=== PATIENT | male | born 1980 | race African-American/Black ===

== ENCOUNTER 2021-05-14 02:37 | Day surgery (SDC) | payer OTHER, SELFPAY ==
[2021-05-08 13:27] VITALS: BMI 36.2
[2021-05-14 08:45] VITALS: BP 141/78; PULSE 82; RESP 18; TEMP 36.4; O2SAT 100; BMI 37.5
--- NOTE | 2021-05-14 08:50 | WPDANESEPPF ---
Anes - Initial Pre Proc Eval Procedure: Operation Date: 05/14/21 09:30 Proposed Procedures p Colonoscopy - López Gauthier MD Date/Time: 05/14/21 08:50 Surgeon: López Gauthier MD Pre Op Diagnosis: diverticulitis Patient Data Age: 40 Gender: M Height: 1.91 m Weight: 136.1 kg Last Vital Signs Temp 36.4 C L 05/14/21 08:45 Pulse 82 05/14/21 08:45 Resp 18 05/14/21 08:45 BP 141/78 H 05/14/21 08:45 Pulse Ox 100 05/14/21 08:45 Allergies Allergy/AdvReac Type Severity Reaction Status Date / Time No Known Allergies Allergy Unknown Verified 05/14/21 08:44 Home Medications Medication Instructions Recorded Confirmed Type fluticasone propionate 50 1 spray NASAL DAILY PRN 11/08/19 05/08/21 History mcg/actuation nasal spray,suspension alprazolam [Xanax] 0.5 mg PO TID PRN 05/08/21 05/08/21 History valsartan-hydrochlorothiazide 1 tablet PO DAILY 05/08/21 05/08/21 History Patient hx anesthesia problems: none Family hx anesthesia problems: none Results Review: All pre-operative results and documents have been reviewed as part of the pre-operative evaluation. [facility] Past Medical History Medical History (Updated 05/14/21 @ 08:50 by Farshad Linares MD) Anxiety Hypertension Obesity RYAN (obstructive sleep apnea) Surgical History Surgical History Status post incision and drainage I&D complex pilonidal abscess 2017 Family History Family History Father Diabetes mellitus Mother Diabetes mellitus Breast cancer Hypertension Unknown Diabetes mellitus Hypertension Cancer Social History Social History Smoking status: Never smoker Alcohol intake: current Alcohol use details: rarely Substance use: current Substance use type: marijuana Last use: last year Living arrangements: with family Spiritual care concerns: No Anes - Eval Final PreProcedure Day of Procedure 05/14/21 08:50 Patient weight: obese Heart: regular rate and rhythm Lungs: clear to auscultation Airway: Mallampati scale class II Neurological: alert and oriented Last oral intake: >/= 8 hours ASA classification: III Emergent: no Anesthetic plan: proceed Anesthesia type and monitoring: general GIVS and standard monitoring Results Review: All pre-operative results and documents have been reviewed as part of the pre-operative evaluation. Informed Consent: The patient's anesthetic plan and its attendant risks and benefits were discussed with the patient/family/POA. Questions were solicited and answers provided to the satisfaction of the patient/family/POA.
[2021-05-14] MEDS: LACTATED RINGERS 1,000 ML 150 ML IV CONT (08:55)
--- NOTE | 2021-05-14 09:13 | P.CONGI_ITS ---
Assessment and Plan Assessment and plan (1) Diverticulitis: Code(s): K57.92 - Diverticulitis of intestine, part unspecified, without perforation or abscess without bleeding Status: Acute Assessment and Plan: Patient has a history of diverticulitis. Currently improved clinically. Plan is for high-fiber diet. Colonoscopy has been recommended will plan to proceed with this. It was deferred last year because of COVID restrictions. GI Consult Note Consult date/time: 05/14/21 09:13 HPI: Suzie Osorio is a 40 year old male presents for colonoscopy. Patient has a history of diverticulitis last year. He had rather significant abdominal pain that has subsequently improved after antibiotics. Currently bowel habits returned to normal. Denies abdominal pain. He has had no bleeding. His appetite is good. He has had intentional weight loss with dietary restriction. He presents today for colonoscopy because of prior history of diverticulitis. Review of Systems Review of Systems: All systems reviewed & are unremarkable except as noted in HPI and below PMFSH Past Medical History Medical History (Updated 05/14/21 @ 09:15 by López Gauthier MD) Anxiety Hypertension Obesity RYAN (obstructive sleep apnea) Surgical History Surgical History Status post incision and drainage I&D complex pilonidal abscess 2016 Family History Family History Father Diabetes mellitus Mother Diabetes mellitus Breast cancer Hypertension Unknown Diabetes mellitus Hypertension Cancer Social History Social History Smoking status: Never smoker Alcohol intake: current Alcohol use details: rarely Substance use: current Substance use type: marijuana Last use: last year Living arrangements: with family Spiritual care concerns: No Meds Home Medications and Allergies Home Medications Medication Instructions Recorded Confirmed Type fluticasone propionate 50 1 spray NASAL DAILY PRN 11/08/19 05/08/21 History mcg/actuation nasal spray,suspension alprazolam [Xanax] 0.5 mg PO TID PRN 05/08/21 05/08/21 History valsartan-hydrochlorothiazide 1 tablet PO DAILY 05/08/21 05/08/21 History Allergies Allergy/AdvReac Type Severity Reaction Status Date / Time No Known Allergies Allergy Unknown Verified 05/14/21 08:44 Vital Signs Vital Signs - 24 hr 05/14/21 08:45 Temperature 97.5 F L Pulse Rate 82 Respiratory Rate 18 Blood Pressure 141/78 H Pulse Oximetry 100 Exam Narrative: Physical exam reveals patient to be alert. Vital signs stable. HEENT exam is unremarkable. Patient is anicteric. Lungs are clear to ausc ultation and percussion. Heart is without murmur or extra sounds. Abdominal exam bowel sounds are present soft nontender with no organomegaly. Digital external rectal exam is normal.
[2021-05-14 09:52] VITALS: BP 112/42; PULSE 82; RESP 16; O2SAT 100
[2021-05-14 10:02] VITALS: BP 117/65; PULSE 77; RESP 18; O2SAT 100
[2021-05-14 10:12] VITALS: BP 134/77; PULSE 75; RESP 22; O2SAT 100
== END 2021-05-14 10:27 | disposition home or self-care (01) ==
PROVIDERS: PCP Family Medicine; Visit Provider Internal Medicine Gastroenterology
PROC: 0DJD8ZZ Inspection of Lower Intestinal Tract, Via Natural or Artificial Opening Endoscopic (ICD-10-PCS; CPT 45378; principal; 2021-05-14 09:30)
DX: K57.32 Diverticulitis of large intestine without perforation or abscess without bleeding (principal); D12.4 Benign neoplasm of descending colon; G47.33 Obstructive sleep apnea (adult) (pediatric); F41.9 Anxiety disorder, unspecified
CPT/HCPCS: 45385; 88305; J2704; J7120

== ENCOUNTER 2021-12-14 13:02 | Emergency (ER) | payer OTHER, SELFPAY ==
--- NOTE | ~2021-12-14 | XR_ITS ---
XR humerus LT DATE: 12/14/2021 13:43 INDICATION: Left arm pain TECHNIQUE: AP and lateral views COMPARISON: None FINDINGS: Dorsal olecranon process spur. Normal alignment at the acromioclavicular, glenohumeral and elbow joints. No fracture or dislocation, periosteal reaction or bone destruction of the left humerus. IMPRESSION: Dorsal olecranon process spur Reviewed, dictated and finalized at location A.
--- NOTE | ~2021-12-14 | XR_ITS ---
XR chest 2V DATE: 12/14/2021 13:43 INDICATION: Dizziness, near syncope TECHNIQUE: PA and lateral views COMPARISON: None FINDINGS: Normal heart size. No hilar or mediastinal enlargement. No pulmonary infiltrate or consolid ation, pleural effusion or pulmonary vascular congestion or pneumothorax. Included skeletal structures are unremarkable. IMPRESSION: Negative Reviewed, dictated and finalized at location A. IMPRESSION: Negative
[2021-12-14 13:02] VITALS: BP 144/83; PULSE 79; RESP 20; TEMP 36.9; O2SAT 99
--- NOTE | 2021-12-14 13:10 | ECG_ITS ---
Measurements Intervals [place] Rate: 79 P: 38 SD: 164 QRS: 24 QRSD: 109 T: 80 QT: 352 QTc: 405 Interpretive Statements SINUS RHYTHM POSSIBLE LEFT ATRIAL ENLARGEMENT INCOMPLETE RIGHT BUNDLE BRANCH BLOCK BORDERLINE ECG Electronically Signed On 12-14-2021 18:38:29 CDT by Tai Coy D.O.
[2021-12-14 13:12] VITALS: BP 130/65; BP 144/80; PULSE 84
[2021-12-14 13:36] LABS: Basophils Percent Auto 0.2 % (0.2-1.2); Eosinophils Absolute Auto 0.1 K/mm3 (0-0.3); Eosinophils Percent Auto 0.4 % (0-4.4); Hematocrit 50.4 % (42.0-52.0); Immature Granulocyte Absolute 0.06 K/mm3 (0.00-0.031); Immature Granulocyte Percent A 0.5 % (0-0.5); Lymphocytes Absolute Auto 1.11 K/mm3 (0.9-3.2); Lymphocytes Percent Auto 8.7 % (18.3-44.2); Mean Corpuscular HGB Conc 31.7 g/dl (32-36); Mean Corpuscular Hemoglobin 26.1 pg (26-34); Mean Corpuscular Volume 82.1 fl (80-100); Mean Platelet Volume 12.3 fl (7.4-10.4); Monocytes Absolute Auto 0.5 K/mm3 (0.1-0.6); Monocytes Percent Auto 3.8 % (2.6-8.5); Neutrophils Absolute Auto 11.1 K/mm3 (1.3-6.7); Neutrophils Percent Auto 86.4 % (45.5-73.1); Platelet Count Result 212 k/mm3 (150-375); Red Blood Count 6.14 M/mm3 (4.6-6.20); Red Cell Distribution Width 15.6 % (11.5-14.5); White Blood Count 12.8 K/mm3 (4.5-10.0)
--- NOTE | 2021-12-14 13:37 | ED.GENADULT ---
HPI - General Adult General Chief complaint: Syncope Stated complaint: syncopal Time Seen by Provider: 12/14/21 13:10 History of Present Illness HPI narrative: 41-year-old male presented to the emergency department for evaluation after having a syncopal episode. Patient states he was working on the yard and did injure his left arm. Patient states while he was inside resting he was talking to a friend and his left arm began hurting more. Patient became fixated on the left arm and states that he thinks he started to have a bit of an anxiety reaction to it. Patient states he did have some onset of diaphoresis lightheaded dizziness and then did have a near syncopal episode. Patient is still complaining of left arm pain that is reproducible. Patient denies any associated chest pain or shortness of breath. Patient does feel improved but does report a history of anxiety. Related Data Home Medications Medication Instructions Recorded Confirmed fluticasone propionate 50 1 spray intranasal DAILY PRN 11/08/19 05/08/21 mcg/actuation nasal allergies spray,suspension alprazolam 0.5 mg tablet (Xanax) 0.5 mg PO TID PRN Anxiety 05/08/21 05/08/21 valsartan 320 1 tablet PO DAILY 05/08/21 05/08/21 mg-hydrochlorothiazide 25 mg tablet Allergies Allergy/AdvReac Type Severity Reaction Status Date / Time No Known Allergies Allergy Unknown Verified 12/14/21 13:37 Review of Systems Review of Systems: CONSTITUTIONAL: Near syncope EYES: Denies visual changes, redness, or discharge. ENT: Denies rhinorrhea, congestion, sore throat, or otalgia. CARDIOVASCULAR: Denies chest pain, palpitations, or edema. RESPIRATORY: Denies cough or dyspnea. GASTROINTESTINAL: Denies abdominal pain, nausea, vomiting, or diarrhea. GENITOURINARY: Denies dysuria or hematuria. SKIN: Denies rash or itching. MUSCULOSKELETAL: Left arm pain, see HPI NEUROLOGIC: Denies headache, numbness, or weakness. PSYCHIATRIC: Anxiety [facility] Past Medical History Medical History (Updated 12/14/21 @ 16:57 by Ned Christopher MD) Anxiety Hypertension Obesity RYAN (obstructive sleep apnea) Surgical History Surgical History Status post incision and drainage I&D complex pilonidal abscess 2017 Family History Family History Father Diabetes mellitus Mother Diabetes mellitus Breast cancer Hypertension Unknown Diabetes mellitus Hypertension Cancer Social History Social History Smoking status: Never smoker Alcohol intake: current Alcohol use details: rarely Substance use: current Substance use type: marijuana Last use: last year Spiritual care concerns: No Exam Narrative: APPEARANCE: Well appearing, no pain, no distress, well-nourished. HEAD: normocephalic, atraumatic. EYES: PERRLA/EOMI, conjunctivae clear. NOSE: Normal no drainage EARS:TMS clear with good light reflex. THROAT: Pharynx clear, no exudate. NECK: Supple. No adenopathy, no masses. RESPIRATORY: Airway patent, respirations nonlabored. Clear to auscultation bilaterally, no rales, rhonchi, wheezing. CARDIOVASCULAR: Regular rate and rhythm without murmurs rubs or gallops. ABDOMINAL: Soft, nontender, nondistended, normal bowel sounds MUSCULOSKELETAL: Tenderness to distal tricep. NEURO: Alert. Cranial nerves II through XII intact. Grossly intact SKIN: Warm, dry. Normal Color PSYCHIATRIC: Normal affect/mood. Course Course Emergency Course: Patient was updated the results of the x-ray showing no acute fracture or dislocation. Clinically patient does have a triceps strain. Patient was referred to orthopedics for close follow-up. Patient was provided a pouch sling for comfort. Patient was also updated on the rest of his work-up and all questions and concerns were addressed. Patient was comfortable with the plan for discharge and
[2021-12-14] MEDS: HYDROmorphone HCL INJ (*CRX) 1 MG/ML SYR 0.5 MG IV PUSH ×2 (13:44→14:37)
[2021-12-14 14:01] LABS: Alanine Aminotransferase 42 U/L (6-50); Albumin Level 5.1 g/dL (3.5-5.1); Alkaline Phosphatase 79 U/L (38-126); Anion Gap 8 mmol/L (8-16); Aspartate Amino Transferase 52 U/L (17-59); Bilirubin,Total 0.7 mg/dL (0.2-1.3); Blood Urea Nitrogen 18 mg/dL (9-20); Calcium 9.8 mg/dL (8.4-10.2); Carbon Dioxide 28 mmol/L (22-30); Chloride 105 mmol/L (98-107); Estimated CRCL calculation 95 ml/min; Estimated Glomerular Filt Rate > 60; Glucose 109 mg/dL (65-110); Lactic Acid Reflex 1.7 mmol/L (0.7-2.0); Potassium 3.1 mmol/L (3.4-5.0); Sodium 141 mmol/L (137-145)
[2021-12-14] MEDS: SODIUM CHLORIDE 0.9% IV 1,000 ML 999 ML IV CONT (14:26)
[2021-12-14 15:03] LABS: Add Urine Microscopic? YES; Appearance Urine Clear (Clear); Bilirubin Urine Negative (Negative); Blood Urine Negative (Negative); Color Urine Yellow (Yellow); Glucose Urine UA Negative (Negative); Ketones Urine Negative (Negative); Leukocyte Esterase Ur Negative LEU/UL (Negative); Nitrate Urine Negative (Negative); Protein Urine 1+ mg/dL (Negative); Urobilinogen Urine 0.2 mg/dL (<2.0)
[2021-12-14 15:08] LABS: Bacteria Urine Trace /hpf; Mucus Urine Few /lpf; RBC Urine 0-2 /hpf (0-2); WBC Urine 0-3 /hpf
[2021-12-14 15:23] LABS: Amphetamine Screen Urine Negative (Negative); Barbiturate Screen Urine Negative (Negative); Benzodiazepines Screen Urine Negative (Negative); Cannabinoid Screen Urine Positive (Negative); Cocaine Screen Urine Negative (Negative); Methadone Screen Urine Negative (Negative); Opiate Screen Urine Negative (Negative); Phencyclidine Screen Urine Negative (Negative)
[2021-12-14 16:12] LABS: Troponin I < 0.012 ng/mL (0.000-0.034)
[2021-12-14 17:24] VITALS: BP 135/56; PULSE 87; RESP 17; O2SAT 98
== END 2021-12-14 17:24 | disposition home or self-care (01) ==
PROVIDERS: Emergency Provider Emergency Medicine; PCP Family Medicine
DX: R55 Syncope and collapse (principal); S46.312A Strain of muscle, fascia and tendon of triceps, left arm, initial encounter; I10 Essential (primary) hypertension; G47.33 Obstructive sleep apnea (adult) (pediatric); F41.9 Anxiety disorder, unspecified; E66.9 Obesity, unspecified; Z68.37 Body mass index [BMI] 37.0-37.9, adult; I45.10 Unspecified right bundle-branch block; R94.31 Abnormal electrocardiogram [ECG] [EKG]; W18.39XA Other fall on same level, initial encounter
CPT/HCPCS: 36415; 71046; 73060; 80053; 80307; 81001; 83605; 84484; 85025; 93005; 96361; 96374; 96376; 99284; A4565; J1170; J7030

== ENCOUNTER 2024-05-16 18:53 | Emergency (ER) | payer OTHER, SELFPAY ==
--- NOTE | ~2024-05-16 | CT_ITS ---
EXAMINATION: CT cervical spine wo con DATE: 05/16/2024 19:53 INDICATION: right arm neruopathy and pain TECHNIQUE: Computed tomography (CT) of the cervical spine was performed without intravenous contrast. Automated exposure control and iterative reconstruction technique were employed. The dose-length pro duct was 405.58 mGy-cm. COMPARISON: None. FINDINGS: Vertebral Body Alignment: Intact. Craniocervical and atlantoaxial alignment: Mild degenerative change. Alignment intact. Osseous structures/fracture: No evidence of a lytic or blastic process in the visualized spine. No e vidence of acute fracture. Cervical soft tissues: The paraspinal soft tissues planes are maintained. Degenerative changes: Mild multilevel degenerative disc disease with prominent anterior osteophytes a t C4-5 C5-6. Mild multilevel facet arthropathy. IMPRESSION: No acute fracture or traumatic malalignment in the cervical spine. No significant central canal or ne ural foraminal narrowing Reviewed, dictated and finalized at location K. WASH MANAGER IMPRESSION: No acute fracture or traumatic malalignment in the cervical spine. No significa nt central canal or neural foraminal narrowing
--- NOTE | ~2024-05-16 | CT_ITS ---
CT OF right shoulder EXAMINATION: CT shoulder RT wo con DATE: 05/16/2024 19:53 INDICATION: Right arm neuropathy and pain TECHNIQUE: Computed tomography (CT) of the right shoulder was performed without intravenous contrast. Automated exposure control and iterative reconstruction technique were employed. The dose-length pro duct was 537.40 mGy-cm. COMPARISON: None FINDINGS: Limitations: None Bones: The included osseous structures are within normal limits. There are no erosive or destructive bony lesions. Mild degenerative change at the AC joint and glenohumeral joint Soft Tissues:The soft tissues appear within normal limits. No evidence of mass or fluid collection. Fluid: No significant fluid within the joint capsule or surrounding bursal spaces. IMPRESSION: Mild right AC joint and glenohumeral joint osteoarthritis, otherwise normal right shoulder CT finding s Reviewed, dictated and finalized at location K. DEVELOPER IMPRESSION: Mild right AC joint and glenohumeral joint osteoarthritis, otherwise normal rig ht shoulder CT findings
[2024-05-16 19:00] VITALS: BP 145/89; PULSE 103; RESP 20; TEMP 37; O2SAT 100
[2024-05-16] MEDS: predniSONE 10 MG TABLET 50 MG PO (19:36)
[2024-05-16] MEDS: HYDROmorphone HCL INJ (*CRX) 1 MG/ML SYR IM (19:37)
--- NOTE | 2024-05-16 19:43 | PC.NURSE ---
Patient in CT at this time.
--- NOTE | 2024-05-16 19:52 | ED_ITS ---
HPI - Extremity Injury (Upper) General Chief Complaint: Extremity Injury, Upper Stated Complaint: R shoulder pain Time Seen by Provider: 05/16/24 19:07 History of Present Illness HPI narrative: 43-year-old male presenting to the emergency department for evaluation of right shoulder pain. He is currently undergoing physical therapy for right shoulder pain and pinched nerves in that area. He states that he went to physical therapy on Friday and had worsening pain after exercising. He is now having some subjective paresthesias in the dorsal aspect of the 1st 3 fingers of the right hand that radiated up into his neck. Has restricted range of motion where he gets pain when he flexes or extends, abducts his arm and shoulder above 90?. Difficulty with overlying had activity. No other injuries or trauma. Denies any falls. No weakness in the limb. He has been going to physical therapy for quite some time and otherwise been improving but does note that he did have a new injury to the right side of his neck over a month ago that reset his progress according to himself. Denies any chest pain, shortness a breath, headache, vision changes, weakness, numbness. Has tried some Aleve at home without any relief of his symptoms. Related Data Home Medications ?Medication ?Instructions ?Recorded ?Confirmed ?Last Taken ?Type fluticasone propionate 50 1 spray intranasal DAILY PRN 11/08/19 04/15/22 05/13/21 History mcg/actuation nasal allergies spray,suspension alprazolam 0.5 mg tablet (Xanax) 0.5 mg PO TID PRN Anxiety 05/08/21 04/15/22 05/13/21 History valsartan 320 1 tablet PO DAILY 05/08/21 04/15/22 05/13/21 History mg-hydrochlorothiazide 25 mg tablet Allergies Allergy/AdvReac Type Severity Reaction Status Date / Time No Known Allergies Allergy Unknown Verified 04/15/22 11:22 Review of Systems Review of Systems: As reviewed above in HPI [facility] Past Medical History Medical History RYAN (obstructive sleep apnea) Obesity Hypertension Anxiety Surgical History Surgical History Status post incision and drainage I&D complex pilonidal abscess 2017 Family History Family History Father Diabetes mellitus Mother Diabetes mellitus Breast cancer Hypertension Unknown Diabetes mellitus Hypertension Cancer Social History Social History Smoking status: Never smoker Alcohol intake: current Alcohol use details: rarely Substance use: current Substance use type: marijuana Last use: last year Living arrangements: with family Spiritual care concerns: No Exam Narrative: GENERAL: [Well-appearing, well-nourished, and in no acute distress.] HEAD: [Normocephalic, atraumatic.] EYES: [PERRLA and EOMI.] ENT: Nares clear, no rhinorrhea or epistaxis. Mucous membranes moist. NECK: Supple. CHEST: [Clear to auscultation. No respiratory distress.] HEART: [Regular rate and rhythm]. No murmur heard. [Normal peripheral pulses.] ABDOMEN: [Soft, nondistended], [nontender], [No rigidity or guarding] EXTREMITIES: Abduction and flexion of the shoulder restricted to 90? without causing pain, passive range of motion is full. Positive Neer's and Matias testing. Positive tenderness over the bicipital tendon on the right upper extremity. No step-offs deformities. Full strength throughout both arms. No step-offs to the spinal column. SKIN: Warm, dry, no rash. NEURO: [No focal deficits]. Alert and oriented [x3.] Full strength and sensation throughout both arms and legs, subjective paresthesias in the distribution of the right-sided radial nerve mostly localized to the right dorsal aspect the hand and distal forearm. No other nerve distributions identified PSYCH: [Normal mood and affect.] Course Vital Signs Vital signs: Vital Signs Temperature 37.0 C 05/16/24 19:00 Pulse Rate 103 H 05/16/24 19:00 Respiratory Rate 20 05/16/24 19:00 Blood Pressure 145/89 H 05/16/24 19:00 Pulse Oximetry 100 05/16/24 19:00 Oxygen Delivery Room Air 05/16/24 19:00 Temperature 37.0 C 05/16/24 19:00 Pulse Rate 67 05/16/24 22:22 Respiratory Rate 17 12/15/24 22:22 Blood Pressure 144/75 H 05/16/24 22:22 Pulse Oximetry 100 05/16/24 22:22 Oxygen Delivery Room Air 05/16/24 19:00 MDM - Extremity Injury (Upper) MDM Narrative Medical decision making narrative: 43-year-old male presenting with musculoskeletal symptoms of his right upper extremity as well as some neuropathy with pins and needle sensation in the distribution of the radial nerve on the right upper extremity. He is going through physical therapy currently to address these issues but states that 2 days ago in physical therapy had worsening pain after exercising. Tried some Aleve at home without symptom relief. Otherwise appears well not any acute distress and does have positive musculoskeletal signs including Neer's testing and Matias testing. Abduction and flexion above 90? elicits pain consistent with potential impingement syndrome versus bicipital tendinitis. He could have cervical strain as well and potential for a pinched nerve especially with the radial nerve distribution of his symptomatology. He has no weakness or actual numbness and low suspicion for any kind of intracranial pathology. CT of the shoulder and cervical spine were obtained and he was given symptomatic control with Dilaudid and prednisone. He was re-evaluated after medications and improvement and awaiting CT images at this time. Patient CT cervical spine shows no acute fractures or traumatic malalignment, no central canal stenosis or neural stenosis. Shoulder cc shows mild right-sided AC joint and glenohumeral joint osteoarthritis otherwise unremarkable CT findings. Patient had significant improvement after medications here and I believe he is stable for discharge home with regular follow-up with his PCP and back to physical therapy for continued symptom control and re-evaluation on outpatient basis. Patient comfortable with this plan of care. Will be sent home with a dose of steroids for continued symptom control. Medical Records Attestation: I reviewed the patient's medical records. Imaging Data Attestation: I personally reviewed and interpreted this imaging study as follows: My impression: Impressions Cervical Spine CT 05/16/24 19:57 IMPRESSION: No acute fracture or traumatic malalignment in the cervical spine. No significant central canal or neural foraminal narrowing Shoulder CT 05/16/24 19:59 IMPRESSION: Mild right AC joint and glenohumeral joint osteoarthritis, otherwise normal right shoulder CT findings Discharge Plan Discharge Clinical Impression: Impingement of right shoulder, Cervical muscle strain Patient Disposition: Home, Self-Care Condition: Stable Instructions: Antibiotic Form, Cervical Strain (DC), Shoulder Impingement Syndrome (ED), Rotator Cuff Injury Exercises (DC) Additional Instructions: Your CT scans are all reassuring without any damage or injury to her cervical spine or shoulder. There is some osteoarthritis and your clinical exam is consistent with impingement and cervical strain. Follow-up with your regular doctor as well as your physical therapist for continued symptom control but we will send you home with a Medrol Dosepak for inflammation and pain control. Return with any new or worsening concerns at any time. Patient Language: Singaporean Prescriptions: New methylprednisolone [Medrol (Mohamud)] 4 mg tablets,dose pack See Rx Instructions .ROUTE .COMPLEX Qty: 21 0RF Rx Instructions: orally per package directions No Action fluticasone propionate 50 mcg/actuation spray,suspension 1 spray NASAL DAILY PRN (Reason: allergies) Rx Instructions: administer into each nostril valsartan-hydrochlorothiazide 320-25 mg tablet 1 tablet PO DAILY alprazolam [Xanax] 0.5 mg Tablet 0.5 mg PO TID PRN (Reason: Anxiety) Follow-up/Referrals: Kamar,MD Betty [Primary Care Provider] - Time of Disposition: 22:31
[2024-05-16 22:22] VITALS: BP 144/75; PULSE 67; RESP 17; O2SAT 100
--- OUTSIDE RECORDS SUMMARY | 2024-05-21 21:10 | XMS_ITS | Encounter Summary ---
Author Organization [facility] Address [address] [place] [address]. [place] [address] [place] [address] Care Team Providers Care Dairy Cattle Farm Worker Name Role Phone Unavailable Primary Care Provider Unavailabl e Encounter Details Date Type Department Care Team (Late st Contact Info) Description 11/19/2002 Abstract [facility] Cardiology [address] [place] [address] Martín Blanton MD [address] [place] [address] Social History Tobacco Use Types Packs/Day Years Used Date Smoking Tobacco: Never Assessed Sex and Gender Information Value Date Recorded Sex Assigned at Not on file Legal Sex Male 5:38 PM MINING MANAGER Gender Identity Not on file Sexual Orientation Not on file documented as of this encounter Plan of Treatment Upcoming Encounters Date Type Department Care Team (Late st Contact Info) Description 05/27/2024 1:40 PM MINING MANAGER Office Visit [facility] [place] [address] [place] [address] Ryann Renner NP [address] [place] [address] 06/15/2024 1:00 PM MINING MANAGER Office Visit [facility] [place] [address] [place] [address] Betty Galvin MD [address] [place] [address] 11/30/2024 9:40 AM CDT Office Visit [facility] - [facility] [address] [place] [address] Nilo Dasilva DO [address] [place] [address] documented as of this encounter Visit Diagnoses Not on filedocumented in this encounter
--- OUTSIDE RECORDS SUMMARY | 2024-05-21 21:10 | XMS_ITS | Encounter Summary ---
Author Organization [facility] Address [address] [place] [address]. [place] [address] [place] [address] Care Team Providers Care Dust Puller Name Role Phone Betty Galvin MD Primary Care Provider [phone] Encounter Details Date Type Department Care Team (Latest Contact Info) Description 02/10/2024 Travel Social History Tobacco Use Types Packs/Day Years Used Date Smoking Tobacco: Never Smokeless Tobacco: Never Comments:Counseled by DR Leia villanueva. Alcohol Use Standard Drinks/Week Comments Yes 0 (1 standard drink = 0.6 oz pur e alcohol) socially AUDIT-C Answer Date Recorded Q1: How often do you have a drink containing alc ohol? Monthly or less 02/10/2024 Q2: How many drinks containi ng alcohol do you have on a typical day when you are drinking? 3 or 4 02/10/2024 Q3: How often do you have si x or more drinks on one occasion? Never 02/10/2024 PHQ-2 Answer Date Recorded Patient Health Questionnaire-2 Score 1 02/10/2024 Sex and Gender Information Value Date Recorded Sex Assigned at Not on file Legal Sex Male 5:38 PM TOOL ENGINEER Gender Identity Not on file Sexual Orientation Not on file documented as of this encounter Plan of Treatment Upcoming Encounters Date Type Department Care Team (Late st Contact Info) Description 05/27/2024 1:40 PM TOOL ENGINEER Office Visit [facility] Care - [address] [place] [address] Ryann Renner, OIL TESTER [address] [facility] [address] [place] [address] 06/15/2024 1:00 PM TOOL ENGINEER Office Visit [facility] - [place] [address] [facility] [address] [place] [address] Betty Galvin MD [address] [facility] [address] [place] [address] 11/30/2024 9:40 AM CDT Office Visit [facility] Multispecialty Care - [facility] [address] [facility] [address] [place] [address] Nilo Dasilva DO [address] [facility] [address] [place] [address] documented as of this encounter Visit Diagnoses Not on filedocumented in this encounter Additional Health Concerns Assessment Noted Time PHQ-9 Depression Total Score: 7 02/10/20 24 3:34 PM CDT documented as of this encounter Care Teams Dust Puller Relationship Specialty Start Date End Date Betty Galvin MD [address] [facility] [address] [place] [address] PCP - General INTERNAL MEDICINE 02/10/24 documented as of this encounter
--- OUTSIDE RECORDS SUMMARY | 2024-05-21 21:10 | XMS_ITS | Encounter Summary ---
Author Organization [facility] Address [address] [place] [address]. [place] [address] [place] [address] Care Team Providers Care Extractor Plant Operator Name Role Phone Betty Galvin MD Primary Care Provider [phone] Encounter Details Date Type Department Care Team (Latest Contact Info) Description 02/12/2024 Travel Social History Tobacco Use Types Packs/Day [...] on file Legal Sex Male 5:38 PM KINESIOTHERAPIST Gender Identity Not on file Sexual Orientation Not on file documented as of this encounter Plan of Treatment Upcoming Encounters Date Type Department Care Team (Late st Contact Info) Description 05/27/2024 1:40 PM KINESIOTHERAPIST Office Visit [facility] Multispecialty Care - [address] [place] [address] Ryann Renner, [facility] [address] [facility] [address] [place] [address] 06/15/2024 1:00 PM KINESIOTHERAPIST Office Visit [facility] Care - [place] [address] [facility] [address] [place] [address] Betty Galvin MD [address] [facility] [address] [place] [address] 11/30/2024 9:40 AM CDT Office Visit [facility] Multispecialty Care - [facility] [address] [place] [address] Nilo Dasilva DO [address] [facility] [address] [place] [address] documented as of this encounter Visit Diagnoses Not on filedocumented in this encounter Additional Health Concerns Assessment Noted Time PHQ-9 Depression Total Score: 7 02/10/20 24 3:34 PM CDT documented as of this encounter Care Teams Extractor Plant Operator Relationship Specialty Start Date End Date Betty Galvin MD [address] [facility] [address] [place] [address] PCP - General INTERNAL MEDICINE 02/10/24 documented as of this encounter
--- OUTSIDE RECORDS SUMMARY | 2024-05-21 21:10 | XMS_ITS | Encounter Summary ---
Author Organization [facility] Address [address] [place] [address]. [place] [address] [place] [address] Care Team Providers Care Wall Worker Name Role Phone Betty Galvin MD Primary Care Provider [phone] Encounter Details Date Type Department Care Team (Latest Contact Info) Description 04/08/2024 Scan HEALTH INFO SRVCS Scanned, Doc Med Group Social History Tobacco Use Types Packs/Day Years Used Date Smoking Tobacco: Never Smokeless Tobacco: Never Alcohol Use Standard Drinks/Week Comments Yes 0 [...] Date Recorded Patient Health Questionnaire-2 Score 1 04/12/2024 Sex and Gender Information Value Date Recorded Sex Assigned at Not on file Legal Sex Male 5:38 PM CONSTRUCTION ADMINISTRATOR Gender Identity Not on file Sexual Orientation Not on file documented as of this encounter Plan of Treatment Upcoming Encounters Date Type Department Care Team (Late st Contact Info) Description 05/27/2024 1:40 PM CONSTRUCTION ADMINISTRATOR Office Visit [facility] Multispecialty Care - [address] [place] [address] Ryann Renner, TUBER MACHINE OPERATOR HELPER [address] [facility] [address] [place] [address] 06/15/2024 1:00 PM CONSTRUCTION ADMINISTRATOR Office Visit [facility] Multispecialty Care - [place] [address] [place] [address] [address] [place] [address] Betty Galvin MD [address] [facility] [address] [place] [address] 11/30/2024 9:40 AM CDT Office Visit [facility] Multispecialty Care - [facility] [address] [facility] [place] [address] Nilo Dasilva DO [address] [facility] [address] [place] [address] documented as of this encounter Visit Diagnoses Not on filedocumented in this encounter Additional Health Concerns Assessment Noted Time PHQ-9 Depression Total Score: 7 02/10/20 24 3:34 PM CDT documented as of this encounter Care Teams Wall Worker Relationship Specialty Start Date End Date Betty Galvin MD [address] [facility] [address] [place] [address] PCP - General INTERNAL MEDICINE 02/10/24 documented as of this encounter
--- OUTSIDE RECORDS SUMMARY | 2024-05-21 21:10 | XMS_ITS | Encounter Summary ---
Author Organization [facility] Address [address] [place] [address]. [place] [address] [place] [address] Care Team Providers Care Second Butler Name Role Phone Betty Galvin MD Primary Care Provider [phone] Encounter Details Date Type Department Care Team (Latest Contact Info) Description 02/12/2024 - 02/12/2024 11:59 PM T Hospital [facility] [address] [place] [address] Betty Galvin MD [address] [facility] [address] [place] [address] Discharge Disposition: Home or Self Care (Routine Discharge) Social History Tobacco Use Types Packs/Day Years [...] on file Legal Sex Male 5:38 PM LIQUEFACTION SUPERVISOR Gender Identity Not on file Sexual Orientation Not on file documented as of this encounter Medications at Time of Discharge valsartan-hydroCHL OROthiazide (DIOVAN-HCT) 320-25 MG tabletIndications: Primary hypertension Take 1 tablet by mouth daily. 90 tablet 1 02/10/2024 buPROPion (WELLBUTRIN) 75 MG tabletIndications: Anxiety Take 1 tablet (75 mg total) by mouth 2 (two) times daily. 180 tablet 02/10/2024 04/12/2024 busPIRone (BUSPAR) 5 MG tabletIndications: Anxiety Take 1 tablet (5 mg total) by mouth 2 (two) times daily. 60 tablet 1 02/10/2024 03/04/2024 documented as of this encounter Plan of Treatment Upcoming Encounters Date Type Department Care Team (Late st Contact Info) Description 05/27/2024 1:40 PM LIQUEFACTION SUPERVISOR [facility] [place] [facility] - [place] [address] [address] [place] [address] [place] [address] [place] [address] [address] [place] [address] 06/15/2024 1:00 PM LIQUEFACTION SUPERVISOR [facility] - [place] [address] [place] [address] [place] [address] [place] [address] [address] [place] [address] 11/30/2024 9:40 AM CDT [facility] [place] [facility] - [facility] [address] [facility] [address] [place] [address] Nilo Dasilva DO [address] [facility] [address] [place] [address] documented as of this encounter Visit Diagnoses Not on filedocumented in this encounter Additional Health Concerns Assessment Noted Time PHQ-9 Depression Total Score: 7 02/10/20 24 3:34 PM CDT documented as of this encounter Care Teams Second Butler Relationship Specialty Start Date End Date Betty Galvin MD [address] [address] PCP - General INTERNAL MEDICINE 02/10/24 documented as of this encounter
--- OUTSIDE RECORDS SUMMARY | 2024-05-21 21:10 | XMS_ITS | Encounter Summary ---
Author Organization [facility] Address [address] [place] [address]. [place] [address] [place] [address] Care Team Providers Care Field Training Manager Name Role Phone Betty Galvin MD Primary Care Provider [phone] Reason for Visit * Reason Comments Obstructive Sleep Apnea On cpap; would l lucy a new cpap * Consultation (Routine) - Authorized Specialty Diagnoses / Procedures Referred By Contact Referred To Contact SLEEP & RESPIRATORY CARE Diagnoses GONZÁLEZ on CPAP Procedures OFFICE/OUTPATIENT NEW LOW MDM 30-44 MINUTES OFFICE/OUTPT VISIT,NEW,LEVL IV OFFICE/OUTPT VISIT,NEW,LEVL V OFFICE/OUTPT VISIT,EST,LEVL III OFFICE/OUTPT VISIT,EST,LEVL IV OFFICE/OUTPT VISIT,EST,LEVL V Betty Galvin MD [address] [facility] [address] [place] [address] Phone: tel:[phone] fax:[phone] [facility] Mult[facility]pec[facility] Care - [facility] [address] [facility] [place] [address] Phone: tel: fax: Referral ID Status Reason Start Date Expiration Date Visits Requested Visits Authorized [id number] Authorized Specialty Services 02/10/2024 02/09/2025 99 99 Encounter Details Date Type Department Care Team (Latest Contact Info) Description 04/07/2024 11:00 AM MANAGER COPY Office Visit [facility] - [facility] [address] [facility] [address] [place] [address] Nilo Dasilva DO [address] [facility] [address] [place] [address] Obstructive Sleep Apnea (On cpap; would like a new cpap ) Social History Tobacco Use Types Packs/Day Years Used Date Smoking Tobacco: Never Smokeless Tobacco: Never Tobacco Cessation:Counseling Given: Yes Alcohol Use Standard Drinks/Week Comments Yes 0 [...] on file Legal Sex Male 5:38 PM MANAGER COPY Gender Identity Not on file Sexual Orientation Not on file documented as of this encounter Last Filed Vital Signs Vital Sign Reading Time Taken Comments Blood Pressure 124/75 04/07/2024 11:01 AM MANAGER COPY Pulse 93 04/07/2024 11:01 AM MANAGER COPY Temperature - - Respiratory Rate 16 04/07/2024 11:01 AM MANAGER COPY Oxygen Saturation 96% 04/07/2024 11:01 AM MANAGER COPY Inhaled Oxygen Concentration - - Weight 127 kg (280 lb) 04/07/2024 11:01 AM MANAGER COPY Height 189.2 cm (6' 2.5 ) 04/07/2024 11:01 AM CS T Body Mass Index 35.47 04/07/2024 11:01 AM MANAGER COPY documented in this encounter Patient Instructions * Patient Instructions* Nilo Dasilva DO - 04/07/2024 11:00 AM MANAGER COPY Images from the original note were not included. PATIENT INSTRUCTIONS Please review the following items discussed in your visit today: we sent a prescription for this to a biomedical equipment technician/CPAP company, they should contact you to set this up soon, sometimes can take a while, would keep in touch with them every few weeks, call my office if you have issues. If you don't hear from them within 1 week please let me know. Would encourage weight loss through diet and exercise to improve your sleep apnea. Try to avoid alcohol and sedatives at night as to not worsen your sleep apnea. Would recommend to change your CPAP mask and straps every 6 months. Return to clinic: 3m, or sooner if your symptoms change or worsen. 3. If you have any questions or concerns please send us a [employer] message for the most timely response However, you can always call us at ([phone]) during office hours 4. It was my pleasure to take care of you today, looking forward to seeing you at your next appointment. 5. Please let us know how we are doing and leave a review for me on Google with the following QR code. You do not need an account and doesn't sign you up for anything. a. Usually can hover your smartphone camera over this QR code like you are taking a picture and just click on the link that forms under the QR code b.Alternatively you can use a QR scanner nichelle through the [employer]). c.If you don't have a smart phone and want to leave a review for me you can always search Dr. Barnett DO Google review to let us know how we are doing. Sincerely, Dr. Shoaib Dasilva GER COPY GER COPY documented in this encounter Progress Notes * Nilo Dasilva DO - 04/07/2024 11:00 AM CST [facility] P[facility]IC[facility] CLINIC NOTE History of Present Illness Suzie Osorio is a 43-year-old male who presented to our clinic for: Chief Complaint Patient presents with Obstructive Sleep Apnea On cpap; would like a new cpap Initial Pulmonary OV 04/07/2024: The patient presents today to establish care for for sleep apnea. -- notes having issues with poor sleep at night, daytime fatigue, led to sleep study in ~2015, afterwards was started on cpap therapy. Notes since then, sleep quality has improved. -- notes no issues with cpap machine, getting more restful sleep at night with cpap, not having significant daytime fatigue, no cpap download to review / answered questions and concerns regarding cpap. Waking up a few times throughout the night, not having much fatigue. -- Reports no symptoms consistent with any other parasomnias. Other Relevant Hx: Imaging reviewed: Testing/Data reviewed: Labs: Echo: PFT: Sleep Data: -- PSG 2016: overall ahi 6/h, RDI 9/h --- PS06/2015; ahi 0/h on 8cmH2O -- no DL to review Past Medical History: Diagnosis Date Diverticulitis Hypertension Sleep apnea Sleep apnea, unspecified Past Surgical History: Procedure Laterality Date BACK SURGERY Social History Tobacco Use Smoking status: Never Smokeless tobacco: Never Vaping Use Vaping status: Never Used Substance Use Topics Alcohol use: Yes Comment: socially Drug use: Never Family History Problem Relation Name Age of Onset Asthma Mother Current Outpatient Medications Medication Sig Dispense Refill buPROPion (WELLBUTRIN) 75 MG tablet Take 1 tablet (75 mg total) by mouth 2 (two) times daily. 180 tablet 0 busPIRone (BUSPAR) 5 MG tablet TAKE 1 TABLET BY MOUTH TWICE A DAY 180 tablet 0 valsartan-hydroCHLOROthiazide (DIOVAN-HCT) 320-25 MG tablet Take 1 tablet by mouth daily. 90 tablet1 No current facility-administered medications for this visit. Review of patient's allergies indicates: Not on File Immunization History Administered Date(s) Administered PFIZER COVID-19 (ORIGINAL FORMULATION, PURPLE CAP) mRNA, LNP-S, PF, 30 MCG/0.3 ML DOSE 10/21/2020, 11/21/2020 Tdap (Adacel) 02/12/2024 Review of Systems Constitutional: Negative for malaise/fatigue and weight loss. HENT: Negative for congestion and sore throat. Respiratory: Negative for cough, hemoptysis, sputum production, shortness of breath and wheezing. Cardiovascular: Negative for chest pain, palpitations, orthopnea, leg swelling and PND. Endo/Heme/Allergies: Negative for environmental allergies. Psychiatric/Behavioral: The patient does not have insomnia. Physical Exam Filed Vitals: 04/07/24 1101 BP: 124/75 Pulse: 93 Resp: 16 SpO2: 96% Weight: 127 kg (280 lb) Height: 1.892 m (6' 2.5 ) GEN: Pleasant, in NAD NEURO: Alert, oriented x3, no focal neurologic deficits noted PSYCH: Affect is normal HEAD: NC, AT EENT: mallampati 3 NECK: Supple, trachea midline LN: No appreciable cervical lymphadenopathy PULM: non-labored, CTAB, no wheezes/crackles HEART: normal s1,s2, rrr, no audible murmur GI: non-distended MSK: Normal range of motion of b/l hand/wrist joints without effusion or joint tenderness EXTR: No clubbing, no edema Skin: No visible rashes, no visible tattoos Assessment #. González on cpap The patient continues to use, need, and benefit from CPAP therapy. #. Obesity -- Body mass index is 35.47 kg/m??. Plan -- order new cpap APAP [id number] of cpap. -- patient encouraged to use CPAP nightly and change mask/straps out every 6 months. -- Will renew CPAP supplies for 1 year. -- recommend weight loss with diet and exercise as able. RTC 3m Dr. Shoaib Dasilva [facility] Pulmonary Medicine GER COPY documented in this encounter Plan of Treatment Upcoming Encounters Date Type Department Care Team (Late st Contact Info) Description 05/27/2024 1:40 PM MANAGER COPY Office Visit [facility] - [address] [place] [address] Ryann Renner NP [address] [facility] [address] [place] [address] 06/15/2024 1:00 PM MANAGER COPY [facility] [place] [address] [facility] [address] [place] [address] [place] [address] [place] [address] [address] [place] [address] 11/30/2024 9:40 AM CDT Office Visit [facility] Multispecialty Care - [facility] [address] [place] [place] [address] Nilo Dasilva DO [address] [facility] [address] [place] [address] documented as of this encounter Visit Diagnoses Diagnosis GONZÁLEZ on CPAP- Primary Obstructive sleep apnea (adult) (pediatric) Class 2 severe obesity due to excess calories with serious comorbidity and body mass index (BMI) of 35.0 to 35.9 in adult ([facility]) documented in this encounter Additional Health Concerns Assessment Noted Time PHQ-9 Depression Total Score: 7 02/10/20 24 3:34 PM CDT documented as of this encounter Care Teams Field Training Manager Relationship Specialty Start Date End Date Betty Galvin MD [address] [address] PCP - General INTERNAL MEDICINE 02/10/24 documented as of this encounter
--- OUTSIDE RECORDS SUMMARY | 2024-05-21 21:10 | XMS_ITS | Clinical Summary ---
Author Organization [facility] Address [facility] [place] [address] [place] [address] Care Team Providers Care Communications Media Professor Name Role Phone Betty Galvin MD Primary Care Provider [phone] Allergies No known active allergies Medications valsartan-hydroCH LOROthiazide (DIOVAN-HCT) 320-25 MG tabletIndications :Primary hypertension Take 1 tablet by mouth daily. 90 tablet 1 4 Active busPIRone (BUSPAR) 10 MG tabletIndications :Anxiety Take 1 tablet (10 mg total) by mouth 3 (three) times daily. 270 tablet 1 4 Active buPROPion XL (WELLBUTRIN XL) 300 MG 24 hr tabletIndications :Mild episode of recurrent major depressive disorder (CMS/HCC) Take 1 tablet (300 mg total) by mouth every morning. 90 tablet 1 4 Active hydrOXYzine (ATARAX) 50 MG tabletIndications :Anxiety Take one to two tablets nightly to help with sleep. 90 tablet 1 4 Active cyclobenzaprine (FLEXERIL) 10 MG tabletIndications :Muscle spasm Take 1 tablet (10 mg total) by mouth nightly as needed for Muscle Spasms. 30 tablet 1 4 Active celecoxib (CELEBREX) 100 MG capsuleIndication s:Neck pain on right side Take 1 capsule (100 mg total) by mouth 2 (two) times daily for 30 days. 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 [place] [address] Ryann Renner, SQL ANALYST ER F/U 05/20/2024 Travel 05/19/2024 Scan [facility] Scanned, [facility] 05/16/2024 Scan [facility] Scanned, [facility] 04/23/2024 Scan [facility] Scanned, [facility] 04/12/2024 1:40 PM APPLE SORTER Office Visit [facility] [address] [place] [address] Betty Galvin MD Follow Up; Anxiety; Depression 04/12/2024 Travel 04/08/2024 Scan [facility] Scanned, [facility] 04/07/2024 11:00 AM APPLE SORTER [facility] [address] [place] [address] Nilo Dasilva DO Obstructive Sleep Apnea (On cpap; would like a new cpap ) 04/07/2024 Telephone [facility] [address] [place] [address] Nilo Dasilva, DO Orders 04/07/2024 Travel 03/25/2024 Scan [facility] Scanned, [facility] from Last 3 Months Immunizations Name Administration Dates Next Due Tdap (Adacel) 02/12/2024 Family History Medical History Relation Comments Asthma Mother Relation Status Comments Mother Alive Social History Tobacco Use Types Packs/Day Years Used Date Smoking Tobacco: Never Passive Smoke Exposure: Never Smokeless Tobacco: Never Tobacco Cessation:Counseling Given: Not Answered Alcohol Use Standard Drinks/Week Comments Yes 0 [...] on file Legal Sex Male 5:38 PM APPLE SORTER Gender Identity Not on file Sexual Orientation Not on file Last Filed Vital Signs Vital Sign Reading Time Taken Comments Blood Pressure 140/87 05/20/2024 1:02 PM APPLE SORTER Pulse 115 05/20/2024 1:02 PM APPLE SORTER Temperature 36.9 ??C (98.4 ??F) 05/20/2024 1:02 PM CS T Respiratory Rate 19 05/20/2024 1:02 PM APPLE SORTER Oxygen Saturation 99% 05/20/2024 1:02 PM APPLE SORTER Inhaled Oxygen Concentration - - Weight 126.1 kg (278 lb) 05/20/2024 1:02 PM APPLE SORTER Height 189.2 cm (6' 2.5 ) 05/20/2024 1:02 PM APPLE SORTER Body Mass Index 35.22 05/20/2024 1:02 PM APPLE SORTER Plan of Treatment Upcoming Encounters Date Type Department Care Team (Late st Contact Info) Description 05/27/2024 1:40 PM APPLE SORTER Office Visit [facility] - [address] [place] [address] Ryann Renner NP [address] [place] [address] 06/15/2024 1:00 PM APPLE SORTER Office Visit [facility] - [place] [address] [place] [address] Betty Galvin MD [address] [place] [address] 11/30/2024 9:40 AM CDT [facility] [address] [place] [address] Nilo Dasilva DO [address] [place] [address] Health Maintenance Due Date Last Done Comments Pneumococcal Vaccine: Pediatrics (0 to 5 Years) and At-Risk Patients (6 to 64 Years) (1 of 2 - PCV) 1988 Hepatitis B Vaccines (1 of 3 - 19+ 3-dose series) 2001 COVID-19 Vaccine ( - 2023-2 5 season) 2024 11/21/2020, 10/21/2020 Annual Physical 02/09/2025 02/10/2024 Influenza Adult (#1) 2025 Postpon ed from 03/02/2024 (Patient Refused) DTaP, Tdap and Td Vaccines ( 3 - Td or Tdap) 02/11/2034 02/12/2024, 07/09/1996 Hepatitis C Completed 02/12/2024 HPV Vaccines Aged Out No longer eligi ble based on patient's age to complete this topic Meningococcal Vaccine Aged Out No olga macie eligible based on patient's age to complete this topic RSV Immunizations Under 20 Months Aged Out No longer eligible b ased on patient's age to complete this topic Procedures Procedure Name Priority Date/Time Associated Diagnosis Comments HEPATITIS C ANTIBODY Routine 02/12/2024 8:51 AM CDT Annual physical exam Establishing care with new doctor, encounter for General medical exam Encounter for hepatitis C screening test for low risk patient from Last 3 Months or Most Recently Relevant to Health Maintenance Results * HEPATITIS C ANTIBODY (02/12/2024 8:51 AM CDT) HEPATITIS C AB NON-REACTI VE NON-REACT SHANELL 02/13/2024 7:12 PM CDT [facility] Comment: ANTIBODIES TO HCV NOT DETECTED. DOES NOT EXCLUDE THE POSSIBILITY OF EXPOSURE TO HCV. 02/12/2024 8:51 AM CDT Betty Galvin MD LABORATORY Final Result Performing Organization Address City/State[facility] Co de Phone Number [facility] [address] [place] [phone], [id number] from Last 3 Months or Most Recently Relevant to Health Maintenance Insurance [employer] Care Teams Communications Media Professor Relationship Specialty Start Date End Date Betty Galvin MD [address] [place] [id number] PCP - General INTERNAL MEDICINE 02/10/24
--- OUTSIDE RECORDS SUMMARY | 2024-05-21 21:10 | XMS_ITS | Encounter Summary ---
Author Organization [facility] Address [address] [place] [address]. [place] [address] [place] [address] Care Team Providers Care Sawyer Helper Name Role Phone None, Provider Primary Care Provider Unavaila ble Reason for Referral * Imaging (Emergency) - Closed Specialty Diagnoses / Procedures Referred By Josue t Referred To Contact RADIOLOGY Procedures CT ABD+PEL W IV CON ONLY Toshia Ovalles PA [address] [place] [address] Phone: tel: fax: Referral ID Status Reason Start Date Expiration Date Visits Re quested Visits Authorized [id number] Closed 07/16/2019 08/13/2020 1 1 CTURAL ANALYST Reason for Visit * Reason Comments Abdominal Pain Encounter Details Date Type Department Care Team (Late st Contact Info) Description 07/16/2019 5:58 PM STRUCTURAL ANALYST - 07/16/2019 10:31 PM STRUCTURAL ANALYST Emergency [facility] Emergency Room [employer], [place] [id number] Nataliia Frausto NP [address] [phone] Abdominal Pain Discharge Disposition: Home or Self Care (Routine Discharge) Social History Tobacco Use Types Packs/Day Years Used Date Smoking Tobacco: Never Smokeless Tobacco: Never Alcohol Use Standard Drinks/Week Comments Yes 0 (1 standard drink = 0.6 oz pur e alcohol) socially Sex and Gender Information Value Date Recorded Sex Assigned at Not on file Legal Sex Male 5:38 PM STRUCTURAL ANALYST Gender Identity Not on file Sexual Orientation Not on file documented as of this encounter Last Filed Vital Signs Vital Sign Reading Time Taken Comments Blood Pressure 149/98 07/16/2019 5:53 PM STRUCTURAL ANALYST Pulse 104 07/16/2019 5:53 PM STRUCTURAL ANALYST Temperature 36.3 ??C (97.4 ??F) 07/16/2019 5:53 PM CS T Respiratory Rate 20 07/16/2019 5:53 PM STRUCTURAL ANALYST Oxygen Saturation 98% 07/16/2019 8:15 PM STRUCTURAL ANALYST Inhaled Oxygen Concentration - - Weight 145.7 kg (321 lb 3.4 oz) 07/16/2019 5:53 PM STRUCTURAL ANALYST Height 189.2 cm (6' 2.5 ) 07/16/2019 5:53 PM STRUCTURAL ANALYST Body Mass Index 40.69 07/16/2019 5:53 PM STRUCTURAL ANALYST documented in this encounter Discharge Instructions * Discharge Instructions* Nataliia Frausto NP - 07/16/2019 9:52 PM STRUCTURAL ANALYST 1) Please use medications as directed for abdominal discomfort. Zofran can be used as needed for nausea. Take medication and wait 15 minutes before attempting oral intake. 2) For diet,Start with liquids: soup, broth, juices, then soft foods and bland foods (banana, rice,apple sauce, toast) with advancement as tolerated. 3) Important to stay very hydrated. Drink at least 8- 8oz glasses of water daily 4) Follow up with PCP/your doctor this week for re-evaluation and your GI specialist 5) Return to the emergency room for any new or worsening symptoms especially for fever, uncontrollable vomiting, blood in vomit or other new emergent concerns. CTURAL ANALYST * Attachments The following attachments cannot be sent through Care Everywhere. * Diverticulitis Discharge Instructions (Kenyan) * High Fiber Diet (Kenyan) documented in this encounter Medications at Time of Discharge hydrocodone-aceta minophen (NORCO) 5-325 MG tabletIndications :Acute Pain < 7 Day Supply Take 1 tablet by mouth every 6 (six) hours as needed. Indications: Acute Pain < 7 Day Supply 16 tablet 07/16/2019 02/10/2024 levofloxacin (LEVAQUIN) 500 MG tablet Take 1 tablet (500 mg total) by mouth daily for 10 days. 10 tablet 07/16/2019 07/26/2019 metroNIDAZOLE 500 MG tablet Take 1 tablet (500 mg total) by mouth 3 (three) times daily for 10 days. 30 tablet 07/16/2019 07/26/2019 valsartan (DIOVAN) 320 MG tablet 02/09/2011 02/10/2024 documented as of this encounter ED Notes * Ant Mustafa RN - 07/16/2019 10:30 PM CST Patient given discharge information and prescriptions. Patient instructed to f/u with PCP or returnto the ER if symptoms persisted. Patient had no further questions. CTURAL ANALYST * Nataliia Frausto NP - 07/16/2019 7:10 PM CST Emergency Department Note Chief Complaint Chief Complaint Patient presents with ??? Abdominal Pain History of Present Illness 39-year-old male with a history of hypertension and diverticulitis with Complains of abdominal painfor the last 3 days, states that it is movable, got worse yesterday. This evening he was riding on his right side and when he moved to his left side, the pain followed it to the left side. Denies any diarrhea or vomiting. No fever or chills. He has a history of colonoscopy proven diverticulosis. Has had diverticulitis in the past. He states this does not feel at all like diverticulitis. He states he is able to eat. He did take Tums and Gas-X without any relief of symptoms. Ports a normal BM yesterday and 1 this morning. Usually will move his bowels 2 or 3 times a day. Denies any blood in his stools. Medical History ALLERGIES: Not on File MEDICATIONS: Prior to Admission medications Medication Sig Start Date End Date Taking? Authorizing Provider hydrocodone-acetaminophen (NORCO) 5-325 MG tablet Take 1 tablet by mouth every 6 (six) hours as needed. Indications: Acute Pain < 7 Day Supply 07/16/19 Yes TUTU Thomas levofloxacin (LEVAQUIN) 500 MG tablet Take 1 tablet (500 mg total) by mouth daily for 10 days. 07/16/19 07/26/19 Yes TUTU Thomas metroNIDAZOLE 500 MG tablet Take 1 tablet (500 mg total) by mouth 3 (three) times daily for 10 days. 07/16/19 07/26/19 Yes TUTU Thomas PAST MEDICAL HISTORY: Past Medical History: Diagnosis Date ??? Diverticulitis ??? Hypertension PAST SURGICAL HISTORY: Past Surgical History: Procedure Laterality Date ??? BACK SURGERY FAMILY HISTORY: Family history negative pertinent to encounter SOCIAL HISTORY: Social History Tobacco Use ??? Smoking status: Never Smoker ??? Smokeless tobacco: Never Used Substance Use Topics ??? Alcohol use: Yes Comment: socially ??? Drug use: Never Review of Systems Review of Systems Constitutional: Negative for chills and fever. HENT: Negative for sore throat. Respiratory: Negative for cough and shortness of breath. Cardiovascular: Negative for chest pain. Gastrointestinal: Positive for abdominal pain. Negative for constipation, diarrhea and nausea. Genitourinary: Negative for difficulty urinating. Skin: Negative for rash. Neurological: Negative for light-headedness and headaches. Psychiatric/Behavioral: Negative for decreased concentration. All other systems reviewed and are negative. Physical Exam Filed Vitals: 07/16/19 1753 07/16/192014 BP: (!) 149/98 Pulse: 104 Resp: 20 Temp: 97.4 ??F (36.3 ??C) TempSrc: Temporal SpO2: 97% 98% Weight: (!) 145.7 kg (321 lb 3.4 oz) Height: 6' 2.5 (1.892 m) Physical Exam Constitutional: He is oriented to person, place, and time. He appears well- developed and well-nourished. No distress. HENT: Head: Normocephalic. Eyes: Pupils are equal, round, and reactive to light. Neck: Neck supple. Cardiovascular: Normal rate, regular rhythm, normal heart sounds and intact distal pulses. No murmur heard. Pulmonary/Chest: Effort normal and breath sounds normal. Abdominal: Soft. Bowel sounds are normal. There is tenderness. To light touch to left upper quadrant and left lateral quadrant. No rebound. Bowel sounds are present. Musculoskeletal: He exhibits no edema or tenderness. Neurological: He is alert and oriented to person, place, and time. Skin: Skin is warm and dry. No pallor. Psychiatric: He has a normal mood and affect. His behavior is normal. Judgment and thought content normal. Nursing note and vitals reviewed. Diagnostic Studies / Procedures ELECTROCARDIOGRAMS: No results found for this visit on 07/16/19. LABORATORY STUDIES: Results for orders placed or performed during the hospital encounter of 07/16/19 CBC W/DIFF AUTOMATED Result Value Ref Range WBC 13.7 (H) 4.5 - 11.0 x10'3/uL RBC 5.60 4.70 - 6.10 x10'6/uL HGB 14.6 14.0 - 18.0 G/DL HCT 45.1 43.0 - 54.0 % MCV 80.5 80.0 - 94.0 FL MCH 26.1 (L) 27.0 - 31.0 PG MCHC 32.4 32.0 - 36.0 G/DL RDW 14.4 11.5 - 14.5 % PLT 212 130 - 400 x10'3/uL MPV 11.7 9.3 - 12.2 FL DIFFERENTIAL TYPE AUTOMATED DIFFERENTIAL NEUTROPHILS 78.3 % LYMPHOCYTES 14.6 % MONOCYTES 5.8 % EOSINOPHILS 0.8 % BASOPHILS 0.1 % IMMATURE GRANS 0.4 % ABS. NEUTROPHILS TOTAL 10.75 (H) 1.80 - 7.70 x10'3/uL ABS. LYMPHOCYTES 2.00 1.00 - 4.80 x10'3/uL ABS. MONOCYTES 0.80 0.30 - 0.82 x10'3/uL ABS. EOSINOPHILS 0.11 0.04 - 0.54 x10'3/uL ABS. BASOPHILS 0.02 0.01 - 0.08 x10'3/uL ABS. IMMATURE GRANULOCYTES 0.05 0.00 - 0.49 x10'3/uL COMPREHENSIVE METABOLIC PANEL Result Value Ref Range GLUCOSE 101 (H) 70 - 99 MG/DL BUN 11 7 - 18 MG/DL CREATININE 1.20 0.7 - 1.3 MG/DL SODIUM 140 136 - 145 MMOL/L POTASSIUM 3.4 (L) 3.5 - 5.1 MMOL/L CHLORIDE 106 100 - 108 MMOL/L CO2 27.6 21 - 32 MMOL/L CALCIUM 9.2 8.5 - 10.1 MG/DL TOTAL BILIRUBIN 0.8 0.2 - 1.2 MG/DL TOTAL PROTEIN 7.6 6.4 - 8.2 G/DL ALBUMIN 3.6 3.4 - 5.0 G/DL AST 20 15 - 37 U/L ALT 48 16 - 60 U/L ALK PHOS 84 50 - 136 U/L ANION GAP 6.4 5 - 15 MMOL/L BUN CREATININE RATIO 9.2 6 - 26 A/G RATIO 0.9 (L) 1.0 - 2.0 RATIO eGFR Non-Afr. Amer. 77 (L) >90 ML/MIN/1.73 M2 eGFR Afr. Amer. 89 (L) >90 ML/MIN/1.73 M2 LIPASE Result Value Ref Range LIPASE 64 (L) 73 - 393 UNITS/L LACTIC ACID Result Value Ref Range LACTIC ACID 0.7 0.4 - 2.0 MMOL/L CULTURE, BACTERIA, BLOOD Result Value Ref Range Spec. Description BLOOD Special Requests: NO SPECIAL REQUEST Culture Result: NO GROWTH 1 DAY CULTURE, BACTERIA, BLOOD Result Value Ref Range Spec. Description BLOOD Special Requests: NO SPECIAL REQUEST Culture Result: NO GROWTH [address] ABD+PEL W IV CON ONLY Final Result by User, [id number] (07/16 1930) EXAM: CT ABD+PEL W CON DATE: 07/16/2019 COMPARISON: None INDICATION: Diffuse abdominal pain. TECHNIQUE: Postcontrast imaging with 100 cc intravenous Isovue-370. FINDINGS: The lung bases are clear. Small amount of gastroesophageal reflux or vomiting evident in the lower esophagus. Stomach is poorly distended, but grossly normal. Motion artifact in the upper abdomen. Normal enhancement of the liver, spleen, adrenal glands, and pancreas. Hazy peripancreatic densities are probably artifactual. Motion artifact versus some minimal pericholecystic fluid. No calcified gallstones. No bile duct dilation. The spleen is enlarged measuring 8.6 x 14.7 x 13 cm. Normal enhancement of the kidneys. Small left renal cyst. No urinary tract obstruction. Moderate size fat-containing left inguinal hernia. Multiple diverticuli from the splenic flexure distally. Short segment of abnormal appearing descending colon. This shows decreased lumen size, diffuse inflammation in the adjacent fat, and some free fluid along the posterior aspect of the left anterior pararenal space. Findings most likely represent acute diverticulitis. No associated bowel obstruction, abscess, or free air. Normal appendix. Normal small bowel. No acute bone findings. IMPRESSION: 1. Gastroesophageal reflux or vomiting. 2. Abnormal findings in the descending colon and adjacent fat most compatible with a short length of acute diverticulitis. A dose lowering technique was used for this procedure, which may include, but is not limited to, dose reduction technique, automated exposure control, iterative reconstruction, ALARA (As Low As Reasonably Achievable), or Image Gently techniques. Interpreted By: Chapin Rodriguez MD, 07/16/2019 7:17 PM ED Course / Medical Decision Making ED Course as of Jul 17 1318FriJul 16, 20191938 Vital signs are stable, blood pressure elevated on arrival, does endorse pain. O2 saturation is 97% on room air normal and stable. [LM] 2038 Labs noted, lactic acid is normal , blood cultures are pending. Abd/pelvis CT images reviewed. Read by radiologist short segment diverticulitis, no abscess or perforation Report read. Did not speak with radiologist about findings. [LM] 2039 Did speak with patient and his . Iv biotics given per evening dose, plan prior to arrival of lactic acid result.Did speak with patient regarding the results. He states that he had antibiotics but he does not remember what they were when he had similar problems with diverticulitis when he was a patient at [facility] and required admission. I did mention the names of both these medications and he states he is not familiar with them. Plan to take these medications if he does not have any side effects to them being given IV. He may need to return if he has any complications to themedications. We did discuss return precautions and he and are agreeable with the plan. [LM] 214707/16/2019 9:49 PM He is feeling better, is tolerating p.o. fluids. We discussed possibility of reaction to the medications. Return precautions given. [LM] ED Course User Index [LM] TUTU Thomas Medications ondansetron (ZOFRAN) injection 4 mg (4 mg Intravenous Given 07/16/191844) morphine injection 4 mg (4 mg Intravenous Given 07/16/191855) iopamidol (ISOVUE-370) 76 % injection 100 mL (100 mLs Intravenous Given 07/16/191912) morphine injection 4 mg (4 mg Intravenous Given 07/16/191955) metroNIDAZOLE (FLAGYL) IVPB 500 mg (0 mg Intravenous Infusion Stop Time 07/16/192100) levofloxacin (LEVAQUIN) IVPB 500 mg (0 mg Intravenous Infusion Stop Time 07/16/192209) sodium chloride 0.9% bolus infusion SOLN 1,000 mL (0 mLs Intravenous Infusion Stop Time 07/16/192100) HYDROmorphone (DILAUDID) injection 1 mg (1 mg Intravenous Given 07/16/192110) Clinical Impression Diverticulitis large intestine w/o perforation or abscess w/o bleeding (Primary) Discharge Medication List as of 07/16/2019 9:52 PM START taking these medications Details hydrocodone-acetaminophen (NORCO) 5-325 MG tablet Take 1 tablet by mouth every 6 (six) hours as needed. Indications: Acute Pain < 7 Day Supply, Starting Fri07/16/2019, Print Class: Print levofloxacin (LEVAQUIN) 500 MG tablet Take 1 tablet (500 mg total) by mouth daily for 10 days., Starting Fri07/16/2019, Until Fri07/26/2019, Print Class: Print metroNIDAZOLE 500 MG tablet Take 1 tablet (500 mg total) by mouth 3 (three) times daily for 10 days., Starting Fri07/16/2019, Until Fri07/26/2019, Print Class: Print Medications ondansetron (ZOFRAN) injection 4 mg (4 mg Intravenous Given 07/16/191844) morphine injection 4 mg (4 mg Intravenous Given 07/16/191855) iopamidol (ISOVUE-370) 76 % injection 100 mL (100 mLs Intravenous Given 07/16/191912) morphine injection 4 mg (4 mg Intravenous Given 07/16/191955) metroNIDAZOLE (FLAGYL) IVPB 500 mg (0 mg Intravenous Infusion Stop Time 07/16/192100) levofloxacin (LEVAQUIN) IVPB 500 mg (0 mg Intravenous Infusion Stop Time 07/16/192209) sodium chloride 0.9% bolus infusion SOLN 1,000 mL (0 mLs Intravenous Infusion Stop Time 07/16/192100) HYDROmorphone (DILAUDID) injection 1 mg (1 mg Intravenous Given 07/16/192110) Discharge Medication List as of 07/16/2019 9:52 PM START taking these medications Details hydrocodone-acetaminophen (NORCO) 5-325 MG tablet Take 1 tablet by mouth every 6 (six) hours as needed. Indications: Acute Pain < 7 Day Supply, Starting Fri07/16/2019, Print Class: Print levofloxacin (LEVAQUIN) 500 MG tablet Take 1 tablet (500 mg total) by mouth daily for 10 days., Starting Fri07/16/2019, Until Fri07/26/2019, Print Class: Print metroNIDAZOLE 500 MG tablet Take 1 tablet (500 mg total) by mouth 3 (three) times daily for 10 days., Starting Fri07/16/2019, Until Fri07/26/2019, Print Class: Print 07/17/2019 1:18 PM Did attempt to reach patient via phone regarding response to meds as he reported 'problems with meds for diverticulitis in the past. But had no specifics . ' Unable to reach. Disposition: Discharge Follow-Up: Farshad Martin MD [address] [place] [address] DR GALVAN [address] [place] [id number] As needed/ or your own PCP TUTU THOMAS 07/17/2019 TUTU Thomas 07/17/19 1319 Cosigned by Reyes Luis MD at 07/22/2019 8:03 PM STRUCTURAL ANALYST CTURAL ANALYST CTURAL ANALYST * DIXIE Wing - 07/16/2019 6:03 PM CST [place], [place] EMERGENCY DEPARTMENT ENCOUNTER Medical Screening Examination 07/16/19 6:03 PM Chief Complaint : Abdominal Pain HPI : Suzie Osorio is a 39-year-old male who presents due to diffuse abdominal pain. Notes no vomiting or diarrhea but reports a decreased appetite overall. Able to tolerate p.o. fluids. History ofdiverticulitis but cannot recall if this feels the same. Vital Signs: Filed Vitals: 07/16/19 1753 BP: (!) 149/98 Pulse: 104 Resp: 20 Temp: 97.4 ??F (36.3 ??C) TempSrc: Temporal SpO2: 97% Weight: (!) 145.7 kg (321 lb 3.4 oz) Height: 6' 2.5 (1.892 m) Physical exam: A brief physical exam was completed to facilitate/expedite patient care. Plan: Necessary labs/imaging/medications ordered to initiate pt care. DIXIE Wing 07/16/19 1803 Cosigned by Idris Morris DO at 07/16/2019 6:56 PM STRUCTURAL ANALYST CTURAL ANALYST CTURAL ANALYST * Rosy John RN - 07/16/2019 5:55 PM CST Patient ambulatory to triage with c/o generalized abdominal pain. Patient stated that pain started yesterday. Patient denies n/v/d. Patient stated that he has a history of diverticulitis. .ROSY JOHN RN CTURAL ANALYST documented in this encounter Plan of Treatment Upcoming Encounters Date Type Department Care Team (Late st Contact Info) Description 05/27/2024 1:40 PM STRUCTURAL ANALYST Office Visit [facility] Medical [facility] [place] [address] [place] [address] Ryann Renner NP [address] [place] [address] 06/15/2024 1:00 PM STRUCTURAL ANALYST Office Visit [facility] [place] [address] [place] [address] Betty Galvin MD [address] [facility] [address] [place] [address] 11/30/2024 9:40 AM CDT Office Visit [facility] Medical [facility] Mult[facility]pec[facility]ty [facility] - [facility] [address] [place] [address] Nilo Dasilva, [address] [place] [address] documented as of this encounter Procedures Procedure Name Priority Date/Time Associated Diagnosis Comments LACTIC ACID TIMED 07/16/2019 7:56 PM STRUCTURAL ANALYST CULTURE, BACTERIA, BLOOD STAT 07/16/2019 7:56 PM STRUCTURAL ANALYST CULTURE, BACTERIA, BLOOD STAT 07/16/2019 7:[address] ABD+PEL W CON STAT 07/16/2019 7:13 PM STRUCTURAL ANALYST COMPREHENSIVE METABOLIC PANEL STAT 07/16/2019 6:11 PM STRUCTURAL ANALYST CBC W/DIFF AUTOMATED STAT 07/16/2019 6:11 PM STRUCTURAL ANALYST LIPASE STAT 07/16/2019 6:11 PM STRUCTURAL ANALYST documented in this encounter Results * CULTURE, BACTERIA, BLOOD (07/16/2019 7:56 PM STRUCTURAL ANALYST) SPEC DESCRIPTION BLOOD 07/16/2019 7:42 PM STRUCTURAL ANALYST [facility] SPECIAL REQUESTS NO SPECIAL REQUEST 07/16/2019 7:42 PM STRUCTURAL ANALYST [facility] CULTURE RESULT NO GROWTH 5 DAYS 07/21/2019 11:00 AM STRUCTURAL ANALYST [facility] BLOOD SPECIMEN OBTAINED FOR BLOOD CULTURE / Unknown 07/16/2019 7:56 PM STRUCTURAL ANALYST 07/16/2019 8:08 PM STRUCTURAL ANALYST Nataliia Frausto [facility] - GENERAL ORDERA BLES Final Result [facility] [address] [place] [address], [place] [phone] * CULTURE, BACTERIA, BLOOD (07/16/2019 7:56 PM STRUCTURAL ANALYST) SPEC DESCRIPTION BLOOD 07/16/2019 7:42 PM STRUCTURAL ANALYST [facility] SPECIAL REQUESTS NO SPECIAL REQUEST 07/16/2019 7:42 PM STRUCTURAL ANALYST [facility] CULTURE RESULT NO GROWTH 5 DAYS 07/21/2019 11:00 AM STRUCTURAL ANALYST [facility] BLOOD SPECIMEN OBTAINED FOR BLOOD CULTURE / Unknown 07/16/2019 7:56 PM STRUCTURAL ANALYST 07/16/2019 8:08 PM STRUCTURAL ANALYST Nataliia Frausto NP MICROBIOLOGY - GENERAL ORDERA BLES Final Result Performing Organization Address City/[facility]/ZIP Co de Phone Number [facility] [address] [place] [address], [place] [phone] * LACTIC ACID (07/16/2019 7:56 PM STRUCTURAL ANALYST) LACTIC ACID VENOUS 0.7 0.4 - 2.0 MMOL/L 07/16/2019 8:33 PM STRUCTURAL ANALYST [facility] 07/16/2019 7:56 PM STRUCTURAL ANALYST Nataliia Frausto [facility] Final Result [facility] [address] [place] [address], [place] [phone] * CT ABD+PEL W IV CON ONLY (07/16/2019 7:13 PM STRUCTURAL ANALYST) Anatomical Region Laterality Modality Abdomen Computed Tomogra phy 07/16/2019 7:17 PM STRUCTURAL ANALYST Impressions 07/16/2019 7:30 PM STRUCTURAL ANALYST IMPRESSION: 1. ??Gastroesophageal reflux or vomiting. 2. ??Abnormal findings in the descending colon and adjacent fat most compatible with a short length of acute diverticulitis. A dose lowering technique was used for this procedure, which may include, but is not limited to, dose reduction technique, automated exposure control, iterative reconstruction, ALARA (As Low As Reasonably Achievable), or Image Gently techniques. Interpreted By: Chapin Rodriguez MD, 07/16/2019 7:17 PM Narrative 07/16/2019 7:30 PM STRUCTURAL ANALYST EXAM: CT ABD+PEL W CON DATE: 07/16/2019 COMPARISON: None INDICATION: Diffuse abdominal pain. TECHNIQUE: Postcontrast imaging with 100 cc intravenous Isovue-370. FINDINGS: The lung bases are clear. ??Small amount of gastroesophageal reflux or vomiting evident in the lower esophagus. ??Stomach is poorly distended, but grossly normal. ??Motion artifact in the upper abdomen. ??Normal enhancement of the liver, spleen, adrenal glands, and pancreas. ??Hazy peripancreatic densities are probably artifactual. ??Motion artifact versus some minimal pericholecystic fluid. ??No calcified gallstones. ??No bile duct dilation. ??The spleen is enlarged measuring 8.6 x 14.7 x 13 cm. Normal enhancement of the kidneys. ??Small left renal cyst. ??No urinary tract obstruction. ??Moderate size fat-containing left inguinal hernia. Multiple diverticuli from the splenic flexure distally. ??Short segment of abnormal appearing descending colon. ??This shows decreased lumen size, diffuse inflammation in the adjacent fat, and some free fluid along the posterior aspect of the left anterior pararenal space. ??Findings most likely represent acute diverticulitis. ??No associated bowel obstruction, abscess, or free air. ??Normal appendix. ??Normal small bowel. ??No acute bone findings. Procedure Note Chapin Rodriguez MD - 07/16/2019 EXAM: CT ABD+PEL W CON DATE: 07/16/2019 COMPARISON: None INDICATION: Diffuse abdominal pain. TECHNIQUE: Postcontrast imaging with 100 cc intravenous Isovue-370. FINDINGS: The lung bases are clear. Small amount of gastroesophagealreflux or vomiting evident in the lower esophagus. Stomach is poorlydistended, but grossly normal. Motion artifact in the upper abdomen.Normal enhancement of the liver, spleen, adrenal glands, and pancreas.Hazy peripancreatic densities are probably artifactual. Motion artifactversus some minimal pericholecystic fluid. No calcified gallstones. Nobile duct dilation. The spleen is enlarged measuring 8.6 x 14.7 x 13cm. Normal enhancement of the kidneys. Small left renal cyst. No urinarytract obstruction. Moderate size fat-containing left inguinal hernia. Multiple diverticuli from the splenic flexure distally. Short segment ofabnormal appearing descending colon. This shows decreased lumen size,diffuse inflammation in the adjacent fat, and some free fluid along theposterior aspect of the left anterior pararenal space. Findings mostlikely represent acute diverticulitis. No associated bowel obstruction,abscess, or free air. Normal appendix. Normal small bowel. No acutebone findings. IMPRESSION: 1. Gastroesophageal reflux or vomiting. 2. Abnormal findings in the descending colon and adjacent fat mostcompatible with a short length of acute diverticulitis. A dose lowering technique was used for this procedure, which may include,but is not limited to, dose reduction technique, automated exposurecontrol, iterative reconstruction, ALARA (As Low As ReasonablyAchievable), or Image Gently techniques. Interpreted By: Chapin Rodriguez MD, 07/16/2019 7:17 PM us T[address]ia COLIN CT Final Resul t * (ABNORMAL) LIPASE (07/16/2019 6:11 PM STRUCTURAL ANALYST) LIPASE 64(L) 73 - 393 UNITS/L 07/16/2019 6:51 PM STRUCTURAL ANALYST [facility] 07/16/2019 6:11 PM STRUCTURAL ANALYST us [facility] Final Resul t [facility] [address] [place] [address], * (ABNORMAL) COMPREHENSIVE METABOLIC PANEL (07/16/2019 6:11 PM STRUCTURAL ANALYST) [facility] GLUCOSE 101(H) 70 - 99 MG/DL 07/16/2019 6:51 PM [facility] BUN 11 7 - 18 MG/DL 07/16/2019 6:51 PM [facility] CREATININE S/P/B 1.20 0.7 - 1.3 MG/DL 07/16/2019 6:51 PM [facility] SODIUM S/P/B 140 136 - 145 MMOL/L 07/16/2019 6:51 PM [facility] POTASSIUM S/P/B 3.4(L) 3.5 - 5.1 MMOL/L 07/16/2019 6:51 PM [facility] CHLORIDE S/P/B 106 100 - 108 MMOL/L 07/16/2019 6:51 PM [facility] CO2 27.6 21 - 32 MMOL/L 07/16/2019 6:51 PM [facility] CALCIUM S/P/B 9.2 8.5 - 10.1 MG/DL 07/16/2019 6:51 PM [facility] BILIRUBIN TOTAL S/P/B 0.8 0.2 - 1.2 MG/DL 07/16/2019 6:51 PM [facility] TOTAL PROTEIN S/P/B 7.6 6.4 - 8.2 G/DL 07/16/2019 6:51 PM [facility] ALBUMIN S/P/B 3.6 3.4 - 5.0 G/DL 07/16/2019 6:51 PM [facility] AST 20 15 - 37 U/L 07/16/2019 6:51 PM [facility] ALT 48 16 - 60 U/L 07/16/2019 6:51 PM [facility] ALKALINE PHOSPHATASE S/P/B 84 50 - 136 U/L 07/16/2019 6:51 PM [facility] ANION GAP 6.4 5 - 15 MMOL/L 07/16/2019 6:51 PM [facility] BUN CREATININE RATIO 9.2 6 - 26 07/16/2019 6:51 PM [facility] A/G RATIO 0.9(L) 1.0 - 2.0 RATIO 07/16/2019 6:51 PM [facility] EGFR NON-AFR. AMER. 77(L) >90 ML/MIN/1.7 3 M2 07/16/2019 6:51 PM [facility] EGFR AFR. AMER. 89(L) >90 ML/MIN/1.7 3 M2 07/16/2019 6:51 PM [facility] Comment: NOTE: eGFR is not calculated for patients <18 years of age. This is an estimated GFR (CKD EPI) and should not be used for calculating drug doses. 07/16/2019 6:11 PM STRUCTURAL ANALYST [facility] Final Resul t [facility] [address] [place] [address], * (ABNORMAL) CBC W/DIFF AUTOMATED (07/16/2019 6:11 PM STRUCTURAL ANALYST) WBC 13.7(H) 4.5 - 11.0 x10'3/uL 07/16/2019 6:32 PM [facility] RBC 5.60 4.70 - 6.10 x10'6/uL 07/16/2019 6:32 PM [facility] HGB 14.6 14.0 - 18.0 G/DL 07/16/2019 6:32 PM [facility] HCT 45.1 43.0 - 54.0 % 07/16/2019 6:32 PM [facility] MCV 80.5 80.0 - 94.0 FL 07/16/2019 6:32 PM [facility] MCH 26.1(L) 27.0 - 31.0 PG 07/16/2019 6:32 PM [facility] MCHC 32.4 32.0 - 36.0 G/DL 07/16/2019 6:32 PM [facility] RDW 14.4 11.5 - 14.5 % 07/16/2019 6:32 PM [facility] PLT 212 130 - 400 x10'3/uL 07/16/2019 6:32 PM [facility] MPV 11.7 9.3 - 12.2 FL 07/16/2019 6:32 PM [facility] DIFFERENTIAL TYPE AUTOMATED DIFFERENTIAL 07/16/2019 6:32 PM [facility] NEUTROPHILS % 78.3 % 07/16/2019 6:32 PM [facility] LYMPHOCYTES % 14.6 % 07/16/2019 6:32 PM [facility] MONOCYTES % 5.8 % 07/16/2019 6:32 PM [facility] EOSINOPHILS 0.8 % 07/16/2019 6:32 PM [facility] BASOPHILS 0.1 % 07/16/2019 6:32 PM [facility] IMMATURE GRANS % 0.4 % 07/16/19 20 6:32 PM STRUCTURAL ANALYST [facility] ABS. NEUTROPHILS TOTAL 10.75(H) 1.80 - 7.70 x10'3/uL 07/16/2019 6:32 PM STRUCTURAL ANALYST [facility] ABS. LYMPHOCYTES 2.00 1.00 - 4.80 x10'3/uL 07/16/2019 6:32 PM STRUCTURAL ANALYST [facility] ABS. MONOCYTES 0.80 0.30 - 0.82 x10'3/uL 07/16/2019 6:32 PM STRUCTURAL ANALYST [facility] ABS. EOSINOPHILS 0.11 0.04 - 0.54 x10'3/uL 07/16/2019 6:32 PM STRUCTURAL ANALYST [facility] ABS. BASOPHILS 0.02 0.01 - 0.08 x10'3/uL 07/16/2019 6:32 PM STRUCTURAL ANALYST [facility] ABS. IMMATURE GRANULOCYTES 0.05 0.00 - 0.49 x10'3/uL 07/16/2019 6:32 PM STRUCTURAL ANALYST [facility] 07/16/2019 6:11 PM STRUCTURAL ANALYST [facility] Final Resul t [facility] [address] [place] [address], documented in this encounter Visit Diagnoses Diagnosis Diverticulitis large intestine w/o perforation or abscess w/o bleeding- Primary Diverticulitis of colon (without mention of hemorrhage) documented in this encounter Administered Medications Inactive Administered Medications - up to 3 most recent administrations Medication Order MAR Action Action Date Dose Rate Site HYDROmorphone (DILAUDID) injection 1 mg 1 mg, Intravenous, Once, 1 dose, On Fri07/16/19 at 2115, Administer slowly over at least 2-3 minutes. Given 07/16/2019 9:11 PM STRUCTURAL ANALYST 1 mg iopamidol (ISOVUE-370) 76 % injection 100 mL 100 mL, Intravenous, IMG once as needed, Contrast, 1 dose, Starting on Fri07/16/19 at 1913, Until Fri07/16/19 at 1913 Given 07/16/2019 7:13 PM STRUCTURAL ANALYST 100 mLs Left Arm levofloxacin (LEVAQUIN) IVPB 500 mg 500 mg, Intravenous, at 100 mL/hr, Once, 1 dose, On Fri07/16/19 at 1945 New Bag 07/16/2019 7:59 PM STRUCTURAL ANALYST 500 mg 100 mL/hr metroNIDAZOLE (FLAGYL) IVPB 500 mg 500 mg, Intravenous, at 100 mL/hr, Once, 1 dose, On Fri07/16/19 at 1945 New Bag 07/16/2019 7:58 PM STRUCTURAL ANALYST 500 mg 100 mL/hr morphine injection 4 mg 4 mg, Intravenous, Once, 1 dose, On Fri07/16/19 at 1815 Given 07/16/2019 6:56 PM STRUCTURAL ANALYST 4 mg morphine injection 4 mg 4 mg, Intravenous, Once, 1 dose, On Fri07/16/19 at 1930 Given 07/16/2019 7:56 PM STRUCTURAL ANALYST 4 mg ondansetron (ZOFRAN) injection 4 mg 4 mg, Intravenous, Once, 1 dose, On Fri07/16/19 at 1815, IV push over 2-5 minutes. Given 07/16/2019 6:45 PM STRUCTURAL ANALYST 4 mg sodium chloride 0.9% bolus infusion SOLN 1,000 mL 1,000 mL, Intravenous, Administer over 15 Minutes, Once, 1 dose, On Fri07/16/19 at 1945 New Bag 07/16/2019 7:59 PM STRUCTURAL ANALYST 1,000 mLs documented in this encounter Active and Recently Administered Medications Times are shown in STRUCTURAL ANALYST. Scheduled Medication Order 07/14/2019 07/15/2019 07/16/2019 HYDROmorphone (DILAUDID) injection 1 mg (COMPLETED) 1 mg, Intravenous, Once, 1 dose, On Fri07/16/19 at 211, Administer slowly over at least 2-3 minutes. 2110 (Given - Provid er: Ant Mustafa RN) levofloxacin (LEVAQUIN) IVPB 500 mg (COMPLETED) 500 mg, Intravenous, at 100 mL/hr, Once, 1 dose, On Fri07/16/19 at 1945 1958 (New Bag - Prov ider: Ant Mustafa RN)2209 (Infusion Stop Time - Provider: Ant Mustafa, RN) metroNIDAZOLE (FLAGYL) IVPB 500 mg (COMPLETED) 500 mg, Intravenous, at 100 mL/hr, Once, 1 dose, On Fri07/16/19 at 1944 1957 (New Bag - Prov ider: Ant Mustafa RN)2100 (Infusion Stop Time - Provider: Ant Mustafa, RN) morphine injection 4 mg (COMPLETED) 4 mg, Intravenous, Once, 1 dose, On Fri07/16/19 at 181 185 (Given - Provid er: Suzie De Oliveira RN) morphine injection 4 mg (COMPLETED) 4 mg, Intravenous, Once, 1 dose, On Fri07/16/19 at 1931955 (Given - Provid er: Ant Mustafa RN) ondansetron (ZOFRAN) injection 4 mg (COMPLETED) 4 mg, Intravenous, Once, 1 dose, On Fri07/16/19 at 1814, IV push over 2-5 minutes. 1844 (Given - Provid er: Marilou Torres RN) sodium chloride 0.9% bolus infusion SOLN 1,000 mL (COMPLETED) 1,000 mL, Intravenous, Administer over 15 Minutes, Once, 1 dose, On Fri07/16/19 at 1944 1958 (New Bag - Prov ider: Ant Mustafa RN)2100 (Infusion Stop Time - Provider: Ant Mustafa RN) PRN Medication Order 07/14/2019 07/15/2019 07/16/2019 iopamidol (ISOVUE-370) 76 % injection 100 mL (COMPLETED) 100 mL, Intravenous, IMG once as needed, Contrast, 1 dose, Starting on Fri07/16/19 at 1913, Until Fri07/16/19 at 1912 191 (Given - Provid er: Beata England RTR) documented in this encounter Care Teams Sawyer Helper Relationship Specialty Start Date End Date None, Provider, PCP - General 07/16/19 02/09/24 documented as of this encounter
--- OUTSIDE RECORDS SUMMARY | 2024-05-21 21:10 | XMS_ITS | Encounter Summary ---
Author Organization [facility] Address [address] [place] [address]. [place] [address] [place] [address] Care Team Providers Care Brattice Builder Name Role Phone Betty Galvin MD Primary Care Provider Encounter Details Date Type Department Care Team (Latest Contact Info) Description 04/12/2024 Travel Social History Tobacco Use Types Packs/Day [...] on file Legal Sex Male 5:38 PM INVESTIGATIVE AGENT Gender Identity Not on file Sexual Orientation Not on file documented as of this encounter Plan of Treatment Upcoming Encounters Date Type Department Care Team (Late st Contact Info) Description 05/27/2024 1:40 PM INVESTIGATIVE AGENT Office Visit [facility] - [place] [address] [place] [address] Ryann Renner, ALIZA [address] [place] [address] 06/15/2024 1:00 PM INVESTIGATIVE AGENT Office Visit [facility] - [place] [address] [facility] [address] [place] [address] Betty Galvin MD [address] [facility] [address] [place] [address] 11/30/2024 9:40 AM CDT Office Visit [facility] - [facility] [address] [place] [address] Nilo Dasilva DO [address] [facility] [address] [place] [address] documented as of this encounter Visit Diagnoses Not on filedocumented in this encounter Additional Health Concerns Assessment Noted Time PHQ-9 Depression Total Score: 8 04/12/20 24 2:51 PM INVESTIGATIVE AGENT documented as of this encounter Care Teams Brattice Builder Relationship Specialty Start Date End Date Betty Galvin MD [address] [facility] [address] [place] [address] PCP - General INTERNAL MEDICINE 02/10/24 documented as of this encounter
--- OUTSIDE RECORDS SUMMARY | 2024-05-21 21:10 | XMS_ITS | Encounter Summary ---
Author Organization [facility] Address [address] [place] [address]. 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 Mult[facility]pec[facility] Care - [address] [place] [address] Ryann Renner NP [address] [facility] [address] [place] [address] 06/15/2024 1:00 PM CLIENT SERVICE REPRESENTATIVE Office Visit [facility] Multispecialty Care - [address] [place] [address] Betty Galvin MD [address] [facility] [place] [address] 11/30/2024 9:40 AM CDT [facility] [address] [facility] [place] [address] Nilo Dasilva DO [address] [facility] [address] [place] [address] documented as of this encounter Procedures Procedure Name Priority Date/Time Associated Diagnosis Comments SLEEP STUDY GENERIC (SCAN ORDER) 06/12/2015 documented in this encounter Results * SLEEP STUDY GENERIC (SCAN ORDER) (06/12/2015) 06/12/2015 us Doc Med Group Scanned SCANNING Final Resu lt documented in this encounter Visit Diagnoses Not on filedocumented in this encounter Care Teams Explosive Expert Relationship Specialty Start Date End Date None, Provider, PCP - General 07/16/19 02/09/24 Betty Galvin MD [address] [facility] [address] [place] [address] PCP - General INTERNAL MEDICINE 02/10/24 documented as of this encounter
--- OUTSIDE RECORDS SUMMARY | 2024-05-21 21:10 | XMS_ITS | Encounter Summary ---
Author Organization [facility] Address [address] [place] [address]. [place] [address] [place] [address] Care Team Providers Care Maintenance Welder Name Role Phone Betty Galvin MD Primary Care Provider [phone] Reason for Visit * Reason Comments Allied Health Visit Pt is here for labs and Tdap vaccine Encounter Details Date Type Department Care Team (Latest Contact Info) Description 02/12/2024 9:00 AM CDT Allied Health/Nurse Visit [facility] - [place] [address] [address] [place] [address] Betty Galvin MD [address] [place] [address] [address] [place], [place] [id number] Allied Health Visit (Pt is here for labs and Tdap vaccine) Social History Tobacco Use Types Packs/Day Years [...] on file 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 Gender Identity Not on file Sexual Orientation Not on file documented as of this encounter Progress Notes * Jina Ge MA - 02/12/2024 9:00 AM CDT Pt is here for labs and Tdap vaccine documented in this encounter Plan of Treatment Upcoming Encounters Date Type Department Care Team (Late st Contact Info) Description 05/27/2024 1:40 PM AIRPLANE CABIN ATTENDANT [facility] [address] [place] [address] [place] [address] [place] [address] [address] [place] [address] 06/15/2024 1:00 PM AIRPLANE CABIN ATTENDANT [facility] - [address] [place] [address] [place] [address] [place] [address] [address] [place] [address] 11/30/2024 9:40 AM CDT Office Visit [facility] Care - [facility] [address] [facility] [place] [id number] Nilo Dasilva DO [address] [facility] [address] [place] [address] documented as of this encounter Procedures Procedure Name Priority Date/Time Associated Diagnosis Comments TSH W/REFLEX Routine 02/12/2024 8:51 AM CDT Annual physical exam Establishing care with new doctor, encounter for General medical exam Screening for hypothyroidism HEMOGLOBIN, GLYCOSYLATED Routine 02/12/2024 8:51 AM CDT Annual physical exam Establishing care with new doctor, encounter for General medical exam Screening for diabetes mellitus COMPREHENSIVE METABOLIC PANEL Routine 02/12/2024 8:51 AM CDT Annual physical exam Establishing care with new doctor, encounter for General medical exam LIPID PANEL Routine 02/12/2024 8:51 AM CDT Annual physical exam Establishing care with new doctor, encounter for General medical exam Screening for hyperlipidemia HEPATITIS C ANTIBODY Routine 02/12/2024 8:51 AM CDT Annual physical exam Establishing care with new doctor, encounter for General medical exam Encounter for hepatitis C screening test for low risk patient CBC W/DIFF AUTOMATED Routine 02/12/2024 8:51 AM CDT Annual physical exam Establishing care with new doctor, encounter for General medical exam VENIPUNC ARM DRAW Routine 02/12/2024 8:4 1 AM CDT Annual physical exam documented in this encounter Results * HEPATITIS C ANTIBODY (02/12/2024 8:51 AM CDT) Pathologist [facility] HEPATITIS C AB NON-REACTI VE NON-REACT SHANELL 02/13/2024 7:12 PM CDT [facility] Comment: ANTIBODIES TO HCV NOT DETECTED. DOES NOT EXCLUDE THE POSSIBILITY OF EXPOSURE TO HCV. 02/12/2024 8:51 AM CDT Betty Galvin MD LABORATORY Final Result [facility] [address] [place] [address], [id number] * HEMOGLOBIN, GLYCOSYLATED (02/12/2024 8:51 AM CDT) HGB A1C 5.2 4.5 - 6.2 % 02/12/2024 3:10 PM CDT [facility] ESTIMATED AVG GLUCOSE 103 74 - 106 MG/DL 02/12/2024 3:10 PM CDT [facility] 02/12/2024 8:51 AM CDT us Betty Galvin MD LABORATORY Final Result Performing Organization Address City/[facility]/ZIP Co de Phone Number [facility] [address] [place] [address], * TSH W/REFLEX (02/12/2024 8:51 AM CDT) TSH 1.188 0.358 - 3.740 uIU/ML 02/12/2024 3:04 PM CDT [facility] 02/12/2024 8:51 AM CDT us Betty Galvin MD LABORATORY Final Result Performing Organization Address City/[facility]/ZIP Co de Phone Number [facility] [id number] [place] [address], * LIPID PANEL (02/12/2024 8:51 AM CDT) CHOLESTEROL 152 <200 MG/DL 02/12/2024 3:04 PM CDT [facility] TRIGLYCERIDES 50 <150 MG/DL 02/12/2024 3:04 PM CDT [facility] HDL 46 >40 MG/DL 02/12/2024 3:04 PM CDT [facility] LDL-C 96 <100 MG/DL 02/12/2024 3:04 PM CDT [facility] VLDL CALCULATION 10 5 - 28 MG/DL 02/12/2024 3:04 PM CDT [facility] CHOL/HDL RATIO 3.3 0.0 - 4.0 02/12/2024 3:04 PM CDT [facility] LDL/HDL 2.1 0.41 - 2.13 02/12/2024 3:04 PM [facility] NON HDL CHOLESTEROL 106 <140 MG/DL 02/12/2024 3:04 PM CDT [facility] 02/12/2024 8:51 AM CDT Betty Galvin MD LABORATORY Final Result [facility] STEVE, [address] [place] [address], * (ABNORMAL) COMPREHENSIVE METABOLIC PANEL (02/12/2024 8:51 AM CDT) SODIUM S/P/B 142 136 - 145 MMOL/L 02/12/2024 3:04 PM CDT [facility] POTASSIUM S/P/B 4.0 3.5 - 5.1 MMOL/L 02/12/2024 3:04 PM CDT [facility] CHLORIDE S/P/B 105 98 - 107 MMOL/L 02/12/2024 3:04 PM CDT [facility] CO2 30.4 21 - 32 MMOL/L 02/12/2024 3:04 PM T [facility] GLUCOSE 101(H) 70 - 99 MG/DL 02/12/2024 3:04 PM CDT [facility] BUN 10 7 - 18 MG/DL 02/12/2024 3:04 PM CDT [facility] CREATININE S/P/B 1.16 0.70 - 1.30 MG/DL 02/12/2024 3:04 PM T [facility] CALCIUM S/P/B 9.4 8.4 - 10.5 MG/DL 02/12/2024 3:04 PM CDT [facility] BILIRUBIN TOTAL S/P/B 0.5 0.2 - 1.0 MG/DL 02/12/2024 3:04 PM T [facility] ALKALINE PHOSPHATASE S/P/B 69 45 - 115 U/L 02/12/2024 3:04 PM [facility] AST 17 15 - 37 U/L 02/12/2024 3:04 PM T [facility] ALT 35 16 - 63 U/L 02/12/2024 3:04 PM [facility] TOTAL PROTEIN S/P/B 6.8 6.4 - 8.2 G/DL 02/12/2024 3:04 PM [facility] ALBUMIN S/P/B 3.8 3.4 - 5.0 G/DL 02/12/2024 3:04 PM [facility] ANION GAP 6.6 5 - 15 MMOL/L 02/12/2024 3:04 PM [facility] Comment:REFERENCE RANGE NOT ESTABLISHED OSMOLALITY (CALC) 293 MOSM/KG 024 3:04 PM T [facility] Comment:REFERENCE RANGE NOT ESTABLISHED GFR ESTIMATE 81(L) >90 ML/MIN/1. 73 M2 02/12/2024 3:04 PM [facility] GFR NOTES GFR REFERENCE S: 02/12/2024 3:04 PM [facility] Comment: THE ESTIMATED GFR IS CALCULATED USING THE 2020 CKD-EPI EQUATION. THE FOLLOWING CATEGORIES FOR GRADING RENAL FUNCTION ARE RECOMMENDED BY THE INTERNATIONAL SOCIETY OF NEPHROLOGY (KDIGO 2012 CLINICAL PRACTICE GUIDELINE). G1,NORMAL OR HIGH: >89 ml/min/1.73 m2 G2,MILDLY DECREASED: 60-89 ml/min/1.73 m2 G3A,MILDLY TO MODERATELY DECREASED: 45-59 ml/min/1.73 m2 G3B,MODERATELY TO SEVERELY DECREASED: 30-44 ml/min/1.73 m2 G4,SEVERELY DECREASED: 15-29 ml/min/1.73 m2 G5,KIDNEY FAILURE: <15 ml/min/1.73 m2 02/12/2024 8:51 AM CDT Betty Galvin MD LABORATORY Final Result -[facility] [address] [facility] [place] [address], [place] [phone] * (ABNORMAL) CBC W/DIFF AUTOMATED (02/12/2024 8:51 AM CDT) Pathologist [facility] WBC 6.11 4.00 - 10.80 x10'3/uL 02/12/2024 2:29 PM CDT [facility] RBC 5.45 4.50 - 6.10 x10'6/uL 02/12/2024 2:29 PM CDT [facility] HGB 14.2 13.0 - 18.0 G/DL 02/12/2024 2:29 PM CDT [facility] HCT 45.0 37.0 - 52.0 % 02/12/2024 2:29 PM CDT [facility] MCV 82.6 78.0 - 100.0 FL 02/12/2024 2:29 PM CDT [facility] MCH 26.1(L) 27.0 - 31.0 PG 02/12/2024 2:29 PM CDT [facility] MCHC 31.6(L) 33.0 - 36.0 G/DL 02/12/2024 2:29 PM CDT [facility] RDW 14.0 11.5 - 14.5 % 02/12/2024 2:29 PM CDT [facility] PLT 167 150 - 350 x10'3/uL 02/12/2024 2:29 PM CDT [facility] MPV 12.6(H) 7.4 - 10.4 FL 02/12/2024 2:29 PM CDT [facility] DIFFERENTIAL TYPE AUTOMATED DIFFERENTIAL 02/12/2024 2:29 PM CDT [facility] NEUTROPHILS % 61.8 % 02/12/2024 2:29 PM CDT [facility] LYMPHOCYTES % 29.0 % 02/12/2024 2:29 PM CDT [facility] MONOCYTES % 5.4 % 02/12/2024 2:29 PM CDT [facility] EOSINOPHILS % 3.4 % 02/12/2024 2:29 PM CDT [facility] BASOPHILS % 0.2 % 02/12/2024 2:29 PM CDT [facility] IMMATURE GRANS % 0.2 % 02/12/2024 2:29 PM CDT [facility] ABS. NEUTROPHILS 3.78 1.60 - 8.30 x10'3/uL 02/12/2024 2:29 PM CDT [facility] ABS. LYMPHOCYTES 1.77 0.80 - 4.70 x10'3/uL 02/12/2024 2:29 PM CDT [facility] ABS. MONOCYTES 0.33 0.00 - 1.50 x10'3/uL 02/12/2024 2:29 PM CDT [facility] ABS. EOSINOPHILS 0.21 0.00 - 0.40 x10'3/uL 02/12/2024 2:29 PM CDT [facility] ABS. BASOPHILS 0.01 0.00 - 0.20 x10'3/uL 02/12/2024 2:29 PM CDT [facility] ABS. IMMATURE GRANULOCYTES 0.01 0.00 - 0.03 x10'3/uL 02/12/2024 2:29 PM CDT [facility] 02/12/2024 8:51 AM CDT us Betty Galvin MD LABORATORY Final Result [facility] [address] [place] [address], documented in this encounter Visit Diagnoses Diagnosis Need for swzumdtldy-ctjlzxt-bqzunmmve (Tdap) vaccine- Primary Need for prophylactic vaccination with combined mqzimesjme-bsfjprs-rcjuzxtbw (DTP) vaccine Annual physical exam Routine general medical examination at a health care facility Establishing care with new doctor, encounter for Other reasons for seeking consultation General medical exam Unspecified general medical examination Screening for hyperlipidemia Screening for lipoid disorders Screening for hypothyroidism Screening for thyroid disorder Screening for diabetes mellitus Encounter for hepatitis C screening test for low risk patient documented in this encounter Additional Health Concerns Assessment Noted Time PHQ-9 Depression Total Score: 7 02/10/20 24 3:34 PM CDT documented as of this encounter Care Teams Maintenance Welder Relationship Specialty Start Date End Date Betty Galvin MD [address] [address] PCP - General INTERNAL MEDICINE 02/10/24 documented as of this encounter
--- OUTSIDE RECORDS SUMMARY | 2024-05-21 21:10 | XMS_ITS | Encounter Summary ---
Author Organization [facility] Address [address] [place] [address]. 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 [place] [address] Ryann Renner, ALIZA [address] [place] [address] 06/15/2024 1:00 PM PRE[employer]INARY SCHOOL PSYCHOLOGIST Office Visit [facility] - [place] [address] [address] [place] [address] Betty Galvin MD [address] [facility] [address] [place] [address] 11/30/2024 9:40 AM CDT Office Visit [facility] - [facility] [address] [place] [address] Nilo Dasilva DO [address] [place] [address] documented as of this encounter Visit Diagnoses Not on filedocumented in this encounter Additional Health Concerns Assessment Noted Time PHQ-9 Depression Total Score: 7 02/10/20 24 3:34 PM CDT documented as of this encounter Care Teams Suction Roller Relationship Specialty Start Date End Date Betty Galvin MD [address] [facility] [address] [place] [address] PCP - General INTERNAL MEDICINE 02/10/24 documented as of this encounter
--- OUTSIDE RECORDS SUMMARY | 2024-05-21 21:10 | XMS_ITS | Encounter Summary ---
Author Organization [facility] Address [address] [place] [address]. [place] [address] [place] [address] Care Team Providers Care Building Construction Superintendent Name Role Phone Betty Galvin MD Primary Care Provider [phone] Reason for Referral * Consultation (Routine) - Authorized Specialty Diagnoses / Procedures Referred By Contact Referred To Contact SLEEP & RESPIRATORY CARE Diagnoses RYAN on CPAP Procedures OFFICE/OUTPATIENT NEW LOW MDM 30-44 MINUTES OFFICE/OUTPT VISIT,NEW,LEVL IV OFFICE/OUTPT VISIT,NEW,LEVL V OFFICE/OUTPT VISIT,EST,LEVL III OFFICE/OUTPT VISIT,EST,LEVL IV OFFICE/OUTPT VISIT,EST,LEVL V Betty Galvin MD [address] [facility] [address] [place] [address] Phone: tel:[phone] fax:[phone] [facility] - [address], [address] [place] [address] Phone: tel: fax: Referral ID Status Reason Start Date Expiration Date Visits Requested Visits Authorized [id number] Authorized Specialty Services 02/10/2024 02/09/2025 99 99 Reason for Visit * Reason Comments Follow Up New pt looking for P CP Hypertension Anxiety Depression Physical Encounter Details Date Type Department Care Team (Latest Contact Info) Description 02/10/2024 2:40 PM CDT [facility] - [address] [address] [address] [place] [address] Betty Galvin MD [address] [facility] [address] [place] [address] Follow Up (New pt looking for PCP); Hypertension; Anxiety; Depression; Physical Social History Tobacco Use Types Packs/Day Years Used Date Smoking Tobacco: Never Smokeless Tobacco: Never Tobacco Cessation:Counseling Given: Yes Comments:Counseled by DR Galvin. 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 Gender Identity Not on file Sexual Orientation Not on file documented as of this encounter Last Filed Vital Signs Vital Sign Reading Time Taken Comments Blood Pressure 123/74 02/10/2024 2:47 PM CDT Pulse 84 02/10/2024 2:47 PM CDT Temperature 35.8 ??C (96.5 ??F) 02/10/2024 2:47 PM CD T Respiratory Rate 16 02/10/2024 2:47 PM CDT Oxygen Saturation 98% 02/10/2024 2:47 PM CDT Inhaled Oxygen Concentration - - Weight 130.8 kg (288 lb 6.4 oz) 02/10/2024 2:47 PM CDT Height 189.2 cm (6' 2.5 ) 02/10/2024 2:47 PM CDT Body Mass Index 36.53 02/10/2024 2:47 PM CDT documented in this encounter Patient Instructions * Patient Instructions* Betty Galvin MD - 02/10/2024 2:40 PM CDT Follow up in April 2024 for your mood medication. Nurse visit for fasting labs. * Attachments The following attachments cannot be sent through Care Everywhere. * Yearly Physical for Adults (Vietnamese) documented in this encounter Progress Notes * Betty Galvin MD - 02/10/2024 2:40 PM CDTSummary: New patient notes Images from the original note were not included. ANNUAL PHYSICAL NOTES Encounter Date: 02/10/2024 Chief Complaint: 43-year-old male presents for Follow Up (New pt looking for PCP), Hypertension, Anxiety, Depression, and Physical HPI The patient is being seen for a health maintenance evaluation. Previously was seeing Dr Min and she and also sees also a chiropractor for his neckand back in [facility] and has been seeing him for the past 2 months. He will be starting physical therapy in a few days. No referral to orthopedics. No imaging doing. He tells me the pain is doing better but still has mild posterior muscular posterior neck pain. Pain is doing better. He is not taking any pain medication. Rates his neck pain as 4/10 with activity with mowing his lawn. He would usually take Tylenol as needed and this helps. Not taking norco Diagnosed with hypertension 2010 and currently on valsartan hctz 320-25 mg tablet and taking one tablet daily. Denies any concerns for shortness of breath, chest tightness with activity, palpitations, ankle swelling, orthopnea, paroxysmal nocturnal or chronic cough. Active at baseline. Currently not following with cardiology. No prior history of stents. No prior history of echocardiogram. His weight was previously was 335 ibs in December 2022 to 288 IBS as of today. He tells me he cut back on meat and cut back on portions on diet. He tells me he is still going through a divorce and reports he is under a lot of stress. He reports his blood sugars were elevated and his cholesterol numbers were also elevated. Reports very strong family history of diabetes and hypertension. Has never been diagnosed with diabetes. RYAN on CPAP Not seeing a pulmonary. Gets supplies from [facility]. Patient with longstanding history of anxiety with depression. Notable is his uncontrolled anxiety. Last prescribed alprazolam 1 mg 3 times daily as needed by previous PCP and last prescription was sent sometime in May 2023. He has been out of medication since that time. After lengthy discussion, patient is agreeable to starting long-term daily prescribed medications to help with his symptomsat this time with close follow-up. He currently does not follow with psychiatry or therapy. No suicidal thoughts or intentions to harm. Currently going through a divorce with . Has a 12-year-old and a 6-year-old. No family history of depression or anxiety. 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 There is no problem list on file for this patient. General Health: good Dental Health: Sees dentist regularly Vision Health: No vision correction Hearing Health: No hearing problems Immunizations Needed: COVID Weight: Obese Body mass index is 36.53 kg/m??. Physical Activity: Acitve lifestyle Prostate Cancer Screening: none Testicular Cancer Screening: None Colorectal Cancer Screening: None Metabolic Screening: Patient needs to be screened today. HCV Screening: done PHQ-9 Screening Score: PHQ-9: 02/10/2024 3:34 PM PHQ2/PHQ 9 DEPRESSION SCREEN QUESTIONAIRE Little interest or pleasure in doing things Not at all Feeling down, depressed, or hopeless Several days Patient Health Questionnaire-2 Score 1 Trouble falling or staying asleep, or sleeping too much Almost all Feeling tired or having little energy Several days Poor appetite or overeating Over half Feeling bad about yourself - or that you are a failure or have let yourself or your family down Notat all Trouble concentrating on things, such as reading the newspaper or watching television Not at all Moving or speaking so slowly that other people could have noticed? Or the opposite - being so fidgety or restless that you have been moving around a lot more than usual. Not at all Thoughts that you would be better off or hurting yourself in some way Not at all Patient Health Questionnaire-9 Score 7 ZANE-7 (Generalized Anxiety Disorder) Screening 02/10/2024 3:34 PM ZANE-7 Feeling nervous, anxious, or on edge 2 Not being able to stop or control worrying 2 Worrying too much about different things 2 Trouble relaxing 1 Being so restless that it is hard to sit still 1 Becoming easily annoyed or irritable 1 Feeling afraid as if something awful might happen 0 ZANE-7 Total Score 9 Smoking Status: History Smoking Status Never Smokeless Tobacco Never Patient does not meet criteria for Low Dose CT screening Sleep Apnea Risk Factors: RYNA on CPAP Review of Systems Constitutional: Negative for chills, diaphoresis, fever, malaise/fatigue and weight loss. HENT: Negative. Eyes: Negative. Respiratory: Negative. Cardiovascular: Negative for chest pain, palpitations, orthopnea, claudication, leg swelling and PND. Gastrointestinal: Negative. Genitourinary: Negative. Musculoskeletal: Negative. Neurological: Negative. Psychiatric/Behavioral: Negative for depression, hallucinations, memory loss, substance abuse and suicidal ideas. The patient is nervous/anxious. The patient does not have insomnia. Past Medical History: Diagnosis Date Diverticulitis Hypertension Past Surgical History: Procedure Laterality Date BACK SURGERY No family history on file. Social History Socioeconomic History Marital status: Spouse name: Not on file Number of children: Not on file Years of education: Not on file Highest education level: Not on file Occupational History Not on file Tobacco Use Smoking status: Never Smokeless tobacco: Never Tobacco comments: Counseled by DR Galvin. Substance and Sexual Activity Alcohol use: Yes Comment: socially Drug use: Never Sexual activity: Not on file Other Topics Concern Not on file Social History Narrative Not on file Social Determinants of Health Financial Resource Strain: Not on file Food Insecurity: Not on file Transportation Needs: Not on file Physical Activity: Not on file Stress: Not on file Social Connections: Not on file Intimate Partner Violence: Not on file Housing Stability: Not on file There is no immunization history for the selected administration types on file for this patient. Current Outpatient Medications Medication Sig Dispense Refill buPROPion (WELLBUTRIN) 75 MG tablet Take 1 tablet (75 mg total) by mouth 2 (two) times daily. 180 tablet 0 busPIRone (BUSPAR) 5 MG tablet Take 1 tablet (5 mg total) by mouth 2 (two) times daily. 60 tablet 1 valsartan-hydroCHLOROthiazide (DIOVAN-HCT) 320-25 MG tablet Take 1 tablet by mouth daily. 90 tablet1 No current facility-administered medications for this visit. No current outpatient medications on file prior to visit. No current facility-administered medications on file prior to visit. Review of patient's allergies indicates: Not on File Objective: Filed Vitals: 02/10/24 1447 BP: 123/74 Pulse: 84 Resp: 16 Temp: 96.5 ??F (35.8 ??C) TempSrc: Temporal SpO2: 98% Weight: 130.8 kg (288 lb 6.4 oz) Height: 1.892 m (6' 2.5 ) Physical Exam Vitals and nursing note reviewed. Constitutional: General: He is not in acute distress. Appearance: He is not ill-appearing, toxic-appearing or diaphoretic. HENT: Head: Normocephalic and atraumatic. Right Ear: Tympanic membrane, ear canal and external ear normal. There is no impacted cerumen. Left Ear: Tympanic membrane, ear canal and external ear normal. There is no impacted cerumen. Nose: Nose normal. No congestion. Mouth/Throat: Mouth: Mucous membranes are moist. Pharynx: Oropharynx is clear. No oropharyngeal exudate. Eyes: General: No scleral icterus. Right eye: No discharge. Left eye: No discharge. Conjunctiva/sclera: Conjunctivae normal. Pupils: Pupils are equal, round, and reactive to light. Neck: Thyroid: No thyromegaly. Vascular: No carotid bruit or JVD. Trachea: No tracheal deviation. Cardiovascular: Rate and Rhythm: Normal rate and regular rhythm. Pulses: Normal pulses. Heart sounds: Normal heart sounds. No murmur heard. Pulmonary: Effort: Pulmonary effort is normal. No respiratory distress. Breath sounds: Normal breath sounds. No stridor. No wheezing or rales. Chest: Chest wall: No tenderness. Abdominal: General: Bowel sounds are normal. There is no distension. Palpations: Abdomen is soft. There is no mass. Tenderness: There is no abdominal tenderness. There is no right CVA tenderness, left CVA tenderness, guarding or rebound. Hernia: No hernia is present. Musculoskeletal: General: No swelling, tenderness, deformity or signs of injury. Normal range of motion. Cervical back: Normal range of motion and neck supple. No rigidity or tenderness. Right lower leg: No edema. Left lower leg: No edema. Lymphadenopathy: Cervical: No cervical adenopathy. Skin: Coloration: Skin is not jaundiced or pale. Findings: No bruising, erythema, lesion or rash. Neurological: Mental Status: He is alert and oriented to person, place, and time. Cranial Nerves: No cranial nerve deficit. Sensory: No sensory deficit. Motor: No weakness or abnormal muscle tone. Coordination: Coordination normal. Gait: Gait is intact. Gait normal. Deep Tendon Reflexes: Reflexes are normal and symmetric. Reflexes normal. Psychiatric: Mood and Affect: Affect normal. Behavior: Behavior normal. Thought Content: Thought content normal. Cognition and Memory: Memory normal. Judgment: Judgment normal. Assessment & Plan: Suzie was seen today for follow up, hypertension, anxiety and depression. Diagnoses and all orders for this visit: Annual physical exam -Reviewed with the patient BMI, blood pressure, diet, exercise, and encouraged healthy lifestyle choices. Screened for substance use, risk factors for STIs, diet and exercise habits, and symptoms of depression. Emphasized normal blood pressure of < 140/90 and lipid and diabetes screening for allmen > 35 or for men 20-34 with risk factors. Recommended US screening for AAA for all men 65-75 who have ever smoked. Recommended prostate screening. Colon screening starting at 45. Recommended preventive immunizations according to age. - URINALYSIS AUTO DIP - HEPATITIS C ANTIBODY; Future - HEMOGLOBIN, GLYCOSYLATED; Future - TSH W/REFLEX; Future - LIPID PANEL; Future - COMPREHENSIVE METABOLIC PANEL; Future - CBC W/DIFF AUTOMATED; Future - VENIPUNC ARM DRAW Establishing care with new doctor, encounter for -Patient past medical, surgical, family history and social history updated. Allergies, immunizations and medications updated. Also did discuss healthy lifestyle including exercising, dietary changes and safe sexual practices as well as safe habits common to patient age group including wearing seat belt when transporting in a vehicle and limiting alcohol and avoiding smoking/second hand smoking. Patient will set up [employer]. Patient will fax over any remaining outside records that would be relevant to care provided. - URINALYSIS AUTO DIP - HEPATITIS C ANTIBODY; Future - HEMOGLOBIN, GLYCOSYLATED; Future - TSH W/REFLEX; Future - LIPID PANEL; Future - COMPREHENSIVE METABOLIC PANEL; Future - CBC W/DIFF AUTOMATED; Future - VENIPUNC ARM DRAW General medical exam - URINALYSIS AUTO DIP - HEPATITIS C ANTIBODY; Future - HEMOGLOBIN, GLYCOSYLATED; Future - TSH W/REFLEX; Future - LIPID PANEL; Future - COMPREHENSIVE METABOLIC PANEL; Future - CBC W/DIFF AUTOMATED; Future - VENIPUNC ARM DRAW Screening for diabetes mellitus - HEMOGLOBIN, GLYCOSYLATED; Future Screening for hyperlipidemia - LIPID PANEL; Future Screening for hypothyroidism - TSH W/REFLEX; Future Encounter for hepatitis C screening test for low risk patient - HEPATITIS C ANTIBODY; Future Class 2 severe obesity due to excess calories with serious comorbidity and body mass index (BMI) of36.0 to 36.9 in adult ([facility]/HCC HHS/HCC) --Pt has elevated weight with BMI Body mass index is 36.53 kg/m??., and will need to work hard on reducing carbohydrates and total calories. -You may use the free smart phone apps such as Marbles: The [employer] Store to help track calories and try to reduce by 15% every 4 weeks. -Patient will work on reducing total portion sizes to try to reduce the size of their stomach. -Exercising about 30 minutes every day with cardio work outs. -Avoid regular soda, juices and alcohol. -Recommended limiting GPS foods (Grains, Potatoes, Sugars) as much as possible. Eating food that itis not highly processed and that they can recognize. Eating when they are hungry and not by a time schedule. -Lets aim to have them loose about 1 pound per week and 5 pounds per month. RYAN on CPAP - Ambulatory referral to Pulmonology ([facility]) - Currently already on CPAP machine. Weight loss encouraged. Primary hypertension -Controlled - Patient currently controlled on current treatment for hypertension. Will continue. Continued to discuss weight loss, adequate cardiovascular fitness. DASH diet was discussed as well as decrease in sodium intake. BP goal of < 140/90 expressed. - Lifestyle modification including dietary changes to include less saturated fats, lean meat, more vegetables and exercise at least 30 min every day -Continue with valsartan-hydroCHLOROthiazide (DIOVAN-HCT) 320-25 MG tablet; Take 1 tablet by mouth daily. Anxiety - Uncontrolled - I personally reviewed PHQ-9 and ZANE-7 scores with patient today and explained the meaning of patient's scores to patient. Patient is currently uncontrolled. I counseled for about 3 minutes on strategies including stress management, sleep hygiene, balanced diet, regular physical activity includingaerobic exercise, weight reduction, activity pacing, maintenance of overall health lifestyle, medication compliance and the need for close follow up. Comorbidities including depression, anxiety currently being managed. Active nonpharmacological therapies including supervised and graded exercise program as well as cognitive behavioral interventions discussed as well. Based on patient scores today,I have discussed with patient the plan as outlined below. - start buPROPion (WELLBUTRIN) 75 MG tablet; Take 1 tablet (75 mg total) by mouth 2 (two) times daily. - start busPIRone (BUSPAR) 5 MG tablet; Take 1 tablet (5 mg total) by mouth 2 (two) times daily. Need for pzzdprmyli-jmioidn-cipjevqwn (Tdap) vaccine - Cancel: [13308] Adacel (Tdap) Mild episode of recurrent major depressive disorder (CMS/HCC) - Uncontrolled - I personally reviewed PHQ-9 and ZANE-7 scores with patient today and explained the meaning of patient's scores to patient. Patient is currently uncontrolled. I counseled for about 3 minutes on strategies including stress management, sleep hygiene, balanced diet, regular physical activity includingaerobic exercise, weight reduction, activity pacing, maintenance of overall health lifestyle, medication compliance and the need for close follow up. Comorbidities including depression, anxiety currently being managed. Active nonpharmacological therapies including supervised and graded exercise program as well as cognitive behavioral interventions discussed as well. Based on patient scores today,I have discussed with patient the plan as outlined below. - Start buPROPion (WELLBUTRIN) 75 MG tablet; Take 1 tablet (75 mg total) by mouth 2 (two) times daily. I personally spent a total of 65 minutes on the day of the encounter. This includes bkni-bq-dtcl and syp-smre-fk-face time I provided on the day of the encounter & excludes time spent performing separately reportable services. PARVEZON: This dictation was at least in part performed using [employer] and there may be some inherent flaws in this hotel general manager due to the nature of this program. MD Betty PEPPER MD Internal Medicine [facility]. documented in this encounter Plan of Treatment Upcoming Encounters Date Type Department Care Team (Late st Contact Info) Description 05/27/2024 1:40 PM ROOM MANAGER Office Visit [facility] - [place] [address] [facility] [place] [address] Ryann Renner NP [address] [place] [address] 06/15/2024 1:00 PM ROOM MANAGER [facility] - [place] [address] [facility] [place] [address] Betty Galvin MD [address] [facility] [address] [place] [address] 11/30/2024 9:40 AM CDT [facility] - [facility] [address] [place] [address] Nilo Dasilva DO [address] [place] [address] Scheduled Referrals Name Type Priority Associated Diagnoses Orde r Schedule Ambulatory referral to Pulmonology ([facility]) Referral Routine RYAN on CPAP Ordered: 02/10/2024 documented as of this encounter Procedures Procedure Name Priority Date/Time Associated Diagnosis Comments VENIPUNC ARM DRAW Routine 02/10/2024 3:1 4 PM CDT Annual physical exam Establishing care with new doctor, encounter for General medical exam URINALYSIS AUTO DIP Routine 02/10/2024 Annual physical exam Establishing care with new doctor, encounter for General medical exam documented in this encounter Results * (ABNORMAL) CBC W/DIFF AUTOMATED (02/12/2024 8:51 AM CDT) WBC 6.11 4.00 - 10.80 x10'3/uL 02/12/2024 2:29 PM CDT [facility] RBC 5.45 4.50 - 6.10 x10'6/uL 02/12/2024 2:29 PM CDT [facility] HGB 14.2 13.0 - 18.0 G/DL 02/12/2024 2:29 PM CDT [facility] HCT 45.0 37.0 - 52.0 % 02/12/2024 2:29 PM CDT [facility] MCV 82.6 78.0 - 100.0 FL 02/12/2024 2:29 PM CDT [facility] MCH 26.1(L) 27.0 - 31.0 PG 02/12/2024 2:29 PM CDT [facility] MCHC 31.6(L) 33.0 - 36.0 G/DL 02/12/2024 2:29 PM CDT [facility] RDW 14.0 11.5 - 14.5 % 02/12/2024 2:29 PM CDT [facility] PLT 167 150 - 350 x10'3/uL 02/12/2024 2:29 PM CDT [facility] MPV 12.6(H) 7.4 - 10.4 FL 02/12/2024 2:29 PM CDT [facility] DIFFERENTIAL TYPE AUTOMATED DIFFERENTIAL 02/12/2024 2:29 PM CDT [facility] NEUTROPHILS % 61.8 % 02/12/2024 2:29 PM CDT [facility] LYMPHOCYTES % 29.0 % 02/12/2024 2:29 PM CDT [facility] MONOCYTES % 5.4 % 02/12/2024 2:29 PM CDT [facility] EOSINOPHILS % 3.4 % 02/12/2024 2:29 PM CDT [facility] BASOPHILS % 0.2 % 02/12/2024 2:29 PM CDT [facility] IMMATURE GRANS % 0.2 % 02/12/2024 2:29 PM CDT [facility] ABS. NEUTROPHILS 3.78 1.60 - 8.30 x10'3/uL 02/12/2024 2:29 PM CDT [facility] ABS. LYMPHOCYTES 1.77 0.80 - 4.70 x10'3/uL 02/12/2024 2:29 PM CDT [facility] ABS. MONOCYTES 0.33 0.00 - 1.50 x10'3/uL 02/12/2024 2:29 PM CDT [facility] ABS. EOSINOPHILS 0.21 0.00 - 0.40 x10'3/uL 02/12/2024 2:29 PM CDT [facility] ABS. BASOPHILS 0.01 0.00 - 0.20 x10'3/uL 02/12/2024 2:29 PM CDT [facility] ABS. IMMATURE GRANULOCYTES 0.01 0.00 - 0.03 x10'3/uL 02/12/2024 2:29 PM CDT [facility] 02/12/2024 8:51 AM CDT Betty Galvin MD LABORATORY Final Result [facility] [address] [place] [address], * (ABNORMAL) COMPREHENSIVE METABOLIC PANEL (02/12/2024 8:51 AM CDT) Pathologist [facility] SODIUM S/P/B 142 136 - 145 MMOL/L 02/12/2024 3:04 PM CDT [facility] POTASSIUM S/P/B 4.0 3.5 - 5.1 MMOL/L 02/12/2024 3:04 PM CDT [facility] CHLORIDE S/P/B 105 98 - 107 MMOL/L 02/12/2024 3:04 PM CDT [facility] CO2 30.4 21 - 32 MMOL/L 02/12/2024 3:04 PM [facility] GLUCOSE 101(H) 70 - 99 MG/DL 02/12/2024 3:04 PM [facility] BUN 10 7 - 18 MG/DL 02/12/2024 3:04 PM [facility] CREATININE S/P/B 1.16 0.70 - 1.30 MG/DL 02/12/2024 3:04 PM [facility] CALCIUM S/P/B 9.4 8.4 - 10.5 MG/DL 02/12/2024 3:04 PM [facility] BILIRUBIN TOTAL S/P/B 0.5 0.2 - 1.0 MG/DL 02/12/2024 3:04 PM [facility] ALKALINE PHOSPHATASE S/P/B 69 45 - 115 U/L 02/12/2024 3:04 PM [facility] AST 17 15 - 37 U/L 02/12/2024 3:04 PM [facility] ALT 35 16 - 63 U/L 02/12/2024 3:04 PM [facility] TOTAL PROTEIN S/P/B 6.8 6.4 - 8.2 G/DL 02/12/2024 3:04 PM [facility] ALBUMIN S/P/B 3.8 3.4 - 5.0 G/DL 02/12/2024 3:04 PM T [facility] ANION GAP 6.6 5 - 15 MMOL/L 02/12/2024 3:04 PM [facility] Comment:REFERENCE RANGE NOT ESTABLISHED OSMOLALITY (CALC) 293 MOSM/KG 024 3:04 PM T [facility] Comment:REFERENCE RANGE NOT ESTABLISHED GFR ESTIMATE 81(L) >90 ML/MIN/1. 73 M2 02/12/2024 3:04 PM CDT [facility] GFR NOTES GFR REFERENCE S: 02/12/2024 3:04 PM CDT [facility] [place] Comment: THE ESTIMATED GFR IS CALCULATED USING [...] CDT Betty Galvin MD LABORATORY Final Result [facility] [address] [place] [address], * LIPID PANEL (02/12/2024 8:51 AM CDT) CHOLESTEROL 152 <200 MG/DL 02/12/2024 3:04 PM CDT [facility] TRIGLYCERIDES 50 <150 MG/DL 02/12/2024 3:04 PM CDT [facility] HDL 46 >40 MG/DL 02/12/2024 3:04 PM CDT [facility] LDL-C 96 <100 MG/DL 02/12/2024 3:04 PM CDT [facility] VLDL CALCULATION 10 5 - 28 MG/DL 02/12/2024 3:04 PM CDT [facility] CHOL/HDL RATIO 3.3 0.0 - 4.0 02/12/2024 3:04 PM CDT [facility] LDL/HDL 2.1 0.41 - 2.13 02/12/2024 3:04 PM CDT [facility] NON HDL CHOLESTEROL 106 <140 MG/DL 02/12/2024 3:04 PM CDT [facility] 02/12/2024 8:51 AM CDT us Betty Galvin MD LABORATORY Final Result Performing Organization Address City/[facility] Co de Phone Number [address] [address], [place] [phone] * TSH W/REFLEX (02/12/2024 8:51 AM CDT) TSH 1.188 0.358 - 3.740 uIU/ML 02/12/2024 3:04 PM CDT [facility] 02/12/2024 8:51 AM CDT us Betty Galvin MD LABORATORY Final Result Performing Organization Address [facility] Co de Phone Number [address] [address], [place] [phone] * HEMOGLOBIN, GLYCOSYLATED (02/12/2024 8:51 AM CDT) HGB A1C 5.2 4.5 - 6.2 % 02/12/2024 3:10 PM CDT [facility] ESTIMATED AVG GLUCOSE 103 74 - 106 MG/DL 02/12/2024 3:10 PM CDT [facility] 02/12/2024 8:51 AM CDT us Betty Galvin MD LABORATORY Final Result Performing Organization Address City/[facility] Co de Phone Number [address] [address], * HEPATITIS C ANTIBODY (02/12/2024 8:51 AM CDT) Pathologist [facility] HEPATITIS C AB NON-REACTI VE NON-REACT SHANELL 02/13/2024 7:12 PM CDT [facility] Comment: ANTIBODIES TO HCV NOT DETECTED. DOES NOT EXCLUDE THE POSSIBILITY OF EXPOSURE TO HCV. 02/12/2024 8:51 AM CDT us Betty Galvin MD LABORATORY Final Result [facility] [address] [place] [address], [place] [phone] [id number] * (ABNORMAL) URINALYSIS AUTO DIP (02/10/2024) Pathologist [facility] COLOR (U) YELLOW YELLOW MG[address], [place] TRANSPARENCY CLEAR CLEAR MG-[address], [place] GLUCOSE (U) NEGATIVE NEGATIVE MG/DL MG-[address], [place] BILIRUBIN (U) NEGATIVE NEGATIVE MG-[address], [place] KETONES MG/DL (U) 5 (TRACE)(A) NEGATIVE MG/DL MG-[address], [place] SPECIFIC GRAVITY (U) 1.025 1.001 - 1.035 MG-[address], [place] BLOOD (U) NEGATIVE NEGATIVE MG-[address], [place] U PH 6.5 5.0 - 9.0 MG-[address], [place] PROTEIN (U) NEGATIVE NEGATIVE mg/dL MG-[address], [place] UROBILINOGEN 0.2 0.2 - 1.0 EU/dL = mg/dL MG-[address], [place] NITRITES NEGATIVE NEGATIVE MG/DL MG-[address], [place] LEUKOCYTES (U) NEGATIVE NEGATIVE MG-[address], [place] URINE SPECIMEN OBTAINED BY CLEAN CATCH PROCEDURE / Unknown 02/10/2024 us Betty Galvin MD URINE ORDERABLES Final Result -[address], [place] [address] [place] [address] [address] [place] [address], documented in this encounter Visit Diagnoses Diagnosis Annual physical exam- Primary Routine general medical examination at a health care facility Establishing care with new doctor, encounter for Other reasons for seeking consultation General medical exam Unspecified general medical examination Screening for diabetes mellitus Screening for hyperlipidemia Screening for lipoid disorders Screening for hypothyroidism Screening for thyroid disorder Encounter for hepatitis C screening test for low risk patient Class 2 severe obesity due to excess calories with serious comorbidity and body mass index (BMI) of 36.0 to 36.9 in adult (CMS/HCC HHS/HCC) RYAN on CPAP Obstructive sleep apnea (adult) (pediatric) Primary hypertension Unspecified essential hypertension Anxiety Anxiety state, unspecified Need for ausfxsdags-eszevgv-rikhukrbq (Tdap) vaccine Need for prophylactic vaccination with combined tigdwulfqn-brdsrdw-yxvwazdwn (DTP) vaccine Mild episode of recurrent major depressive disorder (CMS/HCC) documented in this encounter Additional Health Concerns Assessment Noted Time PHQ-9 Depression Total Score: 7 02/10/20 24 3:34 PM CDT documented as of this encounter Care Teams Building Construction Superintendent Relationship Specialty Start Date End Date Betty Galvin MD [address] [facility] [address] [place] [address] PCP - General INTERNAL MEDICINE 02/10/24 documented as of this encounter
--- OUTSIDE RECORDS SUMMARY | 2024-05-21 21:10 | XMS_ITS | Encounter Summary ---
Author Organization [facility] Address [address] [place] [address]. [place] [address] [place] [address] Care Team Providers Care Electrical Parts Reconditioner Name Role Phone Betty Galvin MD Primary Care Provider Reason for Visit * Reason Onset Date Comments Orders 04/07/2024 Encounter Details Date Type Department Care Team (Late st Contact Info) Description 04/07/2024 Telephone [facility] Multispecialty Care - [facility] [address] [place] [id number] Nilo Dasilva DO [address] [place], [place] [id number] Orders Social History Tobacco Use Types Packs/Day Years [...] on file Legal Sex Male 5:38 PM BACTERIOLOGIST FISHERY Gender Identity Not on file Sexual Orientation Not on file documented as of this encounter Progress Notes * Maria Luisa Tomas CRT - 04/08/2024 3:11 PM CST I was able to get sleep studies myself. Order for new CPAP sent to [facility] ERIOLOGIST FISHERY * Maria Luisa Tomas CRT - 04/08/2024 12:03 PM CST Waiting for sleep studies. Request sent again to [facility] at [phone] and [phone] ERIOLOGIST FISHERY * Maria Luisa Tomas CRT - 04/07/2024 11:19 AM CST Waiting on sleep studies to be sent. Requested them from [facility] and [facility] in [place], [place]. Patient would like to go to a different [facility] for new cpap ERIOLOGIST FISHERY * Maria Luisa Tomas CRT - 04/07/2024 11:19 AM CST ----- Message from Dr. Nilo Dasilva sent at 04/07/2024 11:17 AM BACTERIOLOGIST FISHERY ----- -- order new cpap APAP [id number] of cpap. ERIOLOGIST FISHERY documented in this encounter Plan of Treatment Upcoming Encounters Date Type Department Care Team (Late st Contact Info) Description 05/27/2024 1:40 PM BACTERIOLOGIST FISHERY Office Visit [facility] Multispecialty Care - [place] [address] [place] [address] Ryann Renner, TRIM SETTER HELPER [address] [place] [address] 06/15/2024 1:00 PM BACTERIOLOGIST FISHERY Office Visit [facility] Multispecialty Care - [address] [place] [address] Betty Galvin MD [address] [address] 11/30/2024 9:40 AM CDT Office Visit [facility] Multispecialty Care - [facility] [address] [place] [phone] Nilo Dasilva DO [address] [place] [address] documented as of this encounter Visit Diagnoses Not on filedocumented in this encounter Additional Health Concerns Assessment Noted Time PHQ-9 Depression Total Score: 7 02/10/20 24 3:34 PM CDT documented as of this encounter Care Teams Electrical Parts Reconditioner Relationship Specialty Start Date End Date Betty Galvin MD [address] [place] [address] PCP - General INTERNAL MEDICINE 02/10/24 documented as of this encounter
--- OUTSIDE RECORDS SUMMARY | 2024-05-21 21:10 | XMS_ITS | Encounter Summary ---
Author Organization [facility] Address [address] [place] [address]. [place], [place] [address] [place] [address] Care Team Providers Care Bar Catcher Name Role Phone Betty Galvin MD Primary Care Provider [phone] Reason for Referral * Consultation (Urgent) - Authorized Specialty Diagnoses / Procedures Referred By Josue truong Referred To Contact PSYCHOLOGY Diagnoses Mild episode of recurrent major depressive disorder (CMS/HCC) Anxiety Procedures OFFICE/OUTPATIENT NEW LOW MDM 30-44 MINUTES OFFICE/OUTPT VISIT,NEW,LEVL IV OFFICE/OUTPT VISIT,NEW,LEVL V OFFICE/OUTPT VISIT,EST,LEVL III OFFICE/OUTPT VISIT,EST,LEVL IV OFFICE/OUTPT VISIT,EST,LEVL V Betty Galvin MD [address] [facility] [address] [place] [address] Phone: tel: fax: [address] [place] [address] [address] Phone: tel: fax: Referral ID Status Reason Start Date Expiration Date Visits Requested Visits Authorized [id number] Authorized Specialty Services 4 04/12/2025 100 100 UNT EXECUTIVE SALES REPRESENTATIVE Reason for Visit * Reason Comments Follow Up Anxiety Depression Encounter Details Date Type Department Care Team (Latest Contact Info) Description 04/12/2024 1:40 PM ACCOUNT EXECUTIVE SALES REPRESENTATIVE Office Visit [facility] Multispecialty Care - [place] [address] [address] [address] [place] [address] Betty Galvin MD [address] [facility] [address] [place] [address] Follow Up; Anxiety; Depression Social History Tobacco Use Types Packs/Day Years [...] on file Legal Sex Male 5:38 PM ACCOUNT EXECUTIVE SALES REPRESENTATIVE Gender Identity Not on file Sexual Orientation Not on file documented as of this encounter Last Filed Vital Signs Vital Sign Reading Time Taken Comments Blood Pressure 123/73 04/12/2024 1:45 PM ACCOUNT EXECUTIVE SALES REPRESENTATIVE Pulse 79 04/12/2024 1:45 PM ACCOUNT EXECUTIVE SALES REPRESENTATIVE Temperature 36.3 ??C (97.3 ??F) 04/12/2024 1:45 PM CS T Respiratory Rate 16 04/12/2024 1:45 PM ACCOUNT EXECUTIVE SALES REPRESENTATIVE Oxygen Saturation 99% 04/12/2024 1:45 PM ACCOUNT EXECUTIVE SALES REPRESENTATIVE Inhaled Oxygen Concentration - - Weight 130.2 kg (287 lb) 04/12/2024 1:45 PM ACCOUNT EXECUTIVE SALES REPRESENTATIVE Height 189.2 cm (6' 2.5 ) 04/12/2024 1:45 PM ACCOUNT EXECUTIVE SALES REPRESENTATIVE Body Mass Index 36.36 04/12/2024 1:45 PM ACCOUNT EXECUTIVE SALES REPRESENTATIVE documented in this encounter Patient Instructions * Patient Instructions* Betty Galvin MD - 04/12/2024 1:40 PM ACCOUNT EXECUTIVE SALES REPRESENTATIVE Please call to follow up on your therapy. Schedule for a nurse visit for your prevnar 20 vaccine on Friday. Schedule for your next visit in 8 weeks for your mood medication. Please take your medications as directed. UNT EXECUTIVE SALES REPRESENTATIVE UNT EXECUTIVE SALES REPRESENTATIVE * Attachments The following attachments cannot be sent through Care Everywhere. * Stress (Yakut) documented in this encounter Progress Notes * Betty Galvin MD - 04/12/2024 1:40 PM CSTSummary: Follow up notes Images from the original note were not included. Internal Medicine Outpatient Progress Note CC: Follow Up, Anxiety, and Depression HPI: Suzie Osorio is a 43-year-old male who presents for follow up for depression and anxiety. 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 He started on wellbutrin 75 mg twice daily and buspar 5 mg twice daily and tolerating medication well with no side effect. Has noticed slight improvement in his symptoms. Still in the middle of divorce proceedings. PHQ-9: 02/10/2024 3:34 PM 04/12/2024 2:51 PM PHQ2/PHQ 9 DEPRESSION SCREEN QUESTIONAIRE Little interest or pleasure in doing things Not at all Not at all Feeling down, depressed, or hopeless Several days Several days Patient Health Questionnaire-2 Score 1 1 Trouble falling or staying asleep, or sleeping too much Almost all Almost all Feeling tired or having little energy Several days Not at all Poor appetite or overeating Over half Over half Feeling bad about yourself - or that you are a failure or have let yourself or your family down Notat all Over half Trouble concentrating on things, such as reading the newspaper or watching television Not at all Not at all Moving or speaking so slowly that other people could have noticed? Or the opposite - being so fidgety or restless that you have been moving around a lot more than usual. Not at all Not at all Thoughts that you would be better off or hurting yourself in some way Not at all Not at all Patient Health Questionnaire-9 Score 7 8 ZANE-7 (Generalized Anxiety Disorder) Screening 02/10/2024 3:34 PM 04/12/2024 2:51 PM ZANE-7 Feeling nervous, anxious, or on edge 2 1 Not being able to stop or control worrying 2 1 Worrying too much about different things 2 2 Trouble relaxing 1 1 Being so restless that it is hard to sit still 1 0 Becoming easily annoyed or irritable 1 0 Feeling afraid as if something awful might happen 0 1 ZANE-7 Total Score 9 6 Problem List Patient Active Problem List Diagnosis Abnormal EKG Anxiety Atypical chest pain Family history of hypertension Folliculitis keloidalis nuchae High blood pressure Hyperlipidemia Male pattern alopecia Nonalcoholic steatohepatitis (PICKETT) Obesity Palpitations Sleep apnea Past Medical History: Diagnosis Date Diverticulitis Hypertension Sleep apnea Sleep apnea, unspecified Past Surgical History: Procedure Laterality Date BACK SURGERY Family History Problem Relation Name Age of Onset Asthma Mother Social History Tobacco Use Smoking status: Never Smokeless tobacco: Never Vaping Use Vaping status: Never Used Substance Use Topics Alcohol use: Yes Comment: socially Drug use: Never Medications: Outpatient Medications Marked as Taking for the 04/12/24 encounter (Office Visit) with Betty Galvin MD Medication Sig Dispense Refill buPROPion XL (WELLBUTRIN XL) 300 MG 24 hr tablet Take 1 tablet (300 mg total) by mouth every morning. 90 tablet 1 busPIRone (BUSPAR) 10 MG tablet Take 1 tablet (10 mg total) by mouth 3 (three) times daily. 270 tablet 1 hydrOXYzine (ATARAX) 50 MG tablet Take one to two tablets nightly to help with sleep. 90 tablet 1 valsartan-hydroCHLOROthiazide (DIOVAN-HCT) 320-25 MG tablet Take 1 tablet by mouth daily. 90 tablet1 Allergies: Review of patient's allergies indicates: Not on File Review of Systems Constitutional: Negative for chills, diaphoresis, fever, malaise/fatigue and weight loss. HENT: Negative. Eyes: Negative. Respiratory: Negative. Cardiovascular: Negative for chest pain, palpitations, orthopnea, claudication, leg swelling and PND. Gastrointestinal: Negative. Genitourinary: Negative. Musculoskeletal: Negative. Neurological: Negative. Psychiatric/Behavioral: Positive for depression. Negative for hallucinations, memory loss, substance abuse and suicidal ideas. The patient is nervous/anxious. The patient does not have insomnia. Objective: Filed Vitals: 04/12/24 1345 BP: 123/73 Pulse: 79 Resp: 16 Temp: 97.3 ??F (36.3 ??C) TempSrc: Temporal SpO2: 99% Weight: 130.2 kg (287 lb) Height: 1.892 m (6' 2.5 ) Body mass index is 36.36 kg/m??. General alert, cooperative, no distress HEENT EOM's intact. Oral mucosa normal. Nasal septum is midline. Neck Supple, symmetrical, trachea midline, no adenopathy, no thyromegaly, no JVD. Lungs No acute respiratory distress, no accessory muscle use, symmetric motion of the chest wall, lungs are clear to auscultation bilaterally, no wheezes or rales. Heart Regular rate and regular rhythm. S1, S2 normal. No murmurs. No rubs, clicks, or gallops. Abdomen Soft, non-tender, non-distended. Bowel sounds normal. No masses. No hepatomegaly appreciated. Extremities Extremities atraumatic, no cyanosis, 2+ pedal pulses, no edema Skin Skin color, texture, turgor normal. No rashes or lesions appreciated. Neurologic No focal deficits, motor strength is grossly normal and symmetric Psych Normal mood and affect MSK No synovitis, no bony tenderness, no joint effusions Lymph No cervical or supraclavicular adenopathy Assessment and Plan: Encounter Diagnose(s) ICD-10-CM SNOMED CT(R) 1. Mild episode of recurrent major depressive disorder (CMS/HCC) F33.0 RECURRENT MAJOR DEPRESSIVE EPISODES, MILD buPROPion XL (WELLBUTRIN XL) 300 MG 24 hr tablet Ambulatory Referral to Psychology 2. Anxiety F41.9 ANXIETY busPIRone (BUSPAR) 10 MG tablet hydrOXYzine (ATARAX) 50 MG tablet Ambulatory Referral to Psychology 1. Mild episode of recurrent major depressive disorder (CMS/HCC) -Improving but not optimally controlled. Dose of medication adjusted at today's visit. -I personally reviewed PHQ-9 and ZANE-7 scores with patient today and explained the meaning of patient's scores to patient. Patient is currently improving but not optimally controlled. I counseled forabout 3 minutes on strategies including stress management, sleep hygiene, balanced diet, regular physical activity including aerobic exercise, weight reduction, activity pacing, maintenance of overall health lifestyle, medication compliance and the need for close follow up. Comorbidities including depression, anxiety currently being managed. Active nonpharmacological therapies including supervised and graded exercise program as well as cognitive behavioral interventions discussed as well. Basedon patient scores today, I have discussed with patient the plan as outlined below. -Increase to buPROPion XL (WELLBUTRIN XL) 300 MG 24 hr tablet; Take 1 tablet (300 mg total) by mouth every morning. Dispense: 90 tablet; Refill: 1 - Ambulatory Referral to Psychology 2. Anxiety -Improving but not optimally controlled. Dose of medication adjusted at today's visit. -I personally reviewed PHQ-9 and ZANE-7 scores with patient today and explained the meaning of patient's scores to patient. Patient is currently improving but not optimally controlled. I counseled forabout 3 minutes on strategies including stress management, sleep hygiene, balanced diet, regular physical activity including aerobic exercise, weight reduction, activity pacing, maintenance of overall health lifestyle, medication compliance and the need for close follow up. Comorbidities including depression, anxiety currently being managed. Active nonpharmacological therapies including supervised and graded exercise program as well as cognitive behavioral interventions discussed as well. Basedon patient scores today, I have discussed with patient the plan as outlined below. -Increase to busPIRone (BUSPAR) 10 MG tablet; Take 1 tablet (10 mg total) by mouth 3 (three) times daily. Dispense: 270 tablet; Refill: 1 -Add hydrOXYzine (ATARAX) 50 MG tablet; Take one to two tablets nightly to help with sleep. Dispense: 90 tablet; Refill: 1 - Ambulatory Referral to Psychology Counseling given: Yes I personally spent a total of 30 minutes on the day of the encounter. This includes ntdx-ri-opmk and xif-iodu-ui-face time I provided on the day of the encounter & excludes time spent performing separately reportable services. Side effects and less common but more severe adverse effects of recommended medical therapies were explained to the patient. Follow up office visit in 2 months. Requested MyChart or telephone follow up prn if symptoms change, worsen, or persist, or if side effect of treatment is experienced. DRAGON: This dictation was at least in part performed using [employer] and there may be some inherent flaws in this cash register operator due to the nature of this program. Betty Galvin MD Internal Medicine [facility], [facility]. UNT EXECUTIVE SALES REPRESENTATIVE documented in this encounter Plan of Treatment Upcoming Encounters Date Type Department Care Team (Late st Contact Info) Description 05/27/2024 1:40 PM ACCOUNT EXECUTIVE SALES REPRESENTATIVE [facility] [place] [address] [place] [address] Ryann Renner NP [address] [place] [address] [address] [place] [address] 06/15/2024 1:00 PM ACCOUNT EXECUTIVE SALES REPRESENTATIVE Office Visit [facility] [place] [address] [place] [address] Betty Galvin MD [address] [place] [address] [address] [place] [address] 11/30/2024 9:40 AM CDT Office Visit [facility] [address] [place] [phone] Nilo Dasilva DO [address] [facility] [place] [address] Scheduled Referrals Name Type Priority Associated Diagnoses Orde r Schedule Ambulatory Referral to Psychology Referral Routine Mild episode of recurrent major depressive disorder ([facility]) Anxiety Ordered: 04/12/2024 documented as of this encounter Visit Diagnoses Diagnosis Mild episode of recurrent major depressive disorder (CMS/HCC)- Primary Anxiety Anxiety state, unspecified documented in this encounter Additional Health Concerns Assessment Noted Time PHQ-9 Depression Total Score: 8 04/12/20 2:51 PM ACCOUNT EXECUTIVE SALES REPRESENTATIVE documented as of this encounter Care Teams Bar Catcher Relationship Specialty Start Date End Date Betty Galvin MD [address] [address] PCP - General INTERNAL MEDICINE 02/10/24 documented as of this encounter
--- OUTSIDE RECORDS SUMMARY | 2024-05-21 21:10 | XMS_ITS | Encounter Summary ---
Author Organization [facility] Address [address] [place] [address]. [place] [address] [place] [address] Care Team Providers Care School Community Relations Coordinator Name Role Phone None, Provider Primary Care Provider Betty Mccray MD Primary Care Provider [phone] Reason for Visit * Reason Comments Sleep Study (SCAN) Encounter Details Date Type Department Care Team (Late Contact Info) Description 06/20/2015 Scan HEALTH INFO SRVCS Scanned, Doc Med [...] on file Legal Sex Male 5:38 PM PETROLEUM INSPECTOR Gender Identity Not on file Sexual Orientation Not on file documented as of this encounter Plan of Treatment Upcoming Encounters Date Type Department Care Team (Late Contact Info) Description 05/27/2024 1:40 PM PETROLEUM INSPECTOR Office Visit [facility] Multispecialty Care - [address] [place] [address] Ryann Renner NP [address] [facility] [address] [place] [address] 06/15/2024 1:00 PM PETROLEUM INSPECTOR Office Visit [facility] Multispecialty Care - [address] [place] [address] Betty Galvin MD [address] [facility] [address] [place] [address] 11/30/2024 9:40 AM CDT [facility] [address] [place] [address] Nilo Dasilva DO [address] [place] [address] documented as of this encounter Procedures Procedure Name Priority Date/Time Associated Diagnosis Comments SLEEP STUDY GENERIC (SCAN ORDER) 06/20/2015 documented in this encounter Results * SLEEP STUDY GENERIC (SCAN ORDER) (06/20/2015) 06/20/2015 us [facility] Scanned SCANNING Final Resu lt documented in this encounter Visit Diagnoses Not on filedocumented in this encounter Care Teams School Community Relations Coordinator Relationship Specialty Start Date End Date None, Provider, PCP - General 07/16/19 02/09/24 Betty Galvin MD [address] [facility] [address] [place] [address] PCP - General INTERNAL MEDICINE 02/10/24 documented as of this encounter
--- OUTSIDE RECORDS SUMMARY | 2024-05-21 21:10 | XMS_ITS | Encounter Summary ---
Author Organization [facility] Address [address] [place] [address]. [place] [address] [place] [address] Care Team Providers Care Coach Cleaner Name Role Phone Unavailable Primary Care Provider Unavailabl e Encounter Details Date Type Department Care Team (Late st Contact Info) Description 11/17/2002 Abstract [facility] Diagnostic Imaging [address] [place] [address] Martín Blanton MD [address] [place] [address] Social History Tobacco Use Types Packs/Day Years Used Date Smoking Tobacco: Never Assessed Sex and Gender Information Value Date Recorded Sex Assigned at Not on file Legal Sex Male 5:38 PM RADIAL DRILL PRESS OPERATOR Gender Identity Not on file Sexual Orientation Not on file documented as of this encounter Plan of Treatment Upcoming Encounters Date Type Department Care Team (Late st Contact Info) Description 05/27/2024 1:40 PM RADIAL DRILL PRESS OPERATOR Office Visit [facility] Medical [facility] Mult[facility] - [place] [address] [place] [address] Ryann Renner NP [address] [place] [address] 06/15/2024 1:00 PM RADIAL DRILL PRESS OPERATOR Office Visit [facility] Medical [facility]pecialty Care - [place] [address] [place] [address] Betty Galvin MD [address] [facility] [address] [place] [address] 11/30/2024 9:40 AM CDT Office Visit [facility] Medical Group Mult[facility]pecialty Care - [facility] [address] [place] [address] Nilo Dasilva DO [address] [facility] [address] [place] [address] documented as of this encounter Visit Diagnoses Not on filedocumented in this encounter
--- OUTSIDE RECORDS SUMMARY | 2024-05-21 21:10 | XMS_ITS | Encounter Summary ---
Author Organization [facility] Address [address] [place] [address]. [place] [address] [place] [address] Care Team Providers Care Presto Log Operator Name Role Phone None, Provider Primary Care Provider Isaura ledesma Encounter Details Date Type Department Care Team (Latest Contact Info) Description 07/16/2019 Travel Social History Tobacco Use Types Packs/Day Years Used Date Smoking Tobacco: Never Smokeless Tobacco: Never Alcohol Use Standard Drinks/Week Comments Yes 0 (1 standard drink = 0.6 oz pur e alcohol) socially Sex and Gender Information Value Date Recorded Sex Assigned at Not on file Legal Sex Male 5:38 PM VISITOR INFORMATION ASSISTANT Gender Identity Not on file Sexual Orientation Not on file documented as of this encounter Plan of Treatment Upcoming Encounters Date Type Department Care Team (Late st Contact Info) Description 05/27/2024 1:40 PM VISITOR INFORMATION ASSISTANT Office Visit [facility] Medical Group Multispecialty Care - [address] [place] [address] Ryann Renner NP [address] [facility] [address] [place] [address] 06/15/2024 1:00 PM VISITOR INFORMATION ASSISTANT Office Visit [facility] Medical [facility] Multispecialty Care - [address] [place] [address] Betty Galvin MD [address] [place] [address] [address] [place] [address] 11/30/2024 9:40 AM CDT Office Visit [facility] Medical [facility] Mult[facility]pecialty Care - [facility] [address] [place] [address] Nilo Dasilva DO [address] [facility] [address] [place] [address] documented as of this encounter Visit Diagnoses Not on filedocumented in this encounter Care Teams Presto Log Operator Relationship Specialty Start Date End Date None, Provider, PCP - General 07/16/19 02/09/24 documented as of this encounter
--- OUTSIDE RECORDS SUMMARY | 2024-05-21 21:12 | XMS_ITS | CONTINUITY OF CARE DOCUMENT ---
Author Name jazmineamerica jazmineamerica Address Unknown Organization [facility] Address [address] [place] [address] [address] [place] [address] Phone [phone] Care Team Providers Care Clinical Assoc Name Role Phone Quintin Pierre DO Unavailable Patricia HUFFMAN, Dread Unavailable JUAN HUFFMAN, COLLETTE Unavailable PROBLEMS Condition Status Date Provider Notes Abnormal EKG active Quintin Pierre DO Sleep apnea - waiting to be set up w/CPAP active 07/25 Quintin Pierre DO Palpitations active Quintin Pierre DO Anxiety active Quintin Pierre DO Hyperlipidemia active Quintin Pierre DO Obesity active Quintin Pierre DO HTN active Quintin Pierre DO Chest discomfort, atypical active Quintin marcus DO Family History of Hypertension: active ? Raul Pierre DO ENCOUNTERS Date Type Provider Location Encounter Diag nosis 07/25 - 07/31 In-person encounter Office Visit Quintin Pierre DO [facility] Office Family History of Hypertension:Chest dis comfort, atypicalHTNObesityHyperlipidemiaAnxietyPalpitationsS leep apnea - waiting to be set up w/CPAPAbnormal EKG VITAL SIGNS Date Observation Value Provider blood pressure, diastolic 90 mm[Hg] Birgit hatch [place] blood pressure, systolic 130 mm[Hg] Enedelia wise [place] pulse rate 94 /min Emma Hurt'[place] oxygen saturation, oximetry 99 % Emma LichaArceliaSantana respiratory rate E&M 18 /min Emma [place] Body Mass Index (Ratio) 40.62 kg/m2 Chase MalhotraSantana weight E&M 325 [lb_av] Emma MalhotraSantana height E&M 75 [in_i] Emma LichaArceliaSantana ALLERGIES No Known Drug Allergies HISTORY OF MEDICATION USE Medication Status Instructions Dates Provider Indications Com ments ALPRAZOLAM 1 MG ORAL TABLET active one tab by mouth three times daily as needed Emma Preston LOSARTAN POTASSIUM-HCTZ 100-12.5 MG ORAL TABLET active once daily Emma HurtArceliaSantana SOCIAL HISTORY Date Observation Value Provider social history reviewed E&M revi ewed - no changes required Quintin Pierre DO alcohol use no Quintin Pierre DO drug use no Quintin Pierre DO chewing tobacco use Never Quintin stein DO number of grandchildren Quintin Blancaa LichaArceliaSantana smoking status Never smoker Emma LichaArceliaSantana FAMILY HISTORY Family Member Condition Full Sister Family History of Hy pertension: Mother Family History of Di abetes: Mother Family History of Hy pertension: Father Family History of Co ronary Artery Disease: Father Family History of Hy pertension: Mother Family History Breas t Cancer: INSURANCE PROVIDERS Payer name Policy type / Coverage type [facility] constitution party ID AETNA [facility] Other [id number] TREATMENT PLAN Date Name Performer Cardiology:BP today: 130/90 - followed by Dr Patricia Pierre DO Cardiology:pt to f/u w/getting CPAP. (ordered by another DR) a lso wt loss and exercise encouraged. Quintin Pierre DO Cardiology:flutters lasting secs, no sustained arrhythmia and no syncope Quintin Pierre DO Cardiology:CP on occ asion. Described as a flutter type feeling. Lasting seconds, last one was Friday. S tops him in his tracks b/c of the chest pain and it scares him. Resolves with rest. neg stress test Quintin Pierre DO HISTORY OF PROCEDURES Procedure Date Procedure Name Provider Procedure Notes S tatus EKG Quintin Pierre DO comple kristofer SNOMED-CT: [id number] Current Medications Documented Quintin Pierre DO completed
--- OUTSIDE RECORDS SUMMARY | 2024-05-22 01:07 | XMS_ITS | Encounter Summary ---
Author Organization [facility] Address [address] [place] [address]. [place] [address] [place] [address] Care Team Providers Care Museum Educator Name Role Phone Betty Galvin MD Primary Care Provider [phone] Reason for Visit * Reason Onset Date Comments Orders 04/07/2024 Encounter Details Date Type Department Care Team (Late st Contact Info) Description 04/07/2024 Telephone [facility] Medical Group Multispecialty Care - 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 Order for new CPAP sent to [facility] FERTILITY EXTENSION SPECIALIST * Maria Luisa Tomas CRT - 04/08/2024 12:03 PM CST Waiting for sleep studies. Request sent again to [facility] at [phone] and [phone] FERTILITY EXTENSION SPECIALIST * Maria Luisa Tomas CRT - 04/07/2024 11:19 AM CST Waiting on sleep studies to be sent. Requested them from [facility] and [facility] in [place], [place]. Patient would like to go to a different [facility] for new cpap FERTILITY EXTENSION SPECIALIST * Maria Luisa Tomas CRT - 04/07/2024 11:19 AM CST ----- Message from Dr. Nilo Dasilva sent at 04/07/2024 11:17 AM SOIL FERTILITY EXTENSION SPECIALIST ----- -- order new cpap APAP [id number] of cpap. FERTILITY EXTENSION SPECIALIST documented in this encounter Plan of Treatment Upcoming Encounters Date Type Department Care Team (Late st Contact Info) Description 05/27/2024 1:40 PM SOIL FERTILITY EXTENSION SPECIALIST Office Visit [facility] Medical Group Multispecialty Care - [place] [address] [place] [address] Ryann Renner, FLEET MECHANIC [address] [place] [address] 06/15/2024 1:00 PM SOIL FERTILITY EXTENSION SPECIALIST Office Visit [facility] Multispecialty Care - [address] [place] [address] Betty Galvin MD [address] [address] 11/30/2024 9:40 AM CDT Office Visit [facility] Multispecialty Care - [facility] [address] [facility] [address] [place] [address] Nilo Dasilva DO [address] [facility] [address] [place] [address] documented as of this encounter Visit Diagnoses Not on filedocumented in this encounter Additional Health Concerns Assessment Noted Time PHQ-9 Depression Total Score: 7 02/10/20 24 3:34 PM CDT documented as of this encounter Care Teams Museum Educator Relationship Specialty Start Date End Date Betty Galvin MD [address] [place] [address] PCP - General INTERNAL MEDICINE 02/10/24 documented as of this encounter
--- OUTSIDE RECORDS SUMMARY | 2024-05-22 01:07 | XMS_ITS | Encounter Summary ---
Author Organization [facility] Address [address] [place] [address]. [place] [address] [place] [address] Care Team Providers Care Gallery Or Museum Guide Name Role Phone Betty Galvin MD Primary Care Provider [phone] Encounter Details Date Type Department Care Team [...] on file Legal Sex Male 5:38 PM CRUMB PACKER Gender Identity Not on file Sexual Orientation Not on file documented as of this encounter Plan of Treatment Upcoming Encounters Date Type Department Care Team (Late st Contact Info) Description 05/27/2024 1:40 PM CRUMB PACKER Office Visit [facility] Medical Group Multispecialty Care - [place] [address] [place] [address] Ryann Renner, ALIZA [address] [place] [address] 06/15/2024 1:00 PM CRUMB PACKER Office Visit [facility]ty Care - [place] [address] [facility] [address] [place] [address] Betty Galvin MD [address] [facility] [address] [place] [address] 11/30/2024 9:40 AM CDT Office Visit [facility] Medical [facility] Mult[facility]pecialty Care - [facility] [address] [facility] [address] [place] [address] Nilo Dasilva DO [address] [facility] [address] [place] [address] documented as of this encounter Visit Diagnoses Not on filedocumented in this encounter Additional Health Concerns Assessment Noted Time PHQ-9 Depression Total Score: 8 04/12/20 24 2:51 PM CRUMB PACKER documented as of this encounter Care Teams Gallery Or Museum Guide Relationship Specialty Start Date End Date Betty Galvin MD [address] [facility] [address] [place] [address] PCP - General INTERNAL MEDICINE 02/10/24 documented as of this encounter
--- OUTSIDE RECORDS SUMMARY | 2024-05-22 01:07 | XMS_ITS | CONTINUITY OF CARE DOCUMENT ---
Author Name jazmineamerica jazmineamerica Address Unknown Organization [facility] Address [address] [place] [address] [address] [place] [address] Phone [phone] Care Team Providers Care Systems Security Analyst Name Role Phone Quintin Pierre DO Unavailable Patricia HUFFMAN, Dread Unavailable [phone] JUAN HUFFMAN, COLLETTE Unavailable [phone] PROBLEMS Condition Status Date Provider Notes Abnormal [...] In-person encounter Office Visit Quintin Pierre DO [facility] Office Family History of Hypertension:Chest dis comfort, [...] Payer name Policy type / Coverage type [facility] alliance party ID AETNA [facility] Other [id number] TREATMENT PLAN Date Name Performer Cardiology:BP today: [...] EKG Quintin Pierre DO comple kristofer SNOMED-CT: [id number] Current Medications Documented Quintin Pierre DO completed
--- OUTSIDE RECORDS SUMMARY | 2024-05-22 01:07 | XMS_ITS | Encounter Summary ---
Author Organization [facility] Address [address] [place] [address]. [place] [address] [place] [address] Care Team Providers Care Emergency Vehicle Driver Name Role Phone Betty Galvin MD Primary Care Provider [phone] Encounter Details Date Type Department Care Team (Latest Contact Info) Description 02/12/2024 - 02/12/2024 11:59 PM T Hospital 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 Gender Identity Not on file Sexual Orientation [...] st Contact Info) Description 05/27/2024 1:40 PM WHEEL WORKER [facility] [address] [address] [place] [address] [place] [address] [place] [address] [address] [place] [address] 06/15/2024 1:00 PM WHEEL WORKER [facility] [place] [address] [place] [address] [place] [address] [place] [address] [address] [place] [address] 11/30/2024 9:40 AM CDT [facility] [address] [facility] [facility] [address] [place] [address] Nilo Dasilva DO [address] [facility] [address] [place] [address] documented as of this encounter Visit Diagnoses Not on filedocumented in this encounter Additional Health Concerns Assessment Noted Time PHQ-9 Depression Total Score: 7 02/10/20 24 3:34 PM CDT documented as of this encounter Care Teams Emergency Vehicle Driver Relationship Specialty Start Date End Date Betty Galvin MD [address] [address] PCP - General INTERNAL MEDICINE 02/10/24 documented as of this encounter
--- OUTSIDE RECORDS SUMMARY | 2024-05-22 01:07 | XMS_ITS | Encounter Summary ---
Author Organization [facility] Address [address] [place] [address]. [place] [address] [place] [address] Care Team Providers Care Full Stack Python Developer Name Role Phone Betty Galvin MD Primary Care Provider [phone] Encounter Details Date Type Department Care Team [...] on file Legal Sex Male 5:38 PM SUPERVISOR AREA Gender Identity Not on file Sexual Orientation Not on file documented as of this encounter Plan of Treatment Upcoming Encounters Date Type Department Care Team (Late st Contact Info) Description 05/27/2024 1:40 PM SUPERVISOR AREA Office Visit [facility] Medical Group Multispecialty Care - [place] [address] [place] [address] Ryann Renner, ALIZA [address] [place] [address] 06/15/2024 1:00 PM SUPERVISOR AREA Office Visit [facility] Medical [facility] Mult[facility]pecialty Care - [place] [address] [facility] [address] [place] [address] Betty Galvin MD [address] [facility] [address] [place] [address] 11/30/2024 9:40 AM CDT Office Visit [facility] Mult[facility] - [facility] [address] [facility] [address] [place] [address] Nilo Dasilva DO [address] [facility] [address] [place] [address] documented as of this encounter Visit Diagnoses Not on filedocumented in this encounter Additional Health Concerns Assessment Noted Time PHQ-9 Depression Total Score: 7 02/10/20 24 3:34 PM CDT documented as of this encounter Care Teams Full Stack Python Developer Relationship Specialty Start Date End Date Betty Galvin MD [address] [facility] [address] [place] [address] PCP - General INTERNAL MEDICINE 02/10/24 documented as of this encounter
--- OUTSIDE RECORDS SUMMARY | 2024-05-22 01:07 | XMS_ITS | Encounter Summary ---
Author Organization [facility] Address [address] [place] [address]. [place] [address] [place] [address] Care Team Providers Care Market Risk Specialist Name Role Phone Betty Galvin MD Primary Care Provider [phone] Reason for Visit * Reason Comments Obstructive [...] IV OFFICE/OUTPT VISIT,EST,LEVL V Betty Galvin MD [address] [facility] [address] [place] [address] Phone: tel:[phone] fax:[phone] [facility] Medical Group Multispecialty Care - [facility] [address] [facility] [place] [address] Phone: tel: fax: Referral ID Status Reason Start Date Expiration Date Visits Requested Visits Authorized [id number] Authorized Specialty Services 02/10/2024 02/09/2025 99 99 Encounter Details Date Type Department Care Team (Latest Contact Info) Description 04/07/2024 11:00 AM COMPUTER GRAPHIC ARTIST Office Visit [facility] Medical Group Multispecialty Care - [facility] [address] [facility] [address] [place] [address] Nilo Dasilva DO [address] [facility] [address] [place] [address] Obstructive Sleep Apnea (On cpap; would like [...] on file Legal Sex Male 5:38 PM COMPUTER GRAPHIC ARTIST Gender Identity Not on file Sexual Orientation Not on file documented as of this encounter Last Filed Vital Signs Vital Sign Reading Time Taken Comments Blood Pressure 124/75 04/07/2024 11:01 AM COMPUTER GRAPHIC ARTIST Pulse 93 04/07/2024 11:01 AM COMPUTER GRAPHIC ARTIST Temperature - - Respiratory Rate 16 04/07/2024 11:01 AM COMPUTER GRAPHIC ARTIST Oxygen Saturation 96% 04/07/2024 11:01 AM COMPUTER GRAPHIC ARTIST Inhaled Oxygen Concentration - - Weight 127 kg (280 lb) 04/07/2024 11:01 AM COMPUTER GRAPHIC ARTIST Height 189.2 cm (6' 2.5 ) 04/07/2024 11:01 AM CS T Body Mass Index 35.47 04/07/2024 11:01 AM COMPUTER GRAPHIC ARTIST documented in this encounter Patient Instructions * Patient Instructions* Nilo Dasilva DO - 04/07/2024 11:00 AM COMPUTER GRAPHIC ARTIST Images from the original note were not included. PATIENT INSTRUCTIONS Please review the following items discussed in your visit today: we sent a prescription for this to a medical hospital sales/CPAP company, they should contact you to set [...] questions or concerns please send us a [employer] message for the most timely response However, you can always call us at ([phone]) during office hours 4. It was my [...] use a QR scanner nichelle through the [employer]). c.If you don't have a smart phone and want to leave a review for me you can always search Dr. Barnett DO Google review to let us know how we are doing. Sincerely, Dr. Shoaib Dasilva UTER GRAPHIC ARTIST UTER GRAPHIC ARTIST documented in this encounter Progress Notes * Nilo Dasilva DO - 04/07/2024 11:00 AM CST [facility] PULMONARY MEDICINE CLINIC NOTE History of [...] kg/m??. Plan -- order new cpap APAP [id number] of cpap. -- patient encouraged to use CPAP nightly and change mask/straps out every 6 months. -- Will renew CPAP supplies for 1 year. -- recommend weight loss with diet and exercise as able. RTC 3m Dr. Shoaib Dasilva [facility] Pulmonary Medicine UTER GRAPHIC ARTIST documented in this encounter Plan of Treatment Upcoming Encounters Date Type Department Care Team (Late st Contact Info) Description 05/27/2024 1:40 PM COMPUTER GRAPHIC ARTIST [facility] [address] [place] [address] Ryann Renner NP [address] [facility] [address] [place] [address] 06/15/2024 1:00 PM COMPUTER GRAPHIC ARTIST [facility] [place] [address] [facility] [address] [place] [address] [place] [address] [place] [address] [address] [place] [address] 11/30/2024 9:40 AM CDT Office Visit [facility] Medical Group Mult[facility]pecialty Care - [facility] [address] [facility] [address] [place] [place] [address] Nilo Dasilva DO [address] [facility] [address] [place] [address] documented as of this encounter Visit Diagnoses Diagnosis GONZÁLEZ on CPAP- Primary Obstructive sleep apnea (adult) (pediatric) Class 2 severe obesity due to excess calories with serious comorbidity and body mass index (BMI) of 35.0 to 35.9 in adult ([facility]) documented in this encounter Additional Health Concerns Assessment Noted Time PHQ-9 Depression Total Score: 7 02/10/20 24 3:34 PM CDT documented as of this encounter Care Teams Market Risk Specialist Relationship Specialty Start Date End Date Betty Galvin MD [address] [address] PCP - General INTERNAL MEDICINE 02/10/24 documented as of this encounter
--- OUTSIDE RECORDS SUMMARY | 2024-05-22 01:07 | XMS_ITS | Encounter Summary ---
Author Organization [facility] Address [address] [place] [address]. [place] [address] [place] [address] Care Team Providers Care Cut Out Press Operator Name Role Phone Betty Galvin MD Primary Care Provider [phone] Encounter Details Date Type Department Care Team [...] on file Legal Sex Male 5:38 PM MACHINE OPERATOR HELPER Gender Identity Not on file Sexual Orientation Not on file documented as of this encounter Plan of Treatment Upcoming Encounters Date Type Department Care Team (Late st Contact Info) Description 05/27/2024 1:40 PM MACHINE OPERATOR HELPER Office Visit [facility] Multispecialty Care - [address] [place] [address] Ryann Renner, WIRELESS INTERNET INSTALLER [address] [facility] [address] [place] [address] 06/15/2024 1:00 PM MACHINE OPERATOR HELPER Office Visit [facility] Multispecialty Care - [place] [address] [place] [address] [address] [place] [address] Betty Galvin MD [address] [facility] [address] [place] [address] 11/30/2024 9:40 AM CDT Office Visit [facility] Multispecialty Care - [facility] [address] [place] [phone] Nilo Dasilva DO [address] [facility] [address] [place] [address] documented as of this encounter Visit Diagnoses Not on filedocumented in this encounter Additional Health Concerns Assessment Noted Time PHQ-9 Depression Total Score: 7 02/10/20 24 3:34 PM CDT documented as of this encounter Care Teams Cut Out Press Operator Relationship Specialty Start Date End Date Betty Galvin MD [address]8 [facility] [address] [place] [address] PCP - General INTERNAL MEDICINE 02/10/24 documented as of this encounter
--- OUTSIDE RECORDS SUMMARY | 2024-05-22 01:07 | XMS_ITS | Encounter Summary ---
Author Organization [facility] Address [address] [place] [address]. [place], [place] [address] [place] [address] Care Team Providers Care Meter Tester Polyphase Name Role Phone Betty Galvin MD Primary Care Provider Reason for Referral * Consultation (Urgent) - Authorized Specialty Diagnoses / Procedures Referred By Josue truong Referred To Contact PSYCHOLOGY Diagnoses Mild episode of recurrent major depressive disorder (CMS/HCC) Anxiety Procedures OFFICE/OUTPATIENT NEW LOW MDM 30-44 MINUTES OFFICE/OUTPT VISIT,NEW,LEVL IV OFFICE/OUTPT VISIT,NEW,LEVL V OFFICE/OUTPT VISIT,EST,LEVL III OFFICE/OUTPT VISIT,EST,LEVL IV OFFICE/OUTPT VISIT,EST,LEVL V Betty Galvin MD [address]8 [facility] [address] [place] [address] Phone: tel: fax: [address] [address] Phone: tel: fax: Referral ID Status Reason Start Date Expiration Date Visits Requested Visits Authorized [id number] Authorized Specialty Services 4 04/12/2025 100 100 TECHNOLOGIST SUPERVISOR Reason for Visit * Reason Comments Follow Up Anxiety Depression Encounter Details Date Type Department Care Team (Latest Contact Info) Description 04/12/2024 1:40 PM CYTOTECHNOLOGIST SUPERVISOR Office Visit [facility] Medical Group Multispecialty Care - [place] [address] [address] [address] [place] [address] Betty Galvin MD 118[address] [facility] [address] [place] [address] Follow Up; Anxiety; Depression Social History Tobacco [...] on file Legal Sex Male 5:38 PM CYTOTECHNOLOGIST SUPERVISOR Gender Identity Not on file Sexual Orientation Not on file documented as of this encounter Last Filed Vital Signs Vital Sign Reading Time Taken Comments Blood Pressure 123/73 04/12/2024 1:45 PM CYTOTECHNOLOGIST SUPERVISOR Pulse 79 04/12/2024 1:45 PM CYTOTECHNOLOGIST SUPERVISOR Temperature 36.3 ??C (97.3 ??F) 04/12/2024 1:45 PM CS T Respiratory Rate 16 04/12/2024 1:45 PM CYTOTECHNOLOGIST SUPERVISOR Oxygen Saturation 99% 04/12/2024 1:45 PM CYTOTECHNOLOGIST SUPERVISOR Inhaled Oxygen Concentration - - Weight 130.2 kg (287 lb) 04/12/2024 1:45 PM CYTOTECHNOLOGIST SUPERVISOR Height 189.2 cm (6' 2.5 ) 04/12/2024 1:45 PM CYTOTECHNOLOGIST SUPERVISOR Body Mass Index 36.36 04/12/2024 1:45 PM CYTOTECHNOLOGIST SUPERVISOR documented in this encounter Patient Instructions * Patient Instructions* Betty Galvin MD - 04/12/2024 1:40 PM CYTOTECHNOLOGIST SUPERVISOR Please call to follow up on your therapy. Schedule for a nurse visit for your prevnar 20 vaccine on Friday. Schedule for your next visit in 8 weeks for your mood medication. Please take your medications as directed. TECHNOLOGIST SUPERVISOR TECHNOLOGIST SUPERVISOR * Attachments The following attachments cannot be sent through Care Everywhere. * Stress (Danish) documented in this encounter Progress Notes * [...] the day of the encounter. This includes hekl-zp-wshi and rpg-fkks-xp-face time I provided on the day of [...] was at least in part performed using Tiny Prints and there may be some inherent flaws in this cork insulation setter due to the nature of this program. Betty Galvin MD Internal Medicine [facility], [facility]. TECHNOLOGIST SUPERVISOR documented in this encounter Plan of Treatment Upcoming Encounters Date Type Department Care Team (Late st Contact Info) Description 05/27/2024 1:40 PM CYTOTECHNOLOGIST SUPERVISOR [facility] - [place] [address] [place] [address] Ryann Renner NP [address] [place] [address] [address] [place] [address] 06/15/2024 1:00 PM CYTOTECHNOLOGIST SUPERVISOR Office Visit [facility] - [place] [address] [place] [address] Betty Galvin MD [address] [place] [address] 157 [place] [address] 11/30/2024 9:40 AM CDT Office Visit [facility] Multispecialty [facility] - [facility] [address] [place] [address] Nilo Dasilva DO [address] [facility] [address] [place] [address] Scheduled Referrals Name Type Priority Associated Diagnoses Orde r Schedule Ambulatory Referral to Psychology Referral Routine Mild episode of recurrent major depressive disorder ([facility]) Anxiety Ordered: 04/12/2024 documented as of this encounter Visit Diagnoses Diagnosis Mild episode of recurrent major depressive disorder (CMS/HCC)- Primary Anxiety Anxiety state, unspecified documented in this encounter Additional Health Concerns Assessment Noted Time PHQ-9 Depression Total Score: 8 04/12/20 2:51 PM CYTOTECHNOLOGIST SUPERVISOR documented as of this encounter Care Teams Meter Tester Polyphase Relationship Specialty Start Date End Date Betty Galvin MD [address] [address] PCP - General INTERNAL MEDICINE 02/10/24 documented as of this encounter
--- OUTSIDE RECORDS SUMMARY | 2024-05-22 01:07 | XMS_ITS | Clinical Summary ---
Author Organization [facility] Address [facility] [place] [address] [place] [address] Care Team Providers Care Commercial Loan Specialist Name Role Phone Betty Galvin MD Primary Care Provider [phone] Allergies No known active allergies Medications valsartan-hydroCH [...] Department Care Team Description 05/20/2024 1:00 PM TELEVISION REPAIR TEACHER [facility] [address] [facility] [address] [place] [address] Ryann Renner, RUBBER GOODS TESTER ER F/U 05/20/2024 Travel 05/19/2024 Scan [facility] Scanned, Doc [facility] 05/16/2024 Scan [facility] Scanned, [facility] 04/23/2024 Scan [facility] Scanned, Doc [facility] 04/12/2024 1:40 PM TELEVISION REPAIR TEACHER Office Visit [facility] [address] [facility] [address] [place] [address] Betty Galvin MD Follow Up; Anxiety; Depression 04/12/2024 Travel 04/08/2024 Scan [facility] Scanned, Doc [facility] 04/07/2024 11:00 AM TELEVISION REPAIR TEACHER [facility] [address] [facility] [place] [address] Nilo Dasilva DO Obstructive Sleep Apnea (On cpap; would like a new cpap ) 04/07/2024 Telephone [facility] - [facility] [address] [facility] [address] [place] [address] Nilo Dasilva, DO Orders 04/07/2024 Travel 03/25/2024 [...] on file Legal Sex Male 5:38 PM TELEVISION REPAIR TEACHER Gender Identity Not on file Sexual Orientation Not on file Last Filed Vital Signs Vital Sign Reading Time Taken Comments Blood Pressure 140/87 05/20/2024 1:02 PM TELEVISION REPAIR TEACHER Pulse 115 05/20/2024 1:02 PM TELEVISION REPAIR TEACHER Temperature 36.9 ??C (98.4 ??F) 05/20/2024 1:02 PM CS T Respiratory Rate 19 05/20/2024 1:02 PM TELEVISION REPAIR TEACHER Oxygen Saturation 99% 05/20/2024 1:02 PM TELEVISION REPAIR TEACHER Inhaled Oxygen Concentration - - Weight 126.1 kg (278 lb) 05/20/2024 1:02 PM TELEVISION REPAIR TEACHER Height 189.2 cm (6' 2.5 ) 05/20/2024 1:02 PM TELEVISION REPAIR TEACHER Body Mass Index 35.22 05/20/2024 1:02 PM TELEVISION REPAIR TEACHER Plan of Treatment Upcoming Encounters Date Type Department Care Team (Late st Contact Info) Description 05/27/2024 1:40 PM TELEVISION REPAIR TEACHER Office Visit [facility] Medical Group Multispecialty Care - [address] [place] [address] Ryann Renner NP [address] [facility] [address] [place] [address] 06/15/2024 1:00 PM TELEVISION REPAIR TEACHER Office Visit [facility]pecialty Care - [place] [address] [facility] [address] [place] [address] Betty Galvin MD [address] [facility] [address] [place] [address] 11/30/2024 9:40 AM CDT [facility] [address] [place] [address] Nilo Dasilva DO [address] [facility] [address] [place] [address] Health Maintenance Due Date Last Done Comments [...] VE NON-REACT SHANELL 02/13/2024 7:12 PM CDT [facility] Comment: ANTIBODIES TO HCV NOT DETECTED. DOES NOT EXCLUDE THE POSSIBILITY OF EXPOSURE TO HCV. 02/12/2024 8:51 AM CDT Betty Galvin MD LABORATORY Final Result Performing Organization Address City/State/[facility] Co de Phone Number [facility] [address] [place] [address], [id number] from Last 3 Months or Most Recently Relevant to Health Maintenance Insurance [employer] Care Teams Commercial Loan Specialist Relationship Specialty Start Date End Date Betty Galvin MD [address] [facility] [address] [place] [address] PCP - General INTERNAL MEDICINE 02/10/24
--- OUTSIDE RECORDS SUMMARY | 2024-05-22 01:07 | XMS_ITS | Encounter Summary ---
Author Organization [facility] Address [address] [place] [address]. [place] [address] [place] [address] Care Team Providers Care Radiation Officer Name Role Phone Betty Galvin MD Primary [...] on file Legal Sex Male 5:38 PM SADDLE TREE STITCHER Gender Identity Not on file Sexual Orientation Not on file documented as of this encounter Plan of Treatment Upcoming Encounters Date Type Department Care Team (Late st Contact Info) Description 05/27/2024 1:40 PM SADDLE TREE STITCHER Office Visit [facility] Medical Group Multispecialty Care - [address] [place] [address] Ryann Renner, FISHERIES DIVER [address] [facility] [address] [place] [address] 06/15/2024 1:00 PM SADDLE TREE STITCHER Office Visit [facility] Multispecialty Care - [place] [address] [facility] [address] [place] [address] Betty Galvin MD [address] [facility] [address] [place] [address] 11/30/2024 9:40 AM CDT Office Visit [facility] Multispecialty Care - [facility] [address] [place] [address] Nilo Dasilva DO [address] [facility] [address] [place] [address] documented as of this encounter Visit Diagnoses Not on filedocumented in this encounter Additional Health Concerns Assessment Noted Time PHQ-9 Depression Total Score: 7 02/10/20 24 3:34 PM CDT documented as of this encounter Care Teams Radiation Officer Relationship Specialty Start Date End Date Betty Galvin MD [address] [facility] [address] [place] [address] PCP - General INTERNAL MEDICINE 02/10/24 documented as of this encounter
--- OUTSIDE RECORDS SUMMARY | 2024-05-22 01:08 | XMS_ITS | Encounter Summary ---
Author Organization [facility] Address [address] [place] [address]. [place] [address] [place] [address] Care Team Providers Care Fur Stretcher Name Role Phone None, Provider Primary Care Provider Betty Mccray MD Primary Care Provider [phone] Reason for Visit * Reason Comments Sleep [...] on file Legal Sex Male 5:38 PM ENVIRONMENTAL CONSULTANT Gender Identity Not on file Sexual Orientation Not on file documented as of this encounter Plan of Treatment Upcoming Encounters Date Type Department Care Team (Late Contact Info) Description 05/27/2024 1:40 PM ENVIRONMENTAL CONSULTANT Office Visit [facility] Medical [facility] Multispecialty Care - [address] [place] [address] Ryann Renner NP [address] [facility] [address] [place] [address] 06/15/2024 1:00 PM ENVIRONMENTAL CONSULTANT Office Visit [facility] Multispecialty Care - [address] [place] [address] Betty Galvin MD 118[address] [facility] [address] [place] [address] 11/30/2024 9:40 AM CDT [facility] [address] [place] [address] Nilo Dasilva DO [address] [facility] [address] [place] [address] documented as of this encounter Procedures Procedure Name Priority Date/Time Associated Diagnosis Comments SLEEP STUDY GENERIC (SCAN ORDER) 06/20/2015 documented in this encounter Results * SLEEP STUDY GENERIC (SCAN ORDER) (06/20/2015) 06/20/2015 us Doc [facility] Scanned SCANNING Final Resu lt documented in this encounter Visit Diagnoses Not on filedocumented in this encounter Care Teams Fur Stretcher Relationship Specialty Start Date End Date None, Provider, PCP - General 07/16/19 02/09/24 Betty Galvin MD [address] [facility] [address] [place] [address] PCP - General INTERNAL MEDICINE 02/10/24 documented as of this encounter
--- OUTSIDE RECORDS SUMMARY | 2024-05-22 01:08 | XMS_ITS | Encounter Summary ---
Author Organization [facility] Address [address] [place] [address]. [place] [address] [place] [address] Care Team Providers Care Merchandise Team Manager Name Role Phone Betty Galvin MD Primary Care Provider [phone] Reason for Visit * Reason Comments Allied Health Visit Pt is here for labs and Tdap vaccine Encounter Details Date Type Department Care Team (Latest Contact Info) Description 02/12/2024 9:00 AM CDT Allied Health/Nurse Visit [facility] Medical Group Multispecialty Care - [place] [address] [address] [place] [address] Betty Galvin MD [address] [place] [address] [address] [place], [place] [phone] Allied Health Visit (Pt is here for [...] on file Legal Sex Male 5:38 PM EDGE BRUSHER Gender Identity Not on file Sexual Orientation Not on file documented as of this encounter Progress Notes * Jina Ge MA - 02/12/2024 9:00 AM CDT Pt is here for labs and Tdap vaccine documented in this encounter Plan of Treatment Upcoming Encounters Date Type Department Care Team (Late st Contact Info) Description 05/27/2024 1:40 PM EDGE BRUSHER [facility] [address] [place] [address] [place] [address] [place] [address] [address] [place] [address] 06/15/2024 1:00 PM EDGE BRUSHER [facility] - [address] [place] [address] [place] [address] [place] [address] [address] [place] [address] 11/30/2024 9:40 AM CDT Office Visit [facility]ialty Care - [facility] [address] [place] [address] Nilo Dasilva DO [address] [facility] [address] [place] [address] documented as of this encounter Procedures Procedure [...] ANTIBODY (02/12/2024 8:51 AM CDT) Pathologist [facility] HEPATITIS C AB NON-REACTI VE NON-REACT SHANELL 02/13/2024 7:12 PM CDT [facility] Comment: ANTIBODIES TO HCV NOT DETECTED. DOES NOT EXCLUDE THE POSSIBILITY OF EXPOSURE TO HCV. 02/12/2024 8:51 AM CDT Betty Galvin MD LABORATORY Final Result [facility] [address] [place] [address], [id number] * HEMOGLOBIN, GLYCOSYLATED (02/12/2024 8:51 AM CDT) HGB A1C 5.2 4.5 - 6.2 % 02/12/2024 3:10 PM CDT [facility] ESTIMATED AVG GLUCOSE 103 74 - 106 MG/DL 02/12/2024 3:10 PM CDT [facility] 02/12/2024 8:51 AM CDT us Betty Galvin MD LABORATORY Final Result Performing Organization Address City/[facility]/ZIP Co de Phone Number [facility] DOUGLAS [address] [place] [address], * TSH W/REFLEX (02/12/2024 8:51 AM CDT) TSH 1.188 0.358 - 3.740 uIU/ML 02/12/2024 3:04 PM CDT [facility] 02/12/2024 8:51 AM CDT us Betty Galvin MD LABORATORY Final Result Performing Organization Address City/[facility]/ZIP Co de Phone Number [facility] [id number] [place] [address], * LIPID PANEL (02/12/2024 8:51 AM CDT) CHOLESTEROL 152 <200 MG/DL 02/12/2024 3:04 PM CDT [facility] TRIGLYCERIDES 50 <150 MG/DL 02/12/2024 3:04 PM CDT [facility] HDL 46 >40 MG/DL 02/12/2024 3:04 PM CDT [facility] LDL-C 96 <100 MG/DL 02/12/2024 3:04 PM CDT [facility] VLDL CALCULATION 10 5 - 28 MG/DL 02/12/2024 3:04 PM CDT [facility] CHOL/HDL RATIO 3.3 0.0 - 4.0 02/12/2024 3:04 PM CDT [facility] LDL/HDL 2.1 0.41 - 2.13 02/12/2024 3:04 PM T [facility] NON HDL CHOLESTEROL 106 <140 MG/DL 02/12/2024 3:04 PM CDT [facility] 02/12/2024 8:51 AM CDT Betty Galvin MD LABORATORY Final Result [facility] STEVE, [address] [place] [address], * (ABNORMAL) COMPREHENSIVE METABOLIC PANEL (02/12/2024 8:51 AM CDT) SODIUM S/P/B 142 136 - 145 MMOL/L 02/12/2024 3:04 PM CDT [facility] POTASSIUM S/P/B 4.0 3.5 - 5.1 MMOL/L 02/12/2024 3:04 PM CDT [facility] CHLORIDE S/P/B 105 98 - 107 MMOL/L 02/12/2024 3:04 PM CDT [facility] CO2 30.4 21 - 32 MMOL/L 02/12/2024 3:04 PM T [facility] GLUCOSE 101(H) 70 - 99 MG/DL 02/12/2024 3:04 PM CDT [facility] BUN 10 7 - 18 MG/DL 02/12/2024 3:04 PM CDT [facility] CREATININE S/P/B 1.16 0.70 - 1.30 MG/DL 02/12/2024 3:04 PM T [facility] CALCIUM S/P/B 9.4 8.4 - 10.5 MG/DL 02/12/2024 3:04 PM CDT [facility] BILIRUBIN TOTAL S/P/B 0.5 0.2 - 1.0 MG/DL 02/12/2024 3:04 PM T [facility] ALKALINE PHOSPHATASE S/P/B 69 45 - 115 U/L 02/12/2024 3:[address] [facility] AST 17 15 - 37 U/L 02/12/2024 3:04 PM T [facility] ALT 35 16 - 63 U/L 02/12/2024 3:[address] [facility] TOTAL PROTEIN S/P/B 6.8 6.4 - 8.2 G/DL 02/12/2024 3:[address] [facility] ALBUMIN S/P/B 3.8 3.4 - 5.0 G/DL 02/12/2024 3:[address] [facility] ANION GAP 6.6 5 - 15 MMOL/L 02/12/2024 3:[address] [facility] Comment:REFERENCE RANGE NOT ESTABLISHED OSMOLALITY (CALC) 293 MOSM/KG 024 3:04 PM T [facility] Comment:REFERENCE RANGE NOT ESTABLISHED GFR ESTIMATE 81(L) >90 ML/MIN/1. 73 M2 02/12/2024 3:[address] [facility] GFR NOTES GFR REFERENCE S: 02/12/2024 3:[address] [facility] Comment: THE ESTIMATED GFR IS CALCULATED [...] Galvin MD LABORATORY Final Result -EBONY [place] DOUGLAS [address] [facility] [place] [address], [place] [phone] * (ABNORMAL) CBC W/DIFF AUTOMATED (02/12/2024 8:51 AM CDT) Pathologist [facility] WBC 6.11 4.00 - 10.80 x10'3/uL 02/12/2024 2:29 PM CDT [facility] RBC 5.45 4.50 - 6.10 x10'6/uL 02/12/2024 2:29 PM CDT [facility] HGB 14.2 13.0 - 18.0 G/DL 02/12/2024 2:29 PM CDT [facility] HCT 45.0 37.0 - 52.0 % 02/12/2024 2:29 PM CDT [facility] MCV 82.6 78.0 - 100.0 FL 02/12/2024 2:29 PM CDT [facility] MCH 26.1(L) 27.0 - 31.0 PG 02/12/2024 2:29 PM CDT [facility] MCHC 31.6(L) 33.0 - 36.0 G/DL 02/12/2024 2:29 PM CDT [facility] RDW 14.0 11.5 - 14.5 % 02/12/2024 2:29 PM CDT [facility] PLT 167 150 - 350 x10'3/uL 02/12/2024 2:29 PM CDT [facility] MPV 12.6(H) 7.4 - 10.4 FL 02/12/2024 2:29 PM CDT [facility] DIFFERENTIAL TYPE AUTOMATED DIFFERENTIAL 02/12/2024 2:29 PM CDT [facility] NEUTROPHILS % 61.8 % 02/12/2024 2:29 PM CDT [facility] LYMPHOCYTES % 29.0 % 02/12/2024 2:29 PM CDT [facility] MONOCYTES % 5.4 % 02/12/2024 2:29 PM CDT [facility] EOSINOPHILS % 3.4 % 02/12/2024 2:29 PM CDT [facility] BASOPHILS % 0.2 % 02/12/2024 2:29 PM CDT [facility] IMMATURE GRANS % 0.2 % 02/12/2024 2:29 PM CDT [facility] ABS. NEUTROPHILS 3.78 1.60 - 8.30 x10'3/uL 02/12/2024 2:29 PM CDT [facility] ABS. LYMPHOCYTES 1.77 0.80 - 4.70 x10'3/uL 02/12/2024 2:29 PM CDT [facility] ABS. MONOCYTES 0.33 0.00 - 1.50 x10'3/uL 02/12/2024 2:29 PM CDT [facility] ABS. EOSINOPHILS 0.21 0.00 - 0.40 x10'3/uL 02/12/2024 2:29 PM CDT [facility] ABS. BASOPHILS 0.01 0.00 - 0.20 x10'3/uL 02/12/2024 2:29 PM CDT [facility] ABS. IMMATURE GRANULOCYTES 0.01 0.00 - 0.03 x10'3/uL 02/12/2024 2:29 PM CDT [facility] 02/12/2024 8:51 AM CDT us Betty Galvin MD LABORATORY Final Result [facility] [address] [place] [address], documented in this encounter Visit Diagnoses Diagnosis Need for fqatizddlp-lvmkcdx-xwnrnjlkk (Tdap) vaccine- Primary Need for prophylactic vaccination with combined esflvnidpm-tldphuk-bardsbvyh (DTP) vaccine Annual physical exam Routine general [...] documented as of this encounter Care Teams Merchandise Team Manager Relationship Specialty Start Date End Date Betty Galvin MD [address] [address] PCP - General INTERNAL MEDICINE 02/10/24 documented as of this encounter
--- OUTSIDE RECORDS SUMMARY | 2024-05-22 01:08 | XMS_ITS | Encounter Summary ---
Author Organization [facility] Address [address] [place] [address]. [place] [address] [place] [address] Care Team Providers Care Core Inserter Name Role Phone None, Provider Primary Care Provider Unavaila ble Reason for Referral * Imaging (Emergency) - Closed Specialty Diagnoses / Procedures Referred By Josue t Referred To Contact RADIOLOGY Procedures CT ABD+PEL W IV CON ONLY Toshia Ovalles PA [address] [place] [address] Phone: tel: fax: Referral ID Status Reason Start Date Expiration Date Visits Re quested Visits Authorized [id number] Closed 07/16/2019 08/13/2020 1 1 HOUSE WORKER Reason for Visit * Reason Comments Abdominal Pain Encounter Details Date Type Department Care Team (Late st Contact Info) Description 07/16/2019 5:58 PM WASH HOUSE WORKER - 07/16/2019 10:31 PM WASH HOUSE WORKER Emergency [facility] Emergency Room [place], [place] [id number] Nataliia Frausto NP [address] [id number] Abdominal Pain Discharge Disposition: Home or Self Care (Routine Discharge) Social History Tobacco Use Types Packs/Day Years Used Date Smoking Tobacco: Never Smokeless Tobacco: Never Alcohol Use Standard Drinks/Week Comments Yes 0 (1 standard drink = 0.6 oz pur e alcohol) socially Sex and Gender Information Value Date Recorded Sex Assigned at Not on file Legal Sex Male 5:38 PM WASH HOUSE WORKER Gender Identity Not on file Sexual Orientation Not on file documented as of this encounter Last Filed Vital Signs Vital Sign Reading Time Taken Comments Blood Pressure 149/98 07/16/2019 5:53 PM WASH HOUSE WORKER Pulse 104 07/16/2019 5:53 PM WASH HOUSE WORKER Temperature 36.3 ??C (97.4 ??F) 07/16/2019 5:53 PM CS T Respiratory Rate 20 07/16/2019 5:53 PM WASH HOUSE WORKER Oxygen Saturation 98% 07/16/2019 8:15 PM WASH HOUSE WORKER Inhaled Oxygen Concentration - - Weight 145.7 kg (321 lb 3.4 oz) 07/16/2019 5:53 PM WASH HOUSE WORKER Height 189.2 cm (6' 2.5 ) 07/16/2019 5:53 PM WASH HOUSE WORKER Body Mass Index 40.69 07/16/2019 5:53 PM WASH HOUSE WORKER documented in this encounter Discharge Instructions * Discharge Instructions* Nataliia Frausto NP - 07/16/2019 9:52 PM WASH HOUSE WORKER 1) Please use medications as directed for [...] in vomit or other new emergent concerns. HOUSE WORKER * Attachments The following attachments cannot be sent through Care Everywhere. * Diverticulitis Discharge Instructions ([facility]) * High Fiber Diet ([facility]) documented in this encounter Medications at Time [...] symptoms persisted. Patient had no further questions. HOUSE WORKER * Nataliia Frausto NP - 07/16/2019 7:10 [...] IV CON ONLY Final Result by User, [id number] (07/16 1930) EXAM: CT ABD+PEL W CON [...] reach. Disposition: Discharge Follow-Up: Farshad Martin MD [address] [place] [address] DR GALVAN [address] [place] [id number] As needed/ or your own PCP TUTU THOMAS 07/17/2019 TUTU Thomas 07/17/19 1319 Cosigned by Reyes Luis MD at 07/22/2019 8:03 PM WASH HOUSE WORKER HOUSE WORKER HOUSE WORKER * DIXIE Wing - 07/16/2019 6:03 PM CST [place] EMERGENCY DEPARTMENT ENCOUNTER Medical Screening Examination [...] Idris Morris DO at 07/16/2019 6:56 PM WASH HOUSE WORKER HOUSE WORKER HOUSE WORKER * Rosy John RN - 07/16/2019 5:55 PM CST Patient ambulatory to triage with c/o generalized abdominal pain. Patient stated that pain started yesterday. Patient denies n/v/d. Patient stated that he has a history of diverticulitis. .ROSY JOHN RN HOUSE WORKER documented in this encounter Plan of Treatment Upcoming Encounters Date Type Department Care Team (Late st Contact Info) Description 05/27/2024 1:40 PM WASH HOUSE WORKER Office Visit [facility] [place] [address] [place] [address] Ryann Renner NP [address] [place] [address] 06/15/2024 1:00 PM WASH HOUSE WORKER Office Visit [facility] [place] [address] [place] [address] Betty Galvin MD [address] [facility] [address] [place] [address] 11/30/2024 9:40 AM CDT Office Visit [facility] - [facility] [address] [facility] [address] [place] [address] Nilo Dasilva, [address] [facility] [address] [place] [address] documented as of this encounter Procedures Procedure Name Priority Date/Time Associated Diagnosis Comments LACTIC ACID TIMED 07/16/2019 7:56 PM WASH HOUSE WORKER CULTURE, BACTERIA, BLOOD STAT 07/16/2019 7:56 PM WASH HOUSE WORKER CULTURE, BACTERIA, BLOOD STAT 07/16/2019 7:[address] ABD+PEL W CON STAT 07/16/2019 7:13 PM WASH HOUSE WORKER COMPREHENSIVE METABOLIC PANEL STAT 07/16/2019 6:11 PM WASH HOUSE WORKER CBC W/DIFF AUTOMATED STAT 07/16/2019 6:11 PM WASH HOUSE WORKER LIPASE STAT 07/16/2019 6:11 PM WASH HOUSE WORKER documented in this encounter Results * CULTURE, BACTERIA, BLOOD (07/16/2019 7:56 PM WASH HOUSE WORKER) SPEC DESCRIPTION BLOOD 07/16/2019 7:42 PM WASH HOUSE WORKER [facility] SPECIAL REQUESTS NO SPECIAL REQUEST 07/16/2019 7:42 PM WASH HOUSE WORKER [facility] CULTURE RESULT NO GROWTH 5 DAYS 07/21/2019 11:00 AM WASH HOUSE WORKER [facility] BLOOD SPECIMEN OBTAINED FOR BLOOD CULTURE / Unknown 07/16/2019 7:56 PM WASH HOUSE WORKER 07/16/2019 8:08 PM WASH HOUSE WORKER Nataliia Frausto CNC MACHINE SETTER MICROBIOLOGY - GENERAL ORDERA BLES Final Result [facility] [address] [place] [address], [place] [phone] * CULTURE, BACTERIA, BLOOD (07/16/2019 7:56 PM WASH HOUSE WORKER) SPEC DESCRIPTION BLOOD 07/16/2019 7:42 PM WASH HOUSE WORKER [facility] SPECIAL REQUESTS NO SPECIAL REQUEST 07/16/2019 7:42 PM WASH HOUSE WORKER [facility] CULTURE RESULT NO GROWTH 5 DAYS 07/21/2019 11:00 AM WASH HOUSE WORKER [facility] BLOOD SPECIMEN OBTAINED FOR BLOOD CULTURE / Unknown 07/16/2019 7:56 PM WASH HOUSE WORKER 07/16/2019 8:08 PM WASH HOUSE WORKER Nataliia Frausto NP MICROBIOLOGY - GENERAL ORDERA BLES Final Result Performing Organization Address City/[facility]/ZIP Co de Phone Number [facility] [address] [place] [address], [place] [phone] * LACTIC ACID (07/16/2019 7:56 PM WASH HOUSE WORKER) LACTIC ACID VENOUS 0.7 0.4 - 2.0 MMOL/L 07/16/2019 8:33 PM WASH HOUSE WORKER [facility] 07/16/2019 7:56 PM WASH HOUSE WORKER Nataliia Frausto CNC MACHINE SETTER LABORATORY Final Result [facility] [address] [place] [address], [place] [phone] * CT ABD+PEL W IV CON ONLY (07/16/2019 7:13 PM WASH HOUSE WORKER) Anatomical Region Laterality Modality Abdomen Computed Tomogra phy 07/16/2019 7:17 PM WASH HOUSE WORKER Impressions 07/16/2019 7:30 PM WASH HOUSE WORKER IMPRESSION: 1. ??Gastroesophageal reflux or vomiting. 2. [...] 07/16/2019 7:17 PM Narrative 07/16/2019 7:30 PM WASH HOUSE WORKER EXAM: CT ABD+PEL W CON DATE: 07/16/2019 [...] t * (ABNORMAL) LIPASE (07/16/2019 6:11 PM WASH HOUSE WORKER) LIPASE 64(L) 73 - 393 UNITS/L 07/16/2019 6:51 PM WASH HOUSE WORKER [facility] 07/16/2019 6:11 PM WASH HOUSE WORKER us T[facility]ia [facility] Final Resul t [facility] [address] [place] [address], * (ABNORMAL) COMPREHENSIVE METABOLIC PANEL (07/16/2019 6:11 PM WASH HOUSE WORKER) [facility] GLUCOSE 101(H) 70 - 99 MG/DL 07/16/2019 6:51 PM [facility] BUN 11 7 - 18 MG/DL 07/16/2019 6:51 PM [facility] CREATININE S/P/B 1.20 0.7 - 1.3 MG/DL 07/16/2019 6:51 PM [facility] SODIUM S/P/B 140 136 - 145 MMOL/L 07/16/2019 6:51 PM [facility] POTASSIUM S/P/B 3.4(L) 3.5 - 5.1 MMOL/L 07/16/2019 6:51 PM [facility] CHLORIDE S/P/B 106 100 - 108 MMOL/L 07/16/2019 6:51 PM [facility] CO2 27.6 21 - 32 MMOL/L 07/16/2019 6:51 PM [facility] CALCIUM S/P/B 9.2 8.5 - 10.1 MG/DL 07/16/2019 6:51 PM [facility] BILIRUBIN TOTAL S/P/B 0.8 0.2 - 1.2 MG/DL 07/16/2019 6:51 PM [facility] TOTAL PROTEIN S/P/B 7.6 6.4 - 8.2 G/DL 07/16/2019 6:51 PM [facility] ALBUMIN S/P/B 3.6 3.4 - 5.0 G/DL 07/16/2019 6:51 PM [facility] AST 20 15 - 37 U/L 07/16/2019 6:51 PM [facility] ALT 48 16 - 60 U/L 07/16/2019 6:51 PM [facility] ALKALINE PHOSPHATASE S/P/B 84 50 - 136 U/L 07/16/2019 6:51 PM [facility] ANION GAP 6.4 5 - 15 MMOL/L 07/16/2019 6:51 PM [facility] BUN CREATININE RATIO 9.2 6 - 26 07/16/2019 6:51 PM [facility] A/G RATIO 0.9(L) 1.0 - 2.0 RATIO 07/16/2019 6:51 PM [facility] EGFR NON-AFR. AMER. 77(L) >90 ML/MIN/1.7 3 M2 07/16/2019 6:51 PM [facility] EGFR AFR. AMER. 89(L) >90 ML/MIN/1.7 3 M2 07/16/2019 6:51 PM [facility] Comment: NOTE: eGFR is not calculated for patients <18 years of age. This is an estimated GFR (CKD EPI) and should not be used for calculating drug doses. 07/16/2019 6:11 PM WASH HOUSE WORKER T[facility] Final Resul t [facility] [address] [place] [address], * (ABNORMAL) CBC W/DIFF AUTOMATED (07/16/2019 6:11 PM WASH HOUSE WORKER) WBC 13.7(H) 4.5 - 11.0 x10'3/uL 07/16/2019 6:32 PM [facility] RBC 5.60 4.70 - 6.10 x10'6/uL 07/16/2019 6:32 PM [facility] HGB 14.6 14.0 - 18.0 G/DL 07/16/2019 6:32 PM [facility] HCT 45.1 43.0 - 54.0 % 07/16/2019 6:32 PM [facility] MCV 80.5 80.0 - 94.0 FL 07/16/2019 6:32 PM [facility] MCH 26.1(L) 27.0 - 31.0 PG 07/16/2019 6:32 PM [facility] MCHC 32.4 32.0 - 36.0 G/DL 07/16/2019 6:32 PM [facility] RDW 14.4 11.5 - 14.5 % 07/16/2019 6:32 PM [facility] PLT 212 130 - 400 x10'3/uL 07/16/2019 6:32 PM [facility] MPV 11.7 9.3 - 12.2 FL 07/16/2019 6:32 PM [facility] DIFFERENTIAL TYPE AUTOMATED DIFFERENTIAL 07/16/2019 6:32 PM [facility] NEUTROPHILS % 78.3 % 07/16/2019 6:32 PM [facility] LYMPHOCYTES % 14.6 % 07/16/2019 6:32 PM [facility] MONOCYTES % 5.8 % 07/16/2019 6:32 PM [facility] EOSINOPHILS 0.8 % 07/16/2019 6:32 PM [facility] BASOPHILS 0.1 % 07/16/2019 6:32 PM [facility] IMMATURE GRANS % 0.4 % 07/16/19 20 6:32 PM WASH HOUSE WORKER [facility] ABS. NEUTROPHILS TOTAL 10.75(H) 1.80 - 7.70 x10'3/uL 07/16/2019 6:32 PM WASH HOUSE WORKER [facility] ABS. LYMPHOCYTES 2.00 1.00 - 4.80 x10'3/uL 07/16/2019 6:32 PM WASH HOUSE WORKER [facility] ABS. MONOCYTES 0.80 0.30 - 0.82 x10'3/uL 07/16/2019 6:32 PM WASH HOUSE WORKER [facility] ABS. EOSINOPHILS 0.11 0.04 - 0.54 x10'3/uL 07/16/2019 6:32 PM WASH HOUSE WORKER [facility] ABS. BASOPHILS 0.02 0.01 - 0.08 x10'3/uL 07/16/2019 6:32 PM WASH HOUSE WORKER [facility] ABS. IMMATURE GRANULOCYTES 0.05 0.00 - 0.49 x10'3/uL 07/16/2019 6:32 PM WASH HOUSE WORKER [facility] 07/16/2019 6:11 PM WASH HOUSE WORKER [facility] Final Resul t [facility] [address] [place] [address], documented in this encounter Visit Diagnoses Diagnosis [...] least 2-3 minutes. Given 07/16/2019 9:11 PM WASH HOUSE WORKER 1 mg iopamidol (ISOVUE-370) 76 % injection 100 mL 100 mL, Intravenous, IMG once as needed, Contrast, 1 dose, Starting on Fri07/16/19 at 1913, Until Fri07/16/19 at 1913 Given 07/16/2019 7:13 PM WASH HOUSE WORKER 100 mLs Left Arm levofloxacin (LEVAQUIN) IVPB 500 mg 500 mg, Intravenous, at 100 mL/hr, Once, 1 dose, On Fri07/16/19 at 1945 New Bag 07/16/2019 7:59 PM WASH HOUSE WORKER 500 mg 100 mL/hr metroNIDAZOLE (FLAGYL) IVPB 500 mg 500 mg, Intravenous, at 100 mL/hr, Once, 1 dose, On Fri07/16/19 at 1945 New Bag 07/16/2019 7:58 PM WASH HOUSE WORKER 500 mg 100 mL/hr morphine injection 4 mg 4 mg, Intravenous, Once, 1 dose, On Fri07/16/19 at 1815 Given 07/16/2019 6:56 PM WASH HOUSE WORKER 4 mg morphine injection 4 mg 4 mg, Intravenous, Once, 1 dose, On Fri07/16/19 at 1930 Given 07/16/2019 7:56 PM WASH HOUSE WORKER 4 mg ondansetron (ZOFRAN) injection 4 mg 4 mg, Intravenous, Once, 1 dose, On Fri07/16/19 at 1815, IV push over 2-5 minutes. Given 07/16/2019 6:45 PM WASH HOUSE WORKER 4 mg sodium chloride 0.9% bolus infusion SOLN 1,000 mL 1,000 mL, Intravenous, Administer over 15 Minutes, Once, 1 dose, On Fri07/16/19 at 1945 New Bag 07/16/2019 7:59 PM WASH HOUSE WORKER 1,000 mLs documented in this encounter Active and Recently Administered Medications Times are shown in WASH HOUSE WORKER. Scheduled Medication Order 07/14/2019 07/15/2019 07/16/2019 HYDROmorphone [...] RTR) documented in this encounter Care Teams Core Inserter Relationship Specialty Start Date End Date None, Provider, PCP - General 07/16/19 02/09/24 documented as of this encounter
--- OUTSIDE RECORDS SUMMARY | 2024-05-22 01:08 | XMS_ITS | Encounter Summary ---
Author Organization [facility] Address [address] [place] [address]. [place] [address] [place] [address] Care Team Providers Care Cleaning Custodian Name Role Phone Betty Galvin MD Primary Care Provider [phone] Reason for Referral * Consultation (Routine) - Authorized Specialty Diagnoses / Procedures Referred By Contact Referred To Contact SLEEP & RESPIRATORY CARE Diagnoses RYAN on CPAP Procedures OFFICE/OUTPATIENT NEW LOW MDM 30-44 MINUTES OFFICE/OUTPT VISIT,NEW,LEVL IV OFFICE/OUTPT VISIT,NEW,LEVL V OFFICE/OUTPT VISIT,EST,LEVL III OFFICE/OUTPT VISIT,EST,LEVL IV OFFICE/OUTPT VISIT,EST,LEVL V Betty Galvin MD [address] [facility] [address] [place] [address] Phone: tel:[phone] fax:[phone] [facility] Medical [facility] Multispecialty Care - [address], [address] [place] [address] Phone: tel: fax: Referral ID Status Reason Start Date Expiration Date Visits Requested Visits Authorized [id number] Authorized Specialty Services 02/10/2024 02/09/2025 99 99 Reason for Visit * Reason Comments Follow Up New pt looking for P CP Hypertension Anxiety Depression Physical Encounter Details Date Type Department Care Team (Latest Contact Info) Description 02/10/2024 2:40 PM CDT Office Visit [facility] Medical Group Multispecialty Care - [address] [address] [address] [place] [address] Betty Galvin MD [address] [facility] [address] [place] [address] Follow Up (New pt looking for PCP); [...] on file Legal Sex Male 5:38 PM CLIMATOLOGIST Gender Identity Not on file Sexual Orientation [...] Care Everywhere. * Yearly Physical for Adults (Tanzanian) documented in this encounter Progress Notes * [...] a chiropractor for his neckand back in [facility] and has been seeing him for the [...] Not seeing a pulmonary. Gets supplies from [employer] patient. Patient with longstanding history of anxiety [...] (Generalized Anxiety Disorder) Screening 02/10/2024 3:34 PM ZNAE-7 Feeling nervous, anxious, or on edge 2 [...] Dose CT screening Sleep Apnea Risk Factors: RYAN on CPAP Review of Systems Constitutional: Negative [...] smoking/second hand smoking. Patient will set up InterValvet. Patient will fax over any remaining outside [...] index (BMI) of36.0 to 36.9 in adult ([facility]/HCC HHS/HCC) --Pt has elevated weight with BMI Body mass index is 36.53 kg/m??., and will need to work hard on reducing carbohydrates and total calories. -You may use the free smart phone apps such as [employer] to help track calories and try to [...] on CPAP - Ambulatory referral to Pulmonology ([facility]) - Currently already on CPAP machine. [...] mouth 2 (two) times daily. Need for rnvliumjqr-wyjfiax-ayexgidxf (Tdap) vaccine - Cancel: [[id number]] Adacel (Tdap) Mild episode of recurrent major [...] the day of the encounter. This includes pcih-zg-cjxy and jpv-fmkn-mz-face time I provided on the day of the encounter & excludes time spent performing separately reportable services. PARVEZON: This dictation was at least in part performed using [employer] and there may be some inherent flaws in this director of tax services due to the nature of this program. MD Betty PEPPER MD Internal Medicine [facility] Medical Group, [facility]. documented in this encounter Plan of Treatment Upcoming Encounters Date Type Department Care Team (Late st Contact Info) Description 05/27/2024 1:40 PM CLIMATOLOGIST Office Visit [facility] Multispecialty Care - [place] [address] [facility] [address] [place] [address] Ryann Renner NP [address] [facility] [address] [place] [address] 06/15/2024 1:00 PM CLIMATOLOGIST [facility] [place] [address] [facility] [address] [place] [address] Betty Galvin MD [address] [facility] [address] [place] [address] 11/30/2024 9:40 AM CDT [facility] [address] [place] [address] Nilo Dasilva DO [address] [place] [address] Scheduled Referrals Name Type Priority Associated Diagnoses Orde r Schedule Ambulatory referral to Pulmonology ([facility]) Referral Routine RYAN on CPAP Ordered: [...] - 10.80 x10'3/uL 02/12/2024 2:29 PM CDT [facility] RBC 5.45 4.50 - 6.10 x10'6/uL 02/12/2024 2:29 PM CDT [facility] HGB 14.2 13.0 - 18.0 G/DL 02/12/2024 2:29 PM CDT [facility] HCT 45.0 37.0 - 52.0 % 02/12/2024 2:29 PM CDT [facility] MCV 82.6 78.0 - 100.0 FL 02/12/2024 2:29 PM CDT [facility] MCH 26.1(L) 27.0 - 31.0 PG 02/12/2024 2:29 PM CDT [facility] MCHC 31.6(L) 33.0 - 36.0 G/DL 02/12/2024 2:29 PM CDT [facility] RDW 14.0 11.5 - 14.5 % 02/12/2024 2:29 PM CDT [facility] PLT 167 150 - 350 x10'3/uL 02/12/2024 2:29 PM CDT [facility] MPV 12.6(H) 7.4 - 10.4 FL 02/12/2024 2:29 PM CDT [facility] DIFFERENTIAL TYPE AUTOMATED DIFFERENTIAL 02/12/2024 2:29 PM CDT [facility] NEUTROPHILS % 61.8 % 02/12/2024 2:29 PM CDT [facility] LYMPHOCYTES % 29.0 % 02/12/2024 2:29 PM CDT [facility] MONOCYTES % 5.4 % 02/12/2024 2:29 PM CDT [facility] EOSINOPHILS % 3.4 % 02/12/2024 2:29 PM CDT [facility] BASOPHILS % 0.2 % 02/12/2024 2:29 PM CDT [facility] IMMATURE GRANS % 0.2 % 02/12/2024 2:29 PM CDT [facility] ABS. NEUTROPHILS 3.78 1.60 - 8.30 x10'3/uL 02/12/2024 2:29 PM CDT [facility] ABS. LYMPHOCYTES 1.77 0.80 - 4.70 x10'3/uL 02/12/2024 2:29 PM CDT [facility] ABS. MONOCYTES 0.33 0.00 - 1.50 x10'3/uL 02/12/2024 2:29 PM CDT [facility] ABS. EOSINOPHILS 0.21 0.00 - 0.40 x10'3/uL 02/12/2024 2:29 PM CDT [facility] ABS. BASOPHILS 0.01 0.00 - 0.20 x10'3/uL 02/12/2024 2:29 PM CDT [facility] ABS. IMMATURE GRANULOCYTES 0.01 0.00 - 0.03 x10'3/uL 02/12/2024 2:29 PM CDT [facility] 02/12/2024 8:51 AM CDT Betty Galvin MD LABORATORY Final Result [facility] [address] [place] [address], * (ABNORMAL) COMPREHENSIVE METABOLIC PANEL (02/12/2024 8:51 AM CDT) Pathologist [facility] SODIUM S/P/B 142 136 - 145 MMOL/L 02/12/2024 3:04 PM CDT [facility] POTASSIUM S/P/B 4.0 3.5 - 5.1 MMOL/L 02/12/2024 3:04 PM CDT [facility] CHLORIDE S/P/B 105 98 - 107 MMOL/L 02/12/2024 3:04 PM CDT [facility] CO2 30.4 21 - 32 MMOL/L 02/12/2024 3:04 PM [facility] GLUCOSE 101(H) 70 - 99 MG/DL 02/12/2024 3:04 PM [facility] BUN 10 7 - 18 MG/DL 02/12/2024 3:04 PM [facility] CREATININE S/P/B 1.16 0.70 - 1.30 MG/DL 02/12/2024 3:04 PM [facility] CALCIUM S/P/B 9.4 8.4 - 10.5 MG/DL 02/12/2024 3:04 PM [facility] BILIRUBIN TOTAL S/P/B 0.5 0.2 - 1.0 MG/DL 02/12/2024 3:04 PM [facility] ALKALINE PHOSPHATASE S/P/B 69 45 - 115 U/L 02/12/2024 3:04 PM [facility] AST 17 15 - 37 U/L 02/12/2024 3:04 PM [facility] ALT 35 16 - 63 U/L 02/12/2024 3:04 PM [facility] TOTAL PROTEIN S/P/B 6.8 6.4 - 8.2 G/DL 02/12/2024 3:04 PM [facility] ALBUMIN S/P/B 3.8 3.4 - 5.0 G/DL 02/12/2024 3:04 PM T [facility] ANION GAP 6.6 5 - 15 MMOL/L 02/12/2024 3:04 PM [facility] Comment:REFERENCE RANGE NOT ESTABLISHED OSMOLALITY (CALC) 293 MOSM/KG 024 3:04 PM T [facility] Comment:REFERENCE RANGE NOT ESTABLISHED GFR ESTIMATE 81(L) >90 ML/MIN/1. 73 M2 02/12/2024 3:04 PM CDT [facility] GFR NOTES GFR REFERENCE S: 02/12/2024 3:04 PM CDT [facility] [place] Comment: THE ESTIMATED GFR IS CALCULATED USING [...] CDT Betty Galvin MD LABORATORY Final Result [facility] [address] [place] [address], * LIPID PANEL (02/12/2024 8:51 AM CDT) CHOLESTEROL 152 <200 MG/DL 02/12/2024 3:04 PM CDT [facility] TRIGLYCERIDES 50 <150 MG/DL 02/12/2024 3:04 PM CDT [facility] HDL 46 >40 MG/DL 02/12/2024 3:04 PM CDT [facility] LDL-C 96 <100 MG/DL 02/12/2024 3:04 PM CDT [facility] VLDL CALCULATION 10 5 - 28 MG/DL 02/12/2024 3:04 PM CDT [facility] CHOL/HDL RATIO 3.3 0.0 - 4.0 02/12/2024 3:04 PM CDT [facility] LDL/HDL 2.1 0.41 - 2.13 02/12/2024 3:04 PM CDT [facility] NON HDL CHOLESTEROL 106 <140 MG/DL 02/12/2024 3:04 PM CDT [facility] 02/12/2024 8:51 AM CDT us Betty Galvin MD LABORATORY Final Result Performing Organization Address [facility] Co de Phone Number [address] [address], [place] [phone] * TSH W/REFLEX (02/12/2024 8:51 AM CDT) TSH 1.188 0.358 - 3.740 uIU/ML 02/12/2024 3:04 PM CDT [facility] 02/12/2024 8:51 AM CDT us Betty Galvin MD LABORATORY Final Result Performing Organization Address [facility] Co de Phone Number [address] [address], [place] [phone] * HEMOGLOBIN, GLYCOSYLATED (02/12/2024 8:51 AM CDT) HGB A1C 5.2 4.5 - 6.2 % 02/12/2024 3:10 PM CDT [facility] ESTIMATED AVG GLUCOSE 103 74 - 106 MG/DL 02/12/2024 3:10 PM CDT [facility] 02/12/2024 8:51 AM CDT us Betty Galvin MD LABORATORY Final Result Performing Organization Address [facility] Co de Phone Number [address] [place] [address], * HEPATITIS C ANTIBODY (02/12/2024 8:51 AM CDT) Pathologist [facility] HEPATITIS C AB NON-REACTI VE NON-REACT SHANELL 02/13/2024 7:12 PM CDT [facility] Comment: ANTIBODIES TO HCV NOT DETECTED. DOES NOT EXCLUDE THE POSSIBILITY OF EXPOSURE TO HCV. 02/12/2024 8:51 AM CDT us Betty Galvin MD LABORATORY Final Result [facility] [address] [place] [address], [place] [phone] [id number] * (ABNORMAL) URINALYSIS AUTO DIP (02/10/2024) Pathologist [facility] COLOR (U) YELLOW YELLOW [address], [facility] TRANSPARENCY CLEAR CLEAR [address], [facility] GLUCOSE (U) NEGATIVE NEGATIVE MG/DL MG[address], [facility] BILIRUBIN (U) NEGATIVE NEGATIVE MG-[address], [facility] KETONES MG/DL (U) 5 (TRACE)(A) NEGATIVE MG/DL MG[address], [facility] SPECIFIC GRAVITY (U) 1.025 1.001 - 1.035 MG[address], [facility] BLOOD (U) NEGATIVE NEGATIVE MG-[address], [facility] U PH 6.5 5.0 - 9.0 [address], [facility] PROTEIN (U) NEGATIVE NEGATIVE mg/dL MG-[address], [facility] UROBILINOGEN 0.2 0.2 - 1.0 EU/dL = mg/dL MG-[address], [facility] NITRITES NEGATIVE NEGATIVE MG/DL MG-[address], [facility] LEUKOCYTES (U) NEGATIVE NEGATIVE MG-[address], [facility] URINE SPECIMEN OBTAINED BY CLEAN CATCH PROCEDURE / Unknown 02/10/2024 us Betty Galvin MD URINE ORDERABLES Final Result -[address], [place] [address] [place] [address] [address] [place] [address], documented in this encounter Visit Diagnoses Diagnosis [...] hypertension Anxiety Anxiety state, unspecified Need for ykqtzemmmj-xcnpsgf-pxcjhmezb (Tdap) vaccine Need for prophylactic vaccination with combined nrnexgtwsw-eekbnks-wxopjsdlg (DTP) vaccine Mild episode of recurrent major depressive disorder (CMS/HCC) documented in this encounter Additional Health Concerns Assessment Noted Time PHQ-9 Depression Total Score: 7 02/10/20 24 3:34 PM CDT documented as of this encounter Care Teams Cleaning Custodian Relationship Specialty Start Date End Date Betty Galvin MD [address] [facility] [address] [place] [address] PCP - General INTERNAL MEDICINE 02/10/24 documented as of this encounter
--- OUTSIDE RECORDS SUMMARY | 2024-05-22 01:08 | XMS_ITS | Encounter Summary ---
Author Organization [facility] Address [address] [place] [address]. [place] [address] [place] [address] Care Team Providers Care Hired Hand Name Role Phone Betty Galvin MD Primary Care Provider [phone] Encounter Details Date Type Department Care Team [...] on file Legal Sex Male 5:38 PM DINKEY ENGINEER Gender Identity Not on file Sexual Orientation Not on file documented as of this encounter Plan of Treatment Upcoming Encounters Date Type Department Care Team (Late st Contact Info) Description 05/27/2024 1:40 PM DINKEY ENGINEER Office Visit [facility] Medical Group Multispecialty Care - [address] [place] [address] Ryann Renner, BOARD SAW RUNNER [address] [facility] [address] [place] [address] 06/15/2024 1:00 PM DINKEY ENGINEER Office Visit [facility] Medical Group Multispecialty Care - [place] [address] [facility] [address] [place] [address] Betty Galvin MD [address] [facility] [address] [place] [address] 11/30/2024 9:40 AM CDT Office Visit [facility] Multispecialty Care - [facility] [address] [place] [address] Nilo Dasilva DO [address] [facility] [address] [place] [address] documented as of this encounter Visit Diagnoses Not on filedocumented in this encounter Additional Health Concerns Assessment Noted Time PHQ-9 Depression Total Score: 7 02/10/20 24 3:34 PM CDT documented as of this encounter Care Teams Hired Hand Relationship Specialty Start Date End Date Betty Galvin MD [address] [facility] [address] [place] [address] PCP - General INTERNAL MEDICINE 02/10/24 documented as of this encounter
--- OUTSIDE RECORDS SUMMARY | 2024-05-22 01:08 | XMS_ITS | Encounter Summary ---
Author Organization [facility] Address [address] [place] [address]. 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 Gender Identity Not on file Sexual Orientation Not on file documented as of this encounter Plan of Treatment Upcoming Encounters Date Type Department Care Team (Late st Contact Info) Description 05/27/2024 1:40 PM TELECOMMUNICATIONS SALES REPRESENTATIVE Office Visit [facility] Medical Group Multispecialty Care - [address] [place] [address] Ryann Renner NP [address] [facility] [address] [place] [address] 06/15/2024 1:00 PM TELECOMMUNICATIONS SALES REPRESENTATIVE Office Visit [facility] Medical [facility] Multispecialty Care - [address] [place] [address] Betty Galvin MD [address] [place] [address] [address] [place] [address] 11/30/2024 9:40 AM CDT Office Visit [facility] Medical Group Multispecialty Care - [facility] [address] [facility] [address] [place] [address] Nilo Dasilva DO [address] [facility] [address] [place] [address] documented as of this encounter Visit Diagnoses Not on filedocumented in this encounter Care Teams Clinical Nursing Instructor Relationship Specialty Start Date End Date None, Provider, PCP - General 07/16/19 02/09/24 documented as of this encounter
--- OUTSIDE RECORDS SUMMARY | 2024-05-22 01:08 | XMS_ITS | Encounter Summary ---
Author Organization [facility] Address [address] [place] [address]. 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 Gender Identity Not on file Sexual Orientation Not on file documented as of this encounter Plan of Treatment Upcoming Encounters Date Type Department Care Team (Late Contact Info) Description 05/27/2024 1:40 PM VASCULAR SURGERY PHYSICIAN Office Visit [facility] Medical [facility] Multispecialty Care - [address] [place] [address] Ryann Renner NP [address] [facility] [address] [place] [address] 06/15/2024 1:00 PM VASCULAR SURGERY PHYSICIAN Office Visit [facility] Multispecialty Care - [address] [place] [address] Betty Galvin MD [address] [facility] [address] [place] [address] 11/30/2024 9:40 AM CDT [facility] [address] [place] [address] Nilo Dasilva DO [address] [facility] [address] [place] [address] documented as of this encounter Procedures Procedure Name Priority Date/Time Associated Diagnosis Comments SLEEP STUDY GENERIC (SCAN ORDER) 06/12/2015 documented in this encounter Results * SLEEP STUDY GENERIC (SCAN ORDER) (06/12/2015) 06/12/2015 us [facility] Scanned SCANNING Final Resu lt documented in this encounter Visit Diagnoses Not on filedocumented in this encounter Care Teams Labor Relations Manager Relationship Specialty Start Date End Date None, Provider, PCP - General 07/16/19 02/09/24 Betty Galvin MD [address] [facility] [address] [place] [address] PCP - General INTERNAL MEDICINE 02/10/24 documented as of this encounter
--- OUTSIDE RECORDS SUMMARY | 2024-05-22 01:09 | XMS_ITS | Encounter Summary ---
Author Organization [facility] Address [address] [place] [address]. 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 [place] [address] Ryann Renner NP [address] [place] [address] 06/15/2024 1:00 PM CASKET LINER Office Visit [facility] Medical [facility] Multispecialty Care - [place] [address] [place] [address] Betty Galvin MD [address] [facility] [address] [place] [address] 11/30/2024 9:40 AM CDT Office Visit [facility] Medical [facility] Multispecialty Care - [facility] [address] [place] [address] Nilo Dasilva DO [address] [place] [address] documented as of this encounter Visit Diagnoses Not on filedocumented in this encounter
== END 2024-05-16 22:41 | disposition home or self-care (01) ==
PROVIDERS: Emergency Provider Student in an Organized Health Care Education/Training Program; PCP Internal Medicine
DX: M25.811 Other specified joint disorders, right shoulder (principal); S16.1XXA Strain of muscle, fascia and tendon at neck level, initial encounter; I10 Essential (primary) hypertension; G47.33 Obstructive sleep apnea (adult) (pediatric); E66.9 Obesity, unspecified; Z68.35 Body mass index [BMI] 35.0-35.9, adult; F41.9 Anxiety disorder, unspecified; M19.011 Primary osteoarthritis, right shoulder; X58.XXXA Exposure to other specified factors, initial encounter
CPT/HCPCS: 72125; 73200; 96372; 99284; J1171; J7512